=== PATIENT | female | born 1960 | race Caucasian/White ===

== ENCOUNTER → 2017-11-25 | Day surgery (SDC) | payer BC ==
[~2017-11-25] MED LIST: EPINEPHrine 1 MG/ML VIAL; PROPOFOL 40 ML IV
[2017-11-25 09:33] LABS: ADD MAN DIFF? NO
[2017-11-25 09:37] LABS: BASO # 0.1 x10^3/uL (0.0-0.2); BASO % 1 % (0-3); EOS # 0.4 x10^3/uL (0.0-0.7); EOS % 4 % (0-3); HEMOGLOBIN 15.1 g/dL (12.0-15.5); LYMPH # 2.1 x10^3/uL (1.0-4.8); LYMPH % 20 % (24-48); MEAN CORPUSCULAR HEMOGLOBIN 31 pg (25-35); MEAN CORPUSCULAR HGB CONC 34 g/dL (31-37); MEAN CORPUSCULAR VOLUME 91 fL (79-100); MONO # 0.7 x10^3/uL (0.0-1.1); MONO % 6 % (0-9); NEUT # 7.5 x10^3uL (1.8-7.7); NEUT % 70 % (31-73); PLATELET COUNT 299 x10^3/uL (140-400); RED BLOOD COUNT 4.93 x10^6/uL (3.50-5.40); WHITE BLOOD COUNT 10.8 x10^3/uL (4.0-11.0)
[2017-11-25] MEDS: IV RINGERS,LACTATED 1000ML 1,000 ML IV (09:37)
[2017-11-25] MEDS: ALBUTEROL SULFATE 2.5 MG/3 ML NEBU. NEB (09:39)
[2017-11-25 09:53] LABS: INR 1.1 (0.8-1.1); PROTHROMBIN TIME PATIENT 13.2 SEC (11.7-14.0)
== END | disposition home or self-care (01) ==
LOC: SURG 08:55
DX: J98.4 Other disorders of lung (principal); E78.00 Pure hypercholesterolemia, unspecified; I10 Essential (primary) hypertension; J44.9 Chronic obstructive pulmonary disease, unspecified; K21.9 Gastro-esophageal reflux disease without esophagitis; F17.200 Nicotine dependence, unspecified, uncomplicated; Z79.899 Other long term (current) drug therapy; Z98.51 Tubal ligation status
CPT/HCPCS: 31622; 31625; 36415; 85025; 85610; 88305; 94640; J0171; J2704; J7613

== ENCOUNTER → 2017-12-10 | Outpatient (CLI) | payer BC | END | disposition home or self-care (01) | LOC: PETSC 09:17 | DX: R91.8 Other nonspecific abnormal finding of lung field (principal); I10 Essential (primary) hypertension; E78.00 Pure hypercholesterolemia, unspecified; J44.9 Chronic obstructive pulmonary disease, unspecified; K21.9 Gastro-esophageal reflux disease without esophagitis | CPT/HCPCS: 78815; A9552 ==

== ENCOUNTER 2017-12-18 07:09 | Outpatient (CLI) | payer BC ==
[2017-12-18 07:37] LABS: ADD MAN DIFF? NO
[2017-12-18 07:49] LABS: BASO # 0.1 x10^3/uL (0.0-0.2); BASO % 1 % (0-3); EOS # 0.3 x10^3/uL (0.0-0.7); EOS % 2 % (0-3); HEMOGLOBIN 14.5 g/dL (12.0-15.5); LYMPH # 2.7 x10^3/uL (1.0-4.8); LYMPH % 21 % (24-48); MEAN CORPUSCULAR HEMOGLOBIN 31 pg (25-35); MEAN CORPUSCULAR HGB CONC 34 g/dL (31-37); MEAN CORPUSCULAR VOLUME 92 fL (79-100); MONO % 8 % (0-9); NEUT # 8.5 x10^3uL (1.8-7.7); NEUT % 68 % (31-73); PLATELET COUNT 396 x10^3/uL (140-400); RED BLOOD COUNT 4.69 x10^6/uL (3.50-5.40); WHITE BLOOD COUNT 12.5 x10^3/uL (4.0-11.0)
[2017-12-18] MEDS ORDERED: LIDOCAINE WITH 8.4% SOD BICARB 3 ML DISP.SYRIN. (07:51)
[2017-12-18] MEDS ORDERED: fentaNYL PF VIAL 100 MCG/2 ML VIAL (07:51)
[2017-12-18] MEDS ORDERED: MIDAZOLAM HCL/PF 2 MG/2 ML VIAL. (07:51)
[2017-12-18 07:57] LABS: INR 1.1 (0.8-1.1); PARTIAL THROMBOPLASTIN TIME 32 SEC (24-38); PROTHROMBIN TIME PATIENT 13.6 SEC (11.7-14.0)
[2017-12-18] MEDS: MIDAZOLAM HCL/PF 2 MG/2 ML VIAL. IV (08:59)
[2017-12-18] MEDS: LIDOCAINE WITH 8.4% SOD BICARB 3 ML DISP.SYRIN. IJ (09:00)
[2017-12-18] MEDS: fentaNYL PF VIAL 100 MCG/2 ML VIAL IV (09:00)
== END 2017-12-18 12:05 | disposition home or self-care (01) ==
LOC: INTRAD 07:09
DX: C34.32 Malignant neoplasm of lower lobe, left bronchus or lung (principal); E78.00 Pure hypercholesterolemia, unspecified; I10 Essential (primary) hypertension; J44.9 Chronic obstructive pulmonary disease, unspecified; K21.9 Gastro-esophageal reflux disease without esophagitis; F17.210 Nicotine dependence, cigarettes, uncomplicated; Z72.89 Other problems related to lifestyle; Z79.01 Long term (current) use of anticoagulants; Z98.51 Tubal ligation status; Z79.899 Other long term (current) drug therapy; Z98.890 Other specified postprocedural states
CPT/HCPCS: 32405; 36415; 71045; 77012; 85025; 85610; 85730; 88305; 88341; 88342; 99152; 99153; J2250; J3010

== ENCOUNTER 2018-01-15 06:51 | Outpatient (CLI) | payer BC ==
[2018-01-15 07:13] LABS: ADD MAN DIFF? NO
[2018-01-15 07:19] LABS: BASO # 0.1 x10^3/uL (0.0-0.2); BASO % 1 % (0-3); EOS # 0.6 x10^3/uL (0.0-0.7); EOS % 5 % (0-3); HEMOGLOBIN 13.7 g/dL (12.0-15.5); LYMPH # 3.2 x10^3/uL (1.0-4.8); LYMPH % 26 % (24-48); MEAN CORPUSCULAR HEMOGLOBIN 30 pg (25-35); MEAN CORPUSCULAR HGB CONC 34 g/dL (31-37); MEAN CORPUSCULAR VOLUME 91 fL (79-100); MONO # 0.9 x10^3/uL (0.0-1.1); MONO % 7 % (0-9); NEUT # 7.3 x10^3uL (1.8-7.7); NEUT % 60 % (31-73); PLATELET COUNT 395 x10^3/uL (140-400); RED BLOOD COUNT 4.51 x10^6/uL (3.50-5.40); RED CELL DISTRIBUTION WIDTH 14.7 % (11.5-14.5); WHITE BLOOD COUNT 12.1 x10^3/uL (4.0-11.0)
[2018-01-15 07:31] LABS: INR 1.1 (0.8-1.1); PROTHROMBIN TIME PATIENT 13.3 SEC (11.7-14.0)
[2018-01-15 07:32] LABS: PARTIAL THROMBOPLASTIN TIME 32 SEC (24-38)
[2018-01-15] MEDS ORDERED: LIDOCAINE 1%/EPI 1:100,000 20 ML VIAL. (08:05)
[2018-01-15] MEDS: MIDAZOLAM HCL/PF 2 MG/2 ML VIAL. IV (08:30)
[2018-01-15] MEDS: fentaNYL PF VIAL 100 MCG/2 ML VIAL IV (08:30)
[2018-01-15] MEDS: LIDOCAINE 1%/EPI 1:100,000 20 ML VIAL. IJ (08:30)
[2018-01-15] MEDS ORDERED: fentaNYL PF VIAL 100 MCG/2 ML VIAL ×2 (08:33→08:56)
[2018-01-15] MEDS ORDERED: MIDAZOLAM HCL/PF 2 MG/2 ML VIAL. ×2 (08:33→08:56)
[2018-01-15] MEDS ORDERED: VANCOMYCIN 1GM IVPB FOR OMNI 250 ML (08:33)
[2018-01-15] MEDS: VANCOMYCIN 1GM IVPB FOR OMNI 250 ML IV (09:15)
== END 2018-01-15 11:05 | disposition home or self-care (01) ==
LOC: INTRAD 06:51
DX: C34.90 Malignant neoplasm of unspecified part of unspecified bronchus or lung (principal); I10 Essential (primary) hypertension; E78.00 Pure hypercholesterolemia, unspecified; J44.9 Chronic obstructive pulmonary disease, unspecified; K21.9 Gastro-esophageal reflux disease without esophagitis; Z98.51 Tubal ligation status; Z72.89 Other problems related to lifestyle; Z88.0 Allergy status to penicillin; Z79.899 Other long term (current) drug therapy; F17.210 Nicotine dependence, cigarettes, uncomplicated; Z79.01 Long term (current) use of anticoagulants
CPT/HCPCS: 36415; 36561; 76937; 77001; 85025; 85610; 85730; 99152; 99153; C1751; C1788; C1892; J2250; J3010; J3370; J3490

== ENCOUNTER 2018-01-16 13:48 | Emergency (ER) | payer BC | END 2018-01-16 14:52 | disposition home or self-care (01) | LOC: ER 13:48 | DX: Z46.89 Encounter for fitting and adjustment of other specified devices (principal); Z88.0 Allergy status to penicillin | CPT/HCPCS: 99281; 99282 ==

== ENCOUNTER → 2018-02-16 | Outpatient (CLI) | payer BC ==
[2018-01-16 14:30] VITALS: BP 169/72
[~2018-02-16] MED LIST changes: +ACLI400A2 IH; +ATOR10TA60 PO; -EPINEPHrine 1 MG/ML VIAL; +FLUT16SP NS; +HYDR-971 PO; +LOSA50TA7 PO; +PROAIR HFA8.5 GM INH; -PROPOFOL 40 ML IV
[2018-02-16 10:03] LABS: CREATININE 0.8 mg/dL (0.6-1.0); GFR 73.7
== END | disposition home or self-care (01) ==
LOC: LAB 09:18
PROVIDERS: ATTEND Internal Medicine Hematology & Oncology
DX: C34.32 Malignant neoplasm of lower lobe, left bronchus or lung (principal); I10 Essential (primary) hypertension; E78.00 Pure hypercholesterolemia, unspecified; K21.9 Gastro-esophageal reflux disease without esophagitis; Z88.0 Allergy status to penicillin
CPT/HCPCS: 36415; 82565

== ENCOUNTER 2018-03-03 11:58 | Inpatient (IN) | payer BC ==
[~2018-03-03] VITALS: Ht 165.1 cm; Wt 56.7 kg
[2018-03-03] MEDS ORDERED: ONDA8TAB9 PO (13:57)
[2018-03-03] MEDS ORDERED: ONDANSETRON ODT 4 MG TAB.RAPDIS. PO PRN (14:30)
[2018-03-03 14:36] LABS: BASO % 1 % (0-3); EOS % 2 % (0-3); HEMOGLOBIN 7.4 g/dL (12.0-15.5); LYMPH # 0.2 x10^3/uL (1.0-4.8); LYMPH % 40 % (24-48); MEAN CORPUSCULAR HEMOGLOBIN 31 pg (25-35); MEAN CORPUSCULAR HGB CONC 36 g/dL (31-37); MEAN CORPUSCULAR VOLUME 87 fL (79-100); MONO # 0.1 x10^3/uL (0.0-1.1); MONO % 20 % (0-9); NEUT # 0.2 x10^3uL (1.8-7.7); NEUT % 37 % (31-73); PLATELET COUNT 53 x10^3/uL (140-400); RED CELL DISTRIBUTION WIDTH 13.6 % (11.5-14.5)
[2018-03-03 14:49] VITALS: BP 111/62
[2018-03-03 14:53] LABS: HEMATOCRIT 20.8 % (36.0-47.0); WHITE BLOOD COUNT 0.6 x10^3/uL (4.0-11.0)
[2018-03-03 14:54] LABS: ALBUMIN 3.1 g/dL (3.4-5.0); ALBUMIN/GLOBULIN RATIO 0.8 (1.0-1.7); CALCIUM 9.1 mg/dL (8.5-10.1); CREATININE 0.6 mg/dL (0.6-1.0); GFR 102.7; POTASSIUM 3.4 mmol/L (3.5-5.1); TOTAL BILIRUBIN 0.8 mg/dL (0.2-1.0)
[2018-03-03 15:34] LABS: % BANDS 9 % (0-9); % EOS 1 % (0-5); % LYMPHS 42 % (24-48); % MONOS 15 % (0-10); % SEGS 33 % (35-66)
[2018-03-03 15:35] LABS: PLT ESTIMATE DECREASED (ADEQUATE)
--- NOTE | 2018-03-03 15:58 | PDOC1 ---
History and Physical Date of Admission Date of Admission 03/03/18 Identification/Chief Complaint Chief Complaint n/v Source Source: Patient History of Present Illness History of Present Illness 57yo F, with stage 3B lung cancer on chemo and RT , was sent from DR. Pickard office for n/v. Pt last chemo was 1 week ago, since then, she cont having daily N/V, low po intake. TOday she vomited priscilla. with esophagus spasm. has chills, no fever. chronic cough. WBC 0.7, plt 53, hb7.4 . coughing sputum with mild blood streaks. Past Medical History Past Medical History lung CA Cardiovascular: HTN Pulmonary: COPD Social History Smoke: Quit ALCOHOL: social Drugs: None Current Medications Current Medications Current Medications Medications (Trade) Dose Ordered Sig/Mark Start Time Stop Time Status Last Admin Dose Admin Morphine Sulfate (Morphine Sulfate) 4 mg PRN Q2HR PRN 03/03/18 14:15 Ondansetron HCl (Zofran Odt) 8 mg PRN Q8HRS PRN 03/03/18 14:30 Allergies Allergies Allergies Coded Allergies Type Severity Reaction Last Updated Verified Penicillins Allergy Intermediate Hives 11/25/17 Yes ROS Review of System CONSTITUTIONAL: No fever or chills EYES: No recent changes SKIN: No rash or itching CARDIOVASCULAR: No chest pain, syncope, palpitations, or edema RESPIRATORY: No SOB or cough GASTROINTESTINAL: No nausea, vomiting or abdominal pain NEUROLOGICAL: No headaches or weakness ENDOCRINE: No cold or heat intolerance GENITOURINARY: No urgency or frequency of urination MUSCULOSKELETAL: No back pain or joint pain LYMPHATICS: No enlarged lymph nodes PSYCHIATRIC: No anxiety or depression Physical Exam Physical Exam GEN.: No apparent distress. Alert and oriented. HEENT: Head is normocephalic, atraumatic NECK: Supple. LUNGS: Clear to auscultation. HEART: RRR, S1, S2 present. Peripheral pulses intact ABDOMEN: Soft, nontender. Positive bowel sounds. EXTREMITIES: Without any cyanosis. NEUROLOGIC: Normal speech, normal tone PSYCHIATRIC: Normal affect, normal mood. SKIN: No ulcerations Vitals Vitals Vital Signs Date Time Temp Pulse Resp B/P (MAP) Pulse Ox O2 Delivery O2 Flow Rate FiO2 03/03/18 14:49 98.6 127 17 111/62 (78) 100 Room Air 98.6 Labs Labs Laboratory Tests Test 03/03/18 14:20 White Blood Count 0.6 x10^3/uL (4.0-11.0) Red Blood Count 2.40 x10^6/uL (3.50-5.40) Hemoglobin 7.4 g/dL (12.0-15.5) Hematocrit 20.8 % (36.0-47.0) Mean Corpuscular Volume 87 fL (79-100) Mean Corpuscular Hemoglobin 31 pg (25-35) Mean Corpuscular Hemoglobin Concent 36 g/dL (31-37) Red Cell Distribution Width 13.6 % (11.5-14.5) Platelet Count 53 x10^3/uL (140-400) Neutrophils (%) (Auto) 37 % (31-73) Lymphocytes (%) (Auto) 40 % (24-48) Monocytes (%) (Auto) 20 % (0-9) Eosinophils (%) (Auto) 2 % (0-3) Basophils (%) (Auto) 1 % (0-3) Neutrophils # (Auto) 0.2 x10^3uL (1.8-7.7) Lymphocytes # (Auto) 0.2 x10^3/uL (1.0-4.8) Monocytes # (Auto) 0.1 x10^3/uL (0.0-1.1) Eosinophils # (Auto) 0.0 x10^3/uL (0.0-0.7) Basophils # (Auto) 0.0 x10^3/uL (0.0-0.2) Segmented Neutrophils % 33 % (35-66) Band Neutrophils % 9 % (0-9) Lymphocytes % 42 % (24-48) Monocytes % 15 % (0-10) Eosinophils % 1 % (0-5) Dohle Bodies Few Platelet Estimate Decreased (ADEQUATE) Sodium Level 138 mmol/L (136-145) Potassium Level 3.4 mmol/L (3.5-5.1) Chloride Level 100 mmol/L (98-107) Carbon Dioxide Level 27 mmol/L (21-32) Anion Gap 11 (6-14) Blood Urea Nitrogen 9 mg/dL (7-20) Creatinine 0.6 mg/dL (0.6-1.0) Estimated GFR (Cockcroft-Gault) 102.7 BUN/Creatinine Ratio 15 (6-20) Glucose Level 116 mg/dL (70-99) Calcium Level 9.1 mg/dL (8.5-10.1) Total Bilirubin 0.8 mg/dL (0.2-1.0) Aspartate Amino Transf (AST/SGOT) 10 U/L (15-37) Alanine Aminotransferase (ALT/SGPT) 8 U/L (14-59) Alkaline Phosphatase 78 U/L (46-116) Total Protein 7.0 g/dL (6.4-8.2) Albumin 3.1 g/dL (3.4-5.0) Albumin/Globulin Ratio 0.8 (1.0-1.7) Laboratory Tests Test 03/03/18 14:20 White Blood Count 0.6 x10^3/uL (4.0-11.0) Red Blood Count 2.40 x10^6/uL (3.50-5.40) Hemoglobin 7.4 g/dL (12.0-15.5) Hematocrit 20.8 % (36.0-47.0) Mean Corpuscular Volume 87 fL (79-100) Mean Corpuscular Hemoglobin 31 pg (25-35) Mean Corpuscular Hemoglobin Concent 36 g/dL (31-37) Red Cell Distribution Width 13.6 % (11.5-14.5) Platelet Count 53 x10^3/uL (140-400) Neutrophils (%) (Auto) 37 % (31-73) Lymphocytes (%) (Auto) 40 % (24-48) Monocytes (%) (Auto) 20 % (0-9) Eosinophils (%) (Auto) 2 % (0-3) Basophils (%) (Auto) 1 % (0-3) Neutrophils # (Auto) 0.2 x10^3uL (1.8-7.7) Lymphocytes # (Auto) 0.2 x10^3/uL (1.0-4.8) Monocytes # (Auto) 0.1 x10^3/uL (0.0-1.1) Eosinophils # (Auto) 0.0 x10^3/uL (0.0-0.7) Basophils # (Auto) 0.0 x10^3/uL (0.0-0.2) Segmented Neutrophils % 33 % (35-66) Band Neutrophils % 9 % (0-9) Lymphocytes % 42 % (24-48) Monocytes % 15 % (0-10) Eosinophils % 1 % (0-5) Dohle Bodies Few Platelet Estimate Decreased (ADEQUATE) Sodium Level 138 mmol/L (136-145) Potassium Level 3.4 mmol/L (3.5-5.1) Chloride Level 100 mmol/L (98-107) Carbon Dioxide Level 27 mmol/L (21-32) Anion Gap 11 (6-14) Blood Urea Nitrogen 9 mg/dL (7-20) Creatinine 0.6 mg/dL (0.6-1.0) Estimated GFR (Cockcroft-Gault) 102.7 BUN/Creatinine Ratio 15 (6-20) Glucose Level 116 mg/dL (70-99) Calcium Level 9.1 mg/dL (8.5-10.1) Total Bilirubin 0.8 mg/dL (0.2-1.0) Aspartate Amino Transf (AST/SGOT) 10 U/L (15-37) Alanine Aminotransferase (ALT/SGPT) 8 U/L (14-59) Alkaline Phosphatase 78 U/L (46-116) Total Protein 7.0 g/dL (6.4-8.2) Albumin 3.1 g/dL (3.4-5.0) Albumin/Globulin Ratio 0.8 (1.0-1.7) VTE Prophylaxis Ordered VTE Prophylaxis Devices: Yes VTE Pharmacological Prophylaxi: No Assessment/Plan Assessment/Plan intractable N/V from chemo h/o HTN, hld copd but no home meds lung Ca stage 3b, on chemo and RT hypokalemia pancytopenia from chemo RT related esophagitis PLAN: DR. BYRD pt, ipc will sign off tmr clear liquid diet for now, PPN check mag, miguelina replete K cbc daily RT, ONCO consult gi cocktail prn cxr gi ppx pain control abluterol , cough meds as needed. RT was hled since Thursday given low WBC MIRIAM JANG MD Mar 03, 2018 15:58
[2018-03-03] MEDS ORDERED: DOCUSATE SODIUM 100 MG CAPSULE. PO PRN (16:00)
[2018-03-03] MEDS ORDERED: traMADol 50 MG TABLET PO PRN (16:00)
[2018-03-03] MEDS ORDERED: HYDROcodone/APAP 5/325MG 1 TAB TABLET PO PRN (16:00)
[2018-03-03] MEDS ORDERED: POTASSIUM CHLORIDE 20 MEQ TABLET.ER. PO ONE (16:00)
[2018-03-03] MEDS ORDERED: guaiFENesin/CODEINE 100mg/10mg 5 ML LIQUID PO PRN (16:00)
[2018-03-03] MEDS ORDERED: ALBUTEROL SULFATE 2.5 MG/3 ML NEBU. NEB PRN (16:00)
[2018-03-03] MEDS ORDERED: AMINO AC 3%/ELECTROLYTE/GLYCER 1,000 ML IV SCH (16:00)
[2018-03-03] MEDS ORDERED: LIDO:MAALOX 1:1 20 ML SINGLE DOSE. PO PRN (16:00)
[2018-03-03] MEDS ORDERED: ACETAMINOPHEN 325 MG TABLET. PO PRN (16:00)
[2018-03-03 16:48] LABS: MAGNESIUM 1.3 mg/dL (1.8-2.4); PHOSPHORUS 2.4 mg/dL (2.6-4.7)
--- NOTE | 2018-03-03 18:58 | PDOC2 ---
CONSULT Date of Consult Date of Consult DATE: 03/03/18 TIME: 18:45 Reason for consultation: Nausea and vomiting Consult: Hematology oncology, Dr. Dillon Adan History of present illness: She is a 57-year-old female with history of stage III lung cancer on chemotherapy, she came in with nausea and vomiting, it is severe, it is persistent, worse with chemotherapy and radiation therapy, associated with some radiation esophagitis, and she hasn't had any full meals and quite some time, she hasn't eaten anything today, and has lost about 20-30 pounds over the last few months. It's also associated with some weakness, she's taken some nausea pills but they come up quickly so they don't help. XRT has been on hold for a few days due to cytopenias related to chemotherapy and radiation. Past medical history: Lung cancer Hypertension Hyperlipidemia COPD Past surgical history: Lung biopsy Ovarian cyst removal Tonsillectomy Tubal ligation Allergies: Penicillin Medications: See attached list Social history: , still smoking, social alcohol Family history: Mother with colon cancer Review of systems: No fevers, constipation, rash related to radiation over the port and the right chest, headaches severe now, no dysuria, weak, tired, hungry , nauseous, esophageal spasms after eating, shortness of breath after coughing spells, 20-30 pound weight loss lately, has not eaten today, otherwise 10 point review of systems is negative Physical exam: Vitals reviewed, no fevers Gen.: thin, malaised, in no acute distress, resting in bed HEENT: mucous membranes dry, head normocephalic atraumatic Neck: Supple, no lymphadenopathy Lymph nodes: No palpable lymphadenopathy neck or axilla Lungs: Breathing comfortably on room air, no evidence of respiratory distress Abdomen: Soft, nontender, nondistended Extremities: No cyanosis or edema Skin: Erythema over the right chest and over the port area related to radiation Neuro: Alert and oriented 3 Psych: Normal mood and affect Lab reviewed: White count 2.6, hemoglobin 7.4, platelets 53, potassium 3.4, magnesium 1.3, phosphorus 2.4, creatinine 0.6 Rads reviewed: No current radiology scans though her last brain MRI from 01 January showed no evidence of disease Case discussed with: Patient and her , and her nurse, records reviewed in [facility] and [facility], please see note for summary details. Assessment and Plan: 57-year-old female with stage IIIB non-small cell lung adenocarcinoma diagnosed December 2017, currently cycle 2 day 14 of cisplatin and etoposide and radiotherapy, admitted due to nausea and vomiting, esophageal spasms, and cytopenias. Nausea and vomiting: She has Zofran ordered IV as well as Compazine IV will be ordered, pending IV fluid replacement as soon as she has IV access, a peripheral IV would be OK as they had trouble assessing her port and she has some erythema over that area related to radiation Lung ca: tx on hold during acute admit cytopenias: due to tx, no fevers, transfuse prn Hb <7 tobacco abuse: Highly recommend smoking cessation Hypokalemia and hypomagnesemia and hypophosphatemia: Defer replacement to primary Esophageal spasms: She has a proton pump inhibitor and GI cocktail ordered when necessary as well as pain meds when necessary Thank you kindly for this consultation, Dr. Pickard will return in the morning, and please don't hesitate to call with any further questions. Past Medical History Cardiovascular: HTN Pulmonary: COPD Social History Quit ALCOHOL: social Drugs: None Current Medications Current Medications Current Medications Morphine Sulfate (Morphine Sulfate) 4 mg PRN Q2HR PRN IV MODERATE PAIN; Start 03/03/18 at 14:15 Ondansetron HCl (Zofran Odt) 8 mg PRN Q8HRS PRN PO NAUSEA/VOMITING; Start 03/03 at 14:30 Amino Acids/ Glycerin/ Electrolytes 1,000 ml @ 80 mls/hr [id number] IV ; Start at 16:00; Stop 03/03/18 at 18:19; Status DC Acetaminophen (Tylenol) 650 mg PRN Q6HRS PRN PO FEVER; Start 03/03/18 at 16:00 Ondansetron HCl (Zofran) 4 mg PRN Q6HRS PRN IV NAUSEA/VOMITING; Start 03/03/18 at 16:00 Morphine Sulfate (Morphine Sulfate) 2 mg PRN Q2HR PRN IV MODERATE TO SEVERE PAIN; Start 03/03/18 at 16:00 Tramadol HCl (Ultram) 50 mg PRN Q6HRS PRN PO MILD TO MODERATE PAIN; Start 03/03 at 16:00 Docusate Sodium (Colace) 100 mg PRN DAILY PRN PO CONSTIPATION; Start 03/03/18 at 16:00 Acetaminophen/ Hydrocodone Bitart (Lortab 5/325) 1 tab PRN Q4HRS PRN PO MODERATE PAIN; Start 03/03/18 at 16:00 Multi-Ingredient Mouthwash/Gargle (Gi Cocktail) 20 ml PRN QID PRN PO CHEST PAIN ; Start 03/03/18 at 16:00 Pantoprazole Sodium (Protonix) 40 mg DAILYAC PO ; Start 03/04/18 at 07:30 Potassium Chloride (Klor-Con) 40 meq 1X ONCE PO Last administered on at 18:16; Start 03/03/18 at 16:00; Stop 03/03/18 at 16:01; Status DC Albuterol Sulfate (Ventolin Neb Soln) 2.5 mg PRN Q4HRS PRN NEB SHORTNESS OF BREATH; Start 03/03/18 at 16:00 Guaifenesin/ Codeine Phosphate (Robitussin Ac) 5 ml PRN Q6HRS PRN PO COUGH; Start 03/03/18 at 16:00 Amino Acids/ Glycerin/ Electrolytes 1,000 ml @ 80 mls/hr [id number] IV ; Start at 19:00 Active Scripts Active Reported Zofran (Ondansetron Hcl) 8 Mg Tablet 1 Tab PO PRN Q8HRS Allergies Allergies: Coded Allergies: Penicillins (Verified Allergy, Intermediate, Hives, 11/25/17) Vitals VITALS Vital Signs Date Time Temp Pulse Resp B/P (MAP) Pulse Ox O2 Delivery O2 Flow Rate FiO2 03/03/18 14:49 98.6 127 17 111/62 (78) 100 Room Air 98.6 Labs Labs Laboratory Tests Test 03/03/18 14:20 White Blood Count 0.6 x10^3/uL (4.0-11.0) Red Blood Count 2.40 x10^6/uL (3.50-5.40) Hemoglobin 7.4 g/dL (12.0-15.5) Hematocrit 20.8 % (36.0-47.0) Mean Corpuscular Volume 87 fL (79-100) Mean Corpuscular Hemoglobin 31 pg (25-35) Mean Corpuscular Hemoglobin Concent 36 g/dL (31-37) Red Cell Distribution Width 13.6 % (11.5-14.5) Platelet Count 53 x10^3/uL (140-400) Neutrophils (%) (Auto) 37 % (31-73) Lymphocytes (%) (Auto) 40 % (24-48) Monocytes (%) (Auto) 20 % (0-9) Eosinophils (%) (Auto) 2 % (0-3) Basophils (%) (Auto) 1 % (0-3) Neutrophils # (Auto) 0.2 x10^3uL (1.8-7.7) Lymphocytes # (Auto) 0.2 x10^3/uL (1.0-4.8) Monocytes # (Auto) 0.1 x10^3/uL (0.0-1.1) Eosinophils # (Auto) 0.0 x10^3/uL (0.0-0.7) Basophils # (Auto) 0.0 x10^3/uL (0.0-0.2) Segmented Neutrophils % 33 % (35-66) Band Neutrophils % 9 % (0-9) Lymphocytes % 42 % (24-48) Monocytes % 15 % (0-10) Eosinophils % 1 % (0-5) Dohle Bodies Few Platelet Estimate Decreased (ADEQUATE) Sodium Level 138 mmol/L (136-145) Potassium Level 3.4 mmol/L (3.5-5.1) Chloride Level 100 mmol/L (98-107) Carbon Dioxide Level 27 mmol/L (21-32) Anion Gap 11 (6-14) Blood Urea Nitrogen 9 mg/dL (7-20) Creatinine 0.6 mg/dL (0.6-1.0) Estimated GFR (Cockcroft-Gault) 102.7 BUN/Creatinine Ratio 15 (6-20) Glucose Level 116 mg/dL (70-99) Calcium Level 9.1 mg/dL (8.5-10.1) Phosphorus Level 2.4 mg/dL (2.6-4.7) Magnesium Level 1.3 mg/dL (1.8-2.4) Total Bilirubin 0.8 mg/dL (0.2-1.0) Aspartate Amino Transf (AST/SGOT) 10 U/L (15-37) Alanine Aminotransferase (ALT/SGPT) 8 U/L (14-59) Alkaline Phosphatase 78 U/L (46-116) Total Protein 7.0 g/dL (6.4-8.2) Albumin 3.1 g/dL (3.4-5.0) Albumin/Globulin Ratio 0.8 (1.0-1.7) Laboratory Tests Test 03/03/18 14:20 White Blood Count 0.6 x10^3/uL (4.0-11.0) Red Blood Count 2.40 x10^6/uL (3.50-5.40) Hemoglobin 7.4 g/dL (12.0-15.5) Hematocrit 20.8 % (36.0-47.0) Mean Corpuscular Volume 87 fL (79-100) Mean Corpuscular Hemoglobin 31 pg (25-35) Mean Corpuscular Hemoglobin Concent 36 g/dL (31-37) Red Cell Distribution Width 13.6 % (11.5-14.5) Platelet Count 53 x10^3/uL (140-400) Neutrophils (%) (Auto) 37 % (31-73) Lymphocytes (%) (Auto) 40 % (24-48) Monocytes (%) (Auto) 20 % (0-9) Eosinophils (%) (Auto) 2 % (0-3) Basophils (%) (Auto) 1 % (0-3) Neutrophils # (Auto) 0.2 x10^3uL (1.8-7.7) Lymphocytes # (Auto) 0.2 x10^3/uL (1.0-4.8) Monocytes # (Auto) 0.1 x10^3/uL (0.0-1.1) Eosinophils # (Auto) 0.0 x10^3/uL (0.0-0.7) Basophils # (Auto) 0.0 x10^3/uL (0.0-0.2) Segmented Neutrophils % 33 % (35-66) Band Neutrophils % 9 % (0-9) Lymphocytes % 42 % (24-48) Monocytes % 15 % (0-10) Eosinophils % 1 % (0-5) Dohle Bodies Few Platelet Estimate Decreased (ADEQUATE) Sodium Level 138 mmol/L (136-145) Potassium Level 3.4 mmol/L (3.5-5.1) Chloride Level 100 mmol/L (98-107) Carbon Dioxide Level 27 mmol/L (21-32) Anion Gap 11 (6-14) Blood Urea Nitrogen 9 mg/dL (7-20) Creatinine 0.6 mg/dL (0.6-1.0) Estimated GFR (Cockcroft-Gault) 102.7 BUN/Creatinine Ratio 15 (6-20) Glucose Level 116 mg/dL (70-99) Calcium Level 9.1 mg/dL (8.5-10.1) Phosphorus Level 2.4 mg/dL (2.6-4.7) Magnesium Level 1.3 mg/dL (1.8-2.4) Total Bilirubin 0.8 mg/dL (0.2-1.0) Aspartate Amino Transf (AST/SGOT) 10 U/L (15-37) Alanine Aminotransferase (ALT/SGPT) 8 U/L (14-59) Alkaline Phosphatase 78 U/L (46-116) Total Protein 7.0 g/dL (6.4-8.2) Albumin 3.1 g/dL (3.4-5.0) Albumin/Globulin Ratio 0.8 (1.0-1.7) DILLON ADAN MD Mar 03, 2018 18:58
[2018-03-03 19:34] VITALS: BP 130/66
[2018-03-03] MEDS: AMINO AC 3%/ELECTROLYTE/GLYCER 1,000 ML IV SCH (19:36)
[2018-03-03] MEDS: ONDANSETRON PF 4 MG/2 ML VIAL. IV PRN (19:38)
[2018-03-03] MEDS: MORPHINE SULFATE 4 MG/ML VIAL. IV PRN ×2 (19:44→23:58)
[2018-03-04] VITALS (7 sets, daily range): BP systolic 97–131; BP diastolic 48–71
[2018-03-04] MEDS: ONDANSETRON PF 4 MG/2 ML VIAL. IV PRN ×2 (06:21→11:13)
[2018-03-04] MEDS: MORPHINE SULFATE 2 MG/ML VIAL. IV PRN (06:21)
[2018-03-04 06:50] LABS: CALCIUM 9.2 mg/dL (8.5-10.1); CREATININE 0.5 mg/dL (0.6-1.0); GFR 126.7; POTASSIUM 3.6 mmol/L (3.5-5.1)
[2018-03-04 06:52] LABS: BASO % 1 % (0-3); EOS % 4 % (0-3); HEMOGLOBIN 7.5 g/dL (12.0-15.5); LYMPH # 0.4 x10^3/uL (1.0-4.8); LYMPH % 47 % (24-48); MEAN CORPUSCULAR HEMOGLOBIN 31 pg (25-35); MEAN CORPUSCULAR HGB CONC 36 g/dL (31-37); MEAN CORPUSCULAR VOLUME 87 fL (79-100); MONO # 0.2 x10^3/uL (0.0-1.1); MONO % 20 % (0-9); NEUT # 0.3 x10^3uL (1.8-7.7); NEUT % 29 % (31-73); PLATELET COUNT 69 x10^3/uL (140-400); RED BLOOD COUNT 2.38 x10^6/uL (3.50-5.40)
[2018-03-04 07:23] LABS: HEMATOCRIT 20.6 % (36.0-47.0); WHITE BLOOD COUNT 0.9 x10^3/uL (4.0-11.0)
[2018-03-04] MEDS ORDERED: MAGNESIUM SULFATE 2GM 50 ML IV ONE (08:00)
--- NOTE | 2018-03-04 08:02 | PDOC ---
SUBJECTIVE Subjective Doing somewhat better, no vomiting since yesterday am. OBJECTIVE Objective Reviewed. Vital Signs Vital Signs Date Time Temp Pulse Resp B/P (MAP) Pulse Ox O2 Delivery O2 Flow Rate FiO2 03/04/18 07:10 98.4 110 17 109/56 (73) 97 Room Air 98.4 03/04/18 02:49 99.1 115 18 110/48 (68) 98 Room Air 99.1 03/04/18 00:00 99.3 107 16 131/71 (91) 96 Room Air 99.3 03/03/18 20:05 Room Air 03/03/18 19:40 97 Room Air 03/03/18 19:34 98.9 102 16 130/66 (87) 98 Room Air 98.9 03/03/18 14:49 98.6 127 17 111/62 (78) 100 Room Air 98.6 03/03/18 14:44 Room Air I & O Intake and Output 03/04/18 07:00 Intake Total 290 ml Balance 290 ml Intake Oral 290 ml PHYSICAL EXAM Physical Exam Alert, oriented RRR CTAB Abd soft, NT, ND No edema ASSESSMENT/PLAN Assessment/Plan Intractable N/V from chemo H/o HTN, hld copd but no home meds Lung cancer stage 3b, holding chemo and RT during admission Hypokalemia Hypomagnesemia Pancytopenia from chemo RT related esophagitis GI soft diet, PPN Replace Mg Repeat labs in AM Onc following COMMENT Lab Laboratory Tests Test 03/03/18 14:20 03/04/18 06:30 White Blood Count 0.6 x10^3/uL (4.0-11.0) 0.9 x10^3/uL (4.0-11.0) Red Blood Count 2.40 x10^6/uL (3.50-5.40) 2.38 x10^6/uL (3.50-5.40) Hemoglobin 7.4 g/dL (12.0-15.5) 7.5 g/dL (12.0-15.5) Hematocrit 20.8 % (36.0-47.0) 20.6 % (36.0-47.0) Mean Corpuscular Volume 87 fL (79-100) 87 fL (79-100) Mean Corpuscular Hemoglobin 31 pg (25-35) 31 pg (25-35) Mean Corpuscular Hemoglobin Concent 36 g/dL (31-37) 36 g/dL (31-37) Red Cell Distribution Width 13.6 % (11.5-14.5) 14.0 % (11.5-14.5) Platelet Count 53 x10^3/uL (140-400) 69 x10^3/uL (140-400) Neutrophils (%) (Auto) 37 % (31-73) 29 % (31-73) Lymphocytes (%) (Auto) 40 % (24-48) 47 % (24-48) Monocytes (%) (Auto) 20 % (0-9) 20 % (0-9) Eosinophils (%) (Auto) 2 % (0-3) 4 % (0-3) Basophils (%) (Auto) 1 % (0-3) 1 % (0-3) Neutrophils # (Auto) 0.2 x10^3uL (1.8-7.7) 0.3 x10^3uL (1.8-7.7) Lymphocytes # (Auto) 0.2 x10^3/uL (1.0-4.8) 0.4 x10^3/uL (1.0-4.8) Monocytes # (Auto) 0.1 x10^3/uL (0.0-1.1) 0.2 x10^3/uL (0.0-1.1) Eosinophils # (Auto) 0.0 x10^3/uL (0.0-0.7) 0.0 x10^3/uL (0.0-0.7) Basophils # (Auto) 0.0 x10^3/uL (0.0-0.2) 0.0 x10^3/uL (0.0-0.2) Segmented Neutrophils % 33 % (35-66) Band Neutrophils % 9 % (0-9) Lymphocytes % 42 % (24-48) Monocytes % 15 % (0-10) Eosinophils % 1 % (0-5) Dohle Bodies Few Platelet Estimate Decreased (ADEQUATE) Sodium Level 138 mmol/L (136-145) 136 mmol/L (136-145) Potassium Level 3.4 mmol/L (3.5-5.1) 3.6 mmol/L (3.5-5.1) Chloride Level 100 mmol/L (98-107) 99 mmol/L (98-107) Carbon Dioxide Level 27 mmol/L (21-32) 28 mmol/L (21-32) Anion Gap 11 (6-14) 9 (6-14) Blood Urea Nitrogen 9 mg/dL (7-20) 10 mg/dL (7-20) Creatinine 0.6 mg/dL (0.6-1.0) 0.5 mg/dL (0.6-1.0) Estimated GFR (Cockcroft-Gault) 102.7 126.7 BUN/Creatinine Ratio 15 (6-20) Glucose Level 116 mg/dL (70-99) 107 mg/dL (70-99) Calcium Level 9.1 mg/dL (8.5-10.1) 9.2 mg/dL (8.5-10.1) Phosphorus Level 2.4 mg/dL (2.6-4.7) Magnesium Level 1.3 mg/dL (1.8-2.4) Total Bilirubin 0.8 mg/dL (0.2-1.0) Aspartate Amino Transf (AST/SGOT) 10 U/L (15-37) Alanine Aminotransferase (ALT/SGPT) 8 U/L (14-59) Alkaline Phosphatase 78 U/L (46-116) Total Protein 7.0 g/dL (6.4-8.2) Albumin 3.1 g/dL (3.4-5.0) Albumin/Globulin Ratio 0.8 (1.0-1.7) BLANCA HARRISON MD Mar 04, 2018 08:02
[2018-03-04] MEDS: PANTOPRAZOLE 40 MG TABLET.DR. PO SCH (08:53)
[2018-03-04] MEDS: MORPHINE SULFATE 4 MG/ML VIAL. IV PRN ×3 (11:13→20:53)
[2018-03-04] MEDS: AMINO AC 3%/ELECTROLYTE/GLYCER 1,000 ML IV SCH ×3 (11:14→23:13)
[2018-03-04] MEDS ORDERED: MAGNESIUM SULFATE 4GM 100 ML IV ONE (14:15)
--- NOTE | 2018-03-04 16:24 | PDOC ---
PROGRESS NOTES Subjective Subjective HPI -f/u of stage IIIB non-small cell lung adenocarcinoma ROS - has n/v but better Objective Objective Vital Signs Date Time Temp Pulse Resp B/P (MAP) Pulse Ox O2 Delivery O2 Flow Rate FiO2 03/04/18 15:15 18 Room Air 03/04/18 15:05 98.3 109 111/67 (82) 99 98.3 Intake and Output 03/04/18 07:00 Intake Total 290 ml Balance 290 ml Intake Oral 290 ml Physical Exam Heart: Normal S1, Normal S2 General: Alert, Oriented X3 Lungs: Clear to auscultation Neuro: Normal speech Psych/Mental Status: Mental status NL Assessment Assessment Imp/Plan: 1. stage IIIB non-small cell lung adenocarcinoma diagnosed December 2017, currently cycle 2 day 15 of cisplatin and etoposide and radiotherapy, admitted due to nausea and vomiting, esophageal spasms, and cytopenias. 2. Nausea and vomiting: cont Zofran ordered IV as well as Compazine IV and IV fluid replacement 3. Neutropenia - start neupogen. 4. Hypomagnesemia - ordered Mg. Comment Review of Relevant I have reviewed the following items jessica (where applicable) has been applied. Labs Laboratory Tests Test 03/03/18 14:20 03/04/18 06:30 White Blood Count 0.6 x10^3/uL (4.0-11.0) 0.9 x10^3/uL (4.0-11.0) Red Blood Count 2.40 x10^6/uL (3.50-5.40) 2.38 x10^6/uL (3.50-5.40) Hemoglobin 7.4 g/dL (12.0-15.5) 7.5 g/dL (12.0-15.5) Hematocrit 20.8 % (36.0-47.0) 20.6 % (36.0-47.0) Mean Corpuscular Volume 87 fL (79-100) 87 fL (79-100) Mean Corpuscular Hemoglobin 31 pg (25-35) 31 pg (25-35) Mean Corpuscular Hemoglobin Concent 36 g/dL (31-37) 36 g/dL (31-37) Red Cell Distribution Width 13.6 % (11.5-14.5) 14.0 % (11.5-14.5) Platelet Count 53 x10^3/uL (140-400) 69 x10^3/uL (140-400) Neutrophils (%) (Auto) 37 % (31-73) 29 % (31-73) Lymphocytes (%) (Auto) 40 % (24-48) 47 % (24-48) Monocytes (%) (Auto) 20 % (0-9) 20 % (0-9) Eosinophils (%) (Auto) 2 % (0-3) 4 % (0-3) Basophils (%) (Auto) 1 % (0-3) 1 % (0-3) Neutrophils # (Auto) 0.2 x10^3uL (1.8-7.7) 0.3 x10^3uL (1.8-7.7) Lymphocytes # (Auto) 0.2 x10^3/uL (1.0-4.8) 0.4 x10^3/uL (1.0-4.8) Monocytes # (Auto) 0.1 x10^3/uL (0.0-1.1) 0.2 x10^3/uL (0.0-1.1) Eosinophils # (Auto) 0.0 x10^3/uL (0.0-0.7) 0.0 x10^3/uL (0.0-0.7) Basophils # (Auto) 0.0 x10^3/uL (0.0-0.2) 0.0 x10^3/uL (0.0-0.2) Segmented Neutrophils % 33 % (35-66) Band Neutrophils % 9 % (0-9) Lymphocytes % 42 % (24-48) Monocytes % 15 % (0-10) Eosinophils % 1 % (0-5) Dohle Bodies Few Platelet Estimate Decreased (ADEQUATE) Sodium Level 138 mmol/L (136-145) 136 mmol/L (136-145) Potassium Level 3.4 mmol/L (3.5-5.1) 3.6 mmol/L (3.5-5.1) Chloride Level 100 mmol/L (98-107) 99 mmol/L (98-107) Carbon Dioxide Level 27 mmol/L (21-32) 28 mmol/L (21-32) Anion Gap 11 (6-14) 9 (6-14) Blood Urea Nitrogen 9 mg/dL (7-20) 10 mg/dL (7-20) Creatinine 0.6 mg/dL (0.6-1.0) 0.5 mg/dL (0.6-1.0) Estimated GFR (Cockcroft-Gault) 102.7 126.7 BUN/Creatinine Ratio 15 (6-20) Glucose Level 116 mg/dL (70-99) 107 mg/dL (70-99) Calcium Level 9.1 mg/dL (8.5-10.1) 9.2 mg/dL (8.5-10.1) Phosphorus Level 2.4 mg/dL (2.6-4.7) Magnesium Level 1.3 mg/dL (1.8-2.4) 1.4 mg/dL (1.8-2.4) Total Bilirubin 0.8 mg/dL (0.2-1.0) Aspartate Amino Transf (AST/SGOT) 10 U/L (15-37) Alanine Aminotransferase (ALT/SGPT) 8 U/L (14-59) Alkaline Phosphatase 78 U/L (46-116) Total Protein 7.0 g/dL (6.4-8.2) Albumin 3.1 g/dL (3.4-5.0) Albumin/Globulin Ratio 0.8 (1.0-1.7) Laboratory Tests Test 03/04/18 06:30 White Blood Count 0.9 x10^3/uL (4.0-11.0) Red Blood Count 2.38 x10^6/uL (3.50-5.40) Hemoglobin 7.5 g/dL (12.0-15.5) Hematocrit 20.6 % (36.0-47.0) Mean Corpuscular Volume 87 fL (79-100) Mean Corpuscular Hemoglobin 31 pg (25-35) Mean Corpuscular Hemoglobin Concent 36 g/dL (31-37) Red Cell Distribution Width 14.0 % (11.5-14.5) Platelet Count 69 x10^3/uL (140-400) Neutrophils (%) (Auto) 29 % (31-73) Lymphocytes (%) (Auto) 47 % (24-48) Monocytes (%) (Auto) 20 % (0-9) Eosinophils (%) (Auto) 4 % (0-3) Basophils (%) (Auto) 1 % (0-3) Neutrophils # (Auto) 0.3 x10^3uL (1.8-7.7) Lymphocytes # (Auto) 0.4 x10^3/uL (1.0-4.8) Monocytes # (Auto) 0.2 x10^3/uL (0.0-1.1) Eosinophils # (Auto) 0.0 x10^3/uL (0.0-0.7) Basophils # (Auto) 0.0 x10^3/uL (0.0-0.2) Sodium Level 136 mmol/L (136-145) Potassium Level 3.6 mmol/L (3.5-5.1) Chloride Level 99 mmol/L (98-107) Carbon Dioxide Level 28 mmol/L (21-32) Anion Gap 9 (6-14) Blood Urea Nitrogen 10 mg/dL (7-20) Creatinine 0.5 mg/dL (0.6-1.0) Estimated GFR (Cockcroft-Gault) 126.7 Glucose Level 107 mg/dL (70-99) Calcium Level 9.2 mg/dL (8.5-10.1) Magnesium Level 1.4 mg/dL (1.8-2.4) Medications Current Medications Morphine Sulfate (Morphine Sulfate) 4 mg PRN Q2HR PRN IV SEVERE PAIN Last administered on 03/04/18at 14:45; Start 03/03/18 at 14:15 Ondansetron HCl (Zofran Odt) 8 mg PRN Q8HRS PRN PO NAUSEA/VOMITING; Start 03/03 at 14:30 Amino Acids/ Glycerin/ Electrolytes 1,000 ml @ 80 mls/hr [id number] IV ; Start at 16:00; Stop 03/03/18 at 18:19; Status DC Acetaminophen (Tylenol) 650 mg PRN Q6HRS PRN PO FEVER; Start 03/03/18 at 16:00 Ondansetron HCl (Zofran) 4 mg PRN Q6HRS PRN IV NAUSEA/VOMITING, 1ST CHOICE Last administered on 03/04/18at 11:13; Start 03/03/18 at 16:00 Morphine Sulfate (Morphine Sulfate) 2 mg PRN Q2HR PRN IV MODERATE PAIN Last administered on 03/04/18at 06:21; Start 03/03/18 at 16:00 Tramadol HCl (Ultram) 50 mg PRN Q6HRS PRN PO MILD TO MODERATE PAIN; Start 03/03 at 16:00 Docusate Sodium (Colace) 100 mg PRN DAILY PRN PO CONSTIPATION; Start 03/03/18 at 16:00 Acetaminophen/ Hydrocodone Bitart (Lortab 5/325) 1 tab PRN Q4HRS PRN PO SEVERE PAIN; Start 03/03/18 at 16:00 Multi-Ingredient Mouthwash/Gargle (Gi Cocktail) 20 ml PRN QID PRN PO CHEST PAIN ; Start 03/03/18 at 16:00 Pantoprazole Sodium (Protonix) 40 mg DAILYAC PO Last administered on 03/04/18at 08:53; Start 03/04/18 at 07:30 Potassium Chloride (Klor-Con) 40 meq 1X ONCE PO Last administered on at 18:16; Start 03/03/18 at 16:00; Stop 03/03/18 at 16:01; Status DC Albuterol Sulfate (Ventolin Neb Soln) 2.5 mg PRN Q4HRS PRN NEB SHORTNESS OF BREATH; Start 03/03/18 at 16:00 Guaifenesin/ Codeine Phosphate (Robitussin Ac) 5 ml PRN Q6HRS PRN PO COUGH; Start 03/03/18 at 16:00 Amino Acids/ Glycerin/ Electrolytes 1,000 ml @ 80 mls/hr [id number] IV Last administered on 03/04/18at 11:14; Start 03/03/18 at 19:00 Prochlorperazine Edisylate (Compazine) 10 mg PRN Q6HRS PRN IV NAUSEA/VOMITING, 2ND CHOICE; Start 03/03/18 at 19:00 Tbo-Filgrastim (Granix) 480 mcg QHS SQ ; Start 03/04/18 at 21:00 Magnesium Sulfate 50 ml @ 25 mls/hr 1X ONCE IV Last administered on 03/04/18at 08:57; Start 03/04/18 at 08:00; Stop 03/04/18 at 09:59; Status DC Magnesium Sulfate/ Dextrose 100 ml @ 25 mls/hr 1X ONCE IV Last administered on 03/04/18at 14:35; Start 03/04/18 at 14:15; Stop 03/04/18 at 18:14 Active Scripts Active Reported Zofran (Ondansetron Hcl) 8 Mg Tablet 1 Tab PO PRN Q8HRS Vitals/I & O Vital Sign - Last 24 Hours 03/03/18 03/03/18 03/03/18 03/04/18 19:34 19:40 20:05 00:00 Temp 98.9 99.3 98.9 99.3 Pulse 102 107 Resp 16 16 B/P (MAP) 130/66 (87) 131/71 (91) Pulse Ox 98 97 96 O2 Delivery Room Air Room Air Room Air Room Air 03/04/18 03/04/18 03/04/18 03/04/18 02:49 06:51 07:10 08:00 Temp 99.1 98.4 99.1 98.4 Pulse 115 110 Resp 18 18 17 B/P (MAP) 110/48 (68) 109/56 (73) Pulse Ox 98 97 O2 Delivery Room Air Room Air Room Air Room Air 03/04/18 03/04/18 03/04/18 03/04/18 10:53 11:13 14:45 15:05 Temp 98.6 98.3 98.6 98.3 Pulse 99 109 Resp 16 2 18 17 B/P (MAP) 125/61 (82) 111/67 (82) Pulse Ox 97 99 O2 Delivery Room Air Room Air Room Air Room Air 03/04/18 15:15 Resp 18 O2 Delivery Room Air Intake and Output 03/03/18 03/03/18 03/04/18 15:00 23:00 07:00 Intake Total 0 ml 290 ml Balance 0 ml 290 ml CARLO HIGGINS MD Mar 04, 2018 16:23
--- NOTE | 2018-03-04 17:35 | PDOC ---
Provider Note Provider Note 57 you woman with St III NSCLC. Day 26 of 33 planned treatments of chest Rt with chemo, last rx 03/01/2018 Admitted with weakness, N and V. Better overall with IVF, Mg, replacement and Zofran. radiation esophagitis better with MS04. Lab 03/03 Hb 7.4, WBC 0.6 Plat 53K Mg 1.3 03/04 7.5 0.9 69K. 1.4 Able to swallow modest soft foods and hold sips of water down. Working on computer in bed. Impression: St III NSCLC with treatment pancytopenia. Hold treatment for now. She would like to delay resuming treatment due to work commitment to 03/15/2018. This choice is ok with me assuming that she will likely have a good recovery by then, Agree with current supportive plans with Mg replacement and neupogen. LAKE MURILLO MD Mar 04, 2018 17:35
[2018-03-04] MEDS: TBO-FILGRASTIM 480 MCG/0.8 ML SYRINGE. SQ SCH (20:05)
[2018-03-04] MEDS: PROCHLORPERAZINE 10 MG/2 ML VIAL. IV PRN (20:05)
[2018-03-05] VITALS (10 sets, daily range): BP systolic 92–120; BP diastolic 41–62
[2018-03-05 04:42] LABS: BASO % 0 % (0-3); EOS % 3 % (0-3); LYMPH # 0.4 x10^3/uL (1.0-4.8); LYMPH % 24 % (24-48); MEAN CORPUSCULAR HEMOGLOBIN 32 pg (25-35); MEAN CORPUSCULAR HGB CONC 37 g/dL (31-37); MEAN CORPUSCULAR VOLUME 86 fL (79-100); MONO # 0.3 x10^3/uL (0.0-1.1); MONO % 18 % (0-9); NEUT # 0.9 x10^3uL (1.8-7.7); NEUT % 56 % (31-73); PLATELET COUNT 83 x10^3/uL (140-400); RED BLOOD COUNT 2.15 x10^6/uL (3.50-5.40); RED CELL DISTRIBUTION WIDTH 13.9 % (11.5-14.5)
[2018-03-05 05:17] LABS: HEMOGLOBIN 6.8 g/dL (12.0-15.5); WHITE BLOOD COUNT 1.6 x10^3/uL (4.0-11.0)
[2018-03-05 05:18] LABS: HEMATOCRIT 18.5 % (36.0-47.0)
[2018-03-05 05:22] LABS: CALCIUM 8.2 mg/dL (8.5-10.1); CREATININE 0.7 mg/dL (0.6-1.0); GFR 85.9; MAGNESIUM 2.2 mg/dL (1.8-2.4); PHOSPHORUS 2.6 mg/dL (2.6-4.7); POTASSIUM 3.7 mmol/L (3.5-5.1)
--- NOTE | 2018-03-05 08:13 | PDOC ---
Provider Note Provider Note [id number] MANJULA BYRD MD Mar 05, 2018 08:13
--- NOTE | 2018-03-05 08:50 | PDOC ---
PROGRESS NOTES Subjective Subjective HPI -f/u of stage IIIB non-small cell lung adenocarcinoma diagnosed December 2017 ROS - had n/v yesterday, has esophageal spasms Objective Objective Vital Signs Date Time Temp Pulse Resp B/P (MAP) Pulse Ox O2 Delivery O2 Flow Rate FiO2 03/05/18 03:20 97.5 103 16 102/41 (61) 96 Room Air 97.5 Intake and Output 03/05/18 07:00 Intake Total 1200 ml Balance 1200 ml Intake Oral 1200 ml # Voids 5 Physical Exam Heart: Normal S1, Normal S2 General: Alert, Oriented X3 Lungs: Clear to auscultation Neuro: Normal speech Assessment Assessment Imp/Plan: 1. stage IIIB non-small cell lung adenocarcinoma diagnosed December 2017, currently cycle 2 day 16 of cisplatin and etoposide and radiotherapy, admitted due to nausea and vomiting, esophageal spasms, and cytopenias. 2. Nausea and vomiting: cont Zofran ordered IV as well as Compazine IV and IV fluid replacement 3. Neutropenia - started neupogen 03/04/18, WBC 1.2 now. 4. Hypomagnesemia - s/p Mg. improved. 5. Anemia worse at 6.8, ordered 1 PRBC I d/w Dr Kemp Comment Review of Relevant I have reviewed the following items jessica (where applicable) has been applied. Labs Laboratory Tests Test 03/03/18 14:20 03/04/18 06:30 03/05/18 03:10 03/05/18 03:30 White Blood Count 0.6 x10^3/uL (4.0-11.0) 0.9 x10^3/uL (4.0-11.0) 1.6 x10^3/uL (4.0-11.0) Red Blood Count 2.40 x10^6/uL (3.50-5.40) 2.38 x10^6/uL (3.50-5.40) 2.15 x10^6/uL (3.50-5.40) Hemoglobin 7.4 g/dL (12.0-15.5) 7.5 g/dL (12.0-15.5) 6.8 g/dL (12.0-15.5) Hematocrit 20.8 % (36.0-47.0) 20.6 % (36.0-47.0) 18.5 % (36.0-47.0) Mean Corpuscular Volume 87 fL (79-100) 87 fL (79-100) 86 fL (79-100) Mean Corpuscular Hemoglobin 31 pg (25-35) 31 pg (25-35) 32 pg (25-35) Mean Corpuscular Hemoglobin Concent 36 g/dL (31-37) 36 g/dL (31-37) 37 g/dL (31-37) Red Cell Distribution Width 13.6 % (11.5-14.5) 14.0 % (11.5-14.5) 13.9 % (11.5-14.5) Platelet Count 53 x10^3/uL (140-400) 69 x10^3/uL (140-400) 83 x10^3/uL (140-400) Neutrophils (%) (Auto) 37 % (31-73) 29 % (31-73) 56 % (31-73) Lymphocytes (%) (Auto) 40 % (24-48) 47 % (24-48) 24 % (24-48) Monocytes (%) (Auto) 20 % (0-9) 20 % (0-9) 18 % (0-9) Eosinophils (%) (Auto) 2 % (0-3) 4 % (0-3) 3 % (0-3) Basophils (%) (Auto) 1 % (0-3) 1 % (0-3) 0 % (0-3) Neutrophils # (Auto) 0.2 x10^3uL (1.8-7.7) 0.3 x10^3uL (1.8-7.7) 0.9 x10^3uL (1.8-7.7) Lymphocytes # (Auto) 0.2 x10^3/uL (1.0-4.8) 0.4 x10^3/uL (1.0-4.8) 0.4 x10^3/uL (1.0-4.8) Monocytes # (Auto) 0.1 x10^3/uL (0.0-1.1) 0.2 x10^3/uL (0.0-1.1) 0.3 x10^3/uL (0.0-1.1) Eosinophils # (Auto) 0.0 x10^3/uL (0.0-0.7) 0.0 x10^3/uL (0.0-0.7) 0.0 x10^3/uL (0.0-0.7) Basophils # (Auto) 0.0 x10^3/uL (0.0-0.2) 0.0 x10^3/uL (0.0-0.2) 0.0 x10^3/uL (0.0-0.2) Segmented Neutrophils % 33 % (35-66) Band Neutrophils % 9 % (0-9) Lymphocytes % 42 % (24-48) Monocytes % 15 % (0-10) Eosinophils % 1 % (0-5) Dohle Bodies Few Platelet Estimate Decreased (ADEQUATE) Sodium Level 138 mmol/L (136-145) 136 mmol/L (136-145) 136 mmol/L (136-145) Potassium Level 3.4 mmol/L (3.5-5.1) 3.6 mmol/L (3.5-5.1) 3.7 mmol/L (3.5-5.1) Chloride Level 100 mmol/L (98-107) 99 mmol/L (98-107) 100 mmol/L (98-107) Carbon Dioxide Level 27 mmol/L (21-32) 28 mmol/L (21-32) 29 mmol/L (21-32) Anion Gap 11 (6-14) 9 (6-14) 7 (6-14) Blood Urea Nitrogen 9 mg/dL (7-20) 10 mg/dL (7-20) 10 mg/dL (7-20) Creatinine 0.6 mg/dL (0.6-1.0) 0.5 mg/dL (0.6-1.0) 0.7 mg/dL (0.6-1.0) Estimated GFR (Cockcroft-Gault) 102.7 126.7 85.9 BUN/Creatinine Ratio 15 (6-20) Glucose Level 116 mg/dL (70-99) 107 mg/dL (70-99) 108 mg/dL (70-99) Calcium Level 9.1 mg/dL (8.5-10.1) 9.2 mg/dL (8.5-10.1) 8.2 mg/dL (8.5-10.1) Phosphorus Level 2.4 mg/dL (2.6-4.7) 2.6 mg/dL (2.6-4.7) Magnesium Level 1.3 mg/dL (1.8-2.4) 1.4 mg/dL (1.8-2.4) 2.2 mg/dL (1.8-2.4) Total Bilirubin 0.8 mg/dL (0.2-1.0) Aspartate Amino Transf (AST/SGOT) 10 U/L (15-37) Alanine Aminotransferase (ALT/SGPT) 8 U/L (14-59) Alkaline Phosphatase 78 U/L (46-116) Total Protein 7.0 g/dL (6.4-8.2) Albumin 3.1 g/dL (3.4-5.0) Albumin/Globulin Ratio 0.8 (1.0-1.7) Laboratory Tests Test 03/05/18 03:10 03/05/18 03:30 White Blood Count 1.6 x10^3/uL (4.0-11.0) Red Blood Count 2.15 x10^6/uL (3.50-5.40) Hemoglobin 6.8 g/dL (12.0-15.5) Hematocrit 18.5 % (36.0-47.0) Mean Corpuscular Volume 86 fL (79-100) Mean Corpuscular Hemoglobin 32 pg (25-35) Mean Corpuscular Hemoglobin Concent 37 g/dL (31-37) Red Cell Distribution Width 13.9 % (11.5-14.5) Platelet Count 83 x10^3/uL (140-400) Neutrophils (%) (Auto) 56 % (31-73) Lymphocytes (%) (Auto) 24 % (24-48) Monocytes (%) (Auto) 18 % (0-9) Eosinophils (%) (Auto) 3 % (0-3) Basophils (%) (Auto) 0 % (0-3) Neutrophils # (Auto) 0.9 x10^3uL (1.8-7.7) Lymphocytes # (Auto) 0.4 x10^3/uL (1.0-4.8) Monocytes # (Auto) 0.3 x10^3/uL (0.0-1.1) Eosinophils # (Auto) 0.0 x10^3/uL (0.0-0.7) Basophils # (Auto) 0.0 x10^3/uL (0.0-0.2) Sodium Level 136 mmol/L (136-145) Potassium Level 3.7 mmol/L (3.5-5.1) Chloride Level 100 mmol/L (98-107) Carbon Dioxide Level 29 mmol/L (21-32) Anion Gap 7 (6-14) Blood Urea Nitrogen 10 mg/dL (7-20) Creatinine 0.7 mg/dL (0.6-1.0) Estimated GFR (Cockcroft-Gault) 85.9 Glucose Level 108 mg/dL (70-99) Calcium Level 8.2 mg/dL (8.5-10.1) Phosphorus Level 2.6 mg/dL (2.6-4.7) Magnesium Level 2.2 mg/dL (1.8-2.4) Medications Current Medications Morphine Sulfate (Morphine Sulfate) 4 mg PRN Q2HR PRN IV SEVERE PAIN Last administered on 03/04/18at 20:53; Start 03/03/18 at 14:15 Ondansetron HCl (Zofran Odt) 8 mg PRN Q8HRS PRN PO NAUSEA/VOMITING; Start 03/03 at 14:30 Amino Acids/ Glycerin/ Electrolytes 1,000 ml @ 80 mls/hr [id number] IV ; Start at 16:00; Stop 03/03/18 at 18:19; Status DC Acetaminophen (Tylenol) 650 mg PRN Q6HRS PRN PO FEVER; Start 03/03/18 at 16:00 Ondansetron HCl (Zofran) 4 mg PRN Q6HRS PRN IV NAUSEA/VOMITING, 1ST CHOICE Last administered on 03/04/18at 11:13; Start 03/03/18 at 16:00 Morphine Sulfate (Morphine Sulfate) 2 mg PRN Q2HR PRN IV MODERATE PAIN Last administered on 03/04/18at 06:21; Start 03/03/18 at 16:00 Tramadol HCl (Ultram) 50 mg PRN Q6HRS PRN PO MILD TO MODERATE PAIN; Start 03/03 at 16:00 Docusate Sodium (Colace) 100 mg PRN DAILY PRN PO CONSTIPATION; Start 03/03/18 at 16:00 Acetaminophen/ Hydrocodone Bitart (Lortab 5/325) 1 tab PRN Q4HRS PRN PO SEVERE PAIN; Start 03/03/18 at 16:00 Multi-Ingredient Mouthwash/Gargle (Gi Cocktail) 20 ml PRN QID PRN PO CHEST PAIN ; Start 03/03/18 at 16:00 Pantoprazole Sodium (Protonix) 40 mg DAILYAC PO Last administered on 03/04/18at 08:53; Start 03/04/18 at 07:30 Potassium Chloride (Klor-Con) 40 meq 1X ONCE PO Last administered on at 18:16; Start 03/03/18 at 16:00; Stop 03/03/18 at 16:01; Status DC Albuterol Sulfate (Ventolin Neb Soln) 2.5 mg PRN Q4HRS PRN NEB SHORTNESS OF BREATH; Start 03/03/18 at 16:00 Guaifenesin/ Codeine Phosphate (Robitussin Ac) 5 ml PRN Q6HRS PRN PO COUGH; Start 03/03/18 at 16:00 Amino Acids/ Glycerin/ Electrolytes 1,000 ml @ 80 mls/hr [id number] IV Last administered on 03/04/18at 23:13; Start 03/03/18 at 19:00 Prochlorperazine Edisylate (Compazine) 10 mg PRN Q6HRS PRN IV NAUSEA/VOMITING, 2ND CHOICE Last administered on 03/04/18at 20:05; Start 03/03/18 at 19:00 Tbo-Filgrastim (Granix) 480 mcg QHS SQ Last administered on 03/04/18at 20:05; Start 03/04/18 at 21:00 Magnesium Sulfate 50 ml @ 25 mls/hr 1X ONCE IV Last administered on 03/04/18at 08:57; Start 03/04/18 at 08:00; Stop 03/04/18 at 09:59; Status DC Magnesium Sulfate/ Dextrose 100 ml @ 25 mls/hr 1X ONCE IV Last administered on 03/04/18at 14:35; Start 03/04/18 at 14:15; Stop 03/04/18 at 18:14; Status DC Nitroglycerin (Nitro-Bid Oint) 0.5 inch Q8HRS TP ; Start 03/05/18 at 09:00 Sucralfate (Carafate) 1 gm QIDACHS PEG ; Start 03/05/18 at 11:30 Active Scripts Active Reported Zofran (Ondansetron Hcl) 8 Mg Tablet 1 Tab PO PRN Q8HRS Vitals/I & O Vital Sign - Last 24 Hours 03/04/18 03/04/18 03/04/18 03/04/18 10:53 11:13 14:45 15:05 Temp 98.6 98.3 98.6 98.3 Pulse 99 109 Resp 16 2 18 17 B/P (MAP) 125/61 (82) 111/67 (82) Pulse Ox 97 99 O2 Delivery Room Air Room Air Room Air Room Air 03/04/18 03/04/18 03/04/18 03/04/18 15:15 19:15 20:15 23:15 Temp 98.4 98.1 98.4 98.1 Pulse 113 100 Resp 18 16 16 B/P (MAP) 112/59 (76) 97/52 (67) Pulse Ox 97 95 O2 Delivery Room Air Room Air Room Air Room Air 03/05/18 03:20 Temp 97.5 97.5 Pulse 103 Resp 16 B/P (MAP) 102/41 (61) Pulse Ox 96 O2 Delivery Room Air Intake and Output 03/04/18 03/04/18 03/05/18 15:00 23:00 07:00 Intake Total 200 ml 900 ml 100 ml Balance 200 ml 900 ml 100 ml CARLO HIGGINS MD Mar 05, 2018 08:50
[2018-03-05] MEDS: NITROGLYCERIN OINT 1 GM PACKET. TP SCH ×5 (09:00→22:35)
[2018-03-05] MEDS: PANTOPRAZOLE 40 MG TABLET.DR. PO SCH (09:33)
[2018-03-05] MEDS: MORPHINE SULFATE 2 MG/ML VIAL. IV PRN (09:33)
[2018-03-05] MEDS: ONDANSETRON PF 4 MG/2 ML VIAL. IV PRN ×2 (09:33→16:55)
--- NOTE | 2018-03-05 11:11 | PN ---
DATE: 03/05/2018 The patient still reports mid esophageal pain and spasm-like symptoms, as well as significant dysphagia. She is afebrile. White count is up to 1600 with Granix and platelets are still low and hemoglobin is still very low. No acute new physical findings are noted. She continues on IV procalamine and limited intake, so I added nitroglycerin paste to see if that helps resolve any esophageal spasm with less side effects, then sublingual p.r.n. and also try added oral Carafate for the esophagitis as well. Continue otherwise current care. MANJULA BYRD MD DR: [email or web address]/lisa JOB#: [id number] / [id number]
[2018-03-05] MEDS: PROCHLORPERAZINE 10 MG/2 ML VIAL. IV PRN (12:36)
[2018-03-05] MEDS: SUCRALFATE 1 GM/10 ML ORAL.SUSP. PEG SCH ×3 (12:36→20:07)
--- NOTE | 2018-03-05 15:38 | PDOC ---
Provider Note Provider Note 7 you woman with St III NSCLC. Day 26 of 33 planned treatments of chest Rt with chemo, last rx 03/01/2018 Admitted with weakness, N and V. Better overall with IVF, Mg, replacement and Zofran. radiation esophagitis better with MS04. Eating somewhat better, still painful to swallow. Carafate seems to help some. Lab 03/03 Hb 7.4, WBC 0.6 Plat 53K Mg 1.3 03/04 7.5 0.9 69K. 1.4 03/05 6.8 1.6 83K Able to swallow modest soft foods and hold sips of water down. Working on computer in bed. Impression: St III NSCLC with treatment pancytopenia. WBC and Plats now improving. Hold treatment for now. She would like to delay resuming treatment due to work commitment to 03/15/2018. This choice is ok with me assuming that she will likely have a good recovery by then, Agree with current supportive plans with Mg replacement and neupogen. Now receiving 1 pRBCs I will be out 03/08 and 03/09. I anticipate that we will see her as an outpt to resume radiation 03/15/2018. LAKE MURILLO MD Mar 04, 2018 17:35 LAKE MURILLO MD Mar 05, 2018 15:38
[2018-03-05] MEDS: MORPHINE SULFATE 4 MG/ML VIAL. IV PRN ×2 (15:56→20:10)
[2018-03-05 17:13] LABS: HEMATOCRIT 22.8 % (36.0-47.0); HEMOGLOBIN 8.3 g/dL (12.0-15.5)
[2018-03-05] MEDS: AMINO AC 3%/ELECTROLYTE/GLYCER 1,000 ML IV SCH (20:07)
[2018-03-05] MEDS: TBO-FILGRASTIM 480 MCG/0.8 ML SYRINGE. SQ SCH (20:08)
[2018-03-06] MEDS: ONDANSETRON PF 4 MG/2 ML VIAL. IV PRN ×2 (02:43→11:31)
[2018-03-06] MEDS: MORPHINE SULFATE 4 MG/ML VIAL. IV PRN ×3 (02:43→11:31)
[2018-03-06 03:40] VITALS: BP 104/57
[2018-03-06 07:00] VITALS: BP 92/52
[2018-03-06] MEDS: SUCRALFATE 1 GM/10 ML ORAL.SUSP. PEG SCH ×2 (08:16→11:30)
[2018-03-06] MEDS: PROCHLORPERAZINE 10 MG/2 ML VIAL. IV PRN (08:17)
[2018-03-06] MEDS: PANTOPRAZOLE 40 MG TABLET.DR. PO SCH (08:17)
[2018-03-06] MEDS: AMINO AC 3%/ELECTROLYTE/GLYCER 1,000 ML IV SCH (08:18)
--- NOTE | 2018-03-06 10:15 | PDOC ---
PROGRESS NOTES Subjective Subjective HPI - f/u of stage IIIB non-small cell lung adenocarcinoma diagnosed December 2017 ROS - she had another episode of n/v yesterday Objective Objective Vital Signs Date Time Temp Pulse Resp B/P (MAP) Pulse Ox O2 Delivery O2 Flow Rate FiO2 03/06/18 08:47 Room Air 03/06/18 07:00 98.1 116 92/52 (65) 96 98.1 03/06/18 03:40 18 Intake and Output 03/06/18 07:00 Intake Total 1208 ml Balance 1208 ml Intake Oral 540 ml Blood Product IV Normal Saline Flush 668 ml # Voids 2 Physical Exam Heart: Normal S1, Normal S2 General: Alert, Oriented X3 Lungs: Clear to auscultation Neuro: Normal speech Psych/Mental Status: Mental status NL Assessment Assessment Imp/Plan: 1. stage IIIB non-small cell lung adenocarcinoma diagnosed December 2017, currently cycle 2 day 17 of cisplatin and etoposide and radiotherapy, admitted due to nausea and vomiting, esophageal spasms, and cytopenias. 2. Nausea and vomiting: cont Zofran ordered IV as well as Compazine IV and IV fluid replacement 3. Neutropenia - started neupogen 03/04/18, WBC 1.2 now. 4. Hypomagnesemia - s/p Mg. improved. 5. Anemia worse at 6.8 on 03/05/18, s/p 1PRBC 03/05/18 Hb now 8.3 Comment Review of Relevant I have reviewed the following items jessica (where applicable) has been applied. Labs Laboratory Tests Test 03/05/18 03:10 03/05/18 03:30 03/05/18 17:00 03/06/18 05:40 White Blood Count 1.6 x10^3/uL (4.0-11.0) Red Blood Count 2.15 x10^6/uL (3.50-5.40) Hemoglobin 6.8 g/dL (12.0-15.5) 8.3 g/dL (12.0-15.5) Hematocrit 18.5 % (36.0-47.0) 22.8 % (36.0-47.0) Mean Corpuscular Volume 86 fL (79-100) Mean Corpuscular Hemoglobin 32 pg (25-35) Mean Corpuscular Hemoglobin Concent 37 g/dL (31-37) Red Cell Distribution Width 13.9 % (11.5-14.5) Platelet Count 83 x10^3/uL (140-400) Neutrophils (%) (Auto) 56 % (31-73) Lymphocytes (%) (Auto) 24 % (24-48) Monocytes (%) (Auto) 18 % (0-9) Eosinophils (%) (Auto) 3 % (0-3) Basophils (%) (Auto) 0 % (0-3) Neutrophils # (Auto) 0.9 x10^3uL (1.8-7.7) Lymphocytes # (Auto) 0.4 x10^3/uL (1.0-4.8) Monocytes # (Auto) 0.3 x10^3/uL (0.0-1.1) Eosinophils # (Auto) 0.0 x10^3/uL (0.0-0.7) Basophils # (Auto) 0.0 x10^3/uL (0.0-0.2) Sodium Level 136 mmol/L (136-145) Potassium Level 3.7 mmol/L (3.5-5.1) Chloride Level 100 mmol/L (98-107) Carbon Dioxide Level 29 mmol/L (21-32) Anion Gap 7 (6-14) Blood Urea Nitrogen 10 mg/dL (7-20) Creatinine 0.7 mg/dL (0.6-1.0) Estimated GFR (Cockcroft-Gault) 85.9 Glucose Level 108 mg/dL (70-99) Calcium Level 8.2 mg/dL (8.5-10.1) Phosphorus Level 2.6 mg/dL (2.6-4.7) Magnesium Level 2.2 mg/dL (1.8-2.4) 1.4 mg/dL (1.8-2.4) Laboratory Tests Test 03/05/18 17:00 03/06/18 05:40 Hemoglobin 8.3 g/dL (12.0-15.5) Hematocrit 22.8 % (36.0-47.0) Magnesium Level 1.4 mg/dL (1.8-2.4) Medications Current Medications Morphine Sulfate (Morphine Sulfate) 4 mg PRN Q2HR PRN IV SEVERE PAIN Last administered on 03/06/18at 08:17; Start 03/03/18 at 14:15 Ondansetron HCl (Zofran Odt) 8 mg PRN Q8HRS PRN PO NAUSEA/VOMITING; Start 03/03 at 14:30 Amino Acids/ Glycerin/ Electrolytes 1,000 ml @ 80 mls/hr [id number] IV ; Start at 16:00; Stop 03/03/18 at 18:19; Status DC Acetaminophen (Tylenol) 650 mg PRN Q6HRS PRN PO FEVER; Start 03/03/18 at 16:00 Ondansetron HCl (Zofran) 4 mg PRN Q6HRS PRN IV NAUSEA/VOMITING, 1ST CHOICE Last administered on 03/06/18at 02:43; Start 03/03/18 at 16:00 Morphine Sulfate (Morphine Sulfate) 2 mg PRN Q2HR PRN IV MODERATE PAIN Last administered on 03/05/18at 09:33; Start 03/03/18 at 16:00 Tramadol HCl (Ultram) 50 mg PRN Q6HRS PRN PO MILD TO MODERATE PAIN; Start 03/03 at 16:00 Docusate Sodium (Colace) 100 mg PRN DAILY PRN PO CONSTIPATION; Start 03/03/18 at 16:00 Acetaminophen/ Hydrocodone Bitart (Lortab 5/325) 1 tab PRN Q4HRS PRN PO SEVERE PAIN Last administered on 03/05/18at 15:18; Start 03/03/18 at 16:00 Multi-Ingredient Mouthwash/Gargle (Gi Cocktail) 20 ml PRN QID PRN PO CHEST PAIN ; Start 03/03/18 at 16:00 Pantoprazole Sodium (Protonix) 40 mg DAILYAC PO Last administered on 03/06/18at 08:17; Start 03/04/18 at 07:30 Potassium Chloride (Klor-Con) 40 meq 1X ONCE PO Last administered on at 18:16; Start 03/03/18 at 16:00; Stop 03/03/18 at 16:01; Status DC Albuterol Sulfate (Ventolin Neb Soln) 2.5 mg PRN Q4HRS PRN NEB SHORTNESS OF BREATH; Start 03/03/18 at 16:00 Guaifenesin/ Codeine Phosphate (Robitussin Ac) 5 ml PRN Q6HRS PRN PO COUGH; Start 03/03/18 at 16:00 Amino Acids/ Glycerin/ Electrolytes 1,000 ml @ 80 mls/hr [id number] IV Last administered on 03/06/18at 08:18; Start 03/03/18 at 19:00 Prochlorperazine Edisylate (Compazine) 10 mg PRN Q6HRS PRN IV NAUSEA/VOMITING, 2ND CHOICE Last administered on 03/06/18at 08:17; Start 03/03/18 at 19:00 Tbo-Filgrastim (Granix) 480 mcg QHS SQ Last administered on 03/05/18at 20:08; Start 03/04/18 at 21:00 Magnesium Sulfate 50 ml @ 25 mls/hr 1X ONCE IV Last administered on 03/04/18at 08:57; Start 03/04/18 at 08:00; Stop 03/04/18 at 09:59; Status DC Magnesium Sulfate/ Dextrose 100 ml @ 25 mls/hr 1X ONCE IV Last administered on 03/04/18at 14:35; Start 03/04/18 at 14:15; Stop 03/04/18 at 18:14; Status DC Nitroglycerin (Nitro-Bid Oint) 0.5 inch Q8HRS TP ; Start 03/05/18 at 09:00 Sucralfate (Carafate) 1 gm QIDACHS PEG Last administered on 03/06/18at 08:16; Start 03/05/18 at 11:30 Active Scripts Active Reported Zofran (Ondansetron Hcl) 8 Mg Tablet 1 Tab PO PRN Q8HRS Vitals/I & O Vital Sign - Last 24 Hours 03/05/18 03/05/18 03/05/18 03/05/18 11:00 13:27 14:27 15:00 Temp 97.9 99.1 97.9 97.9 97.9 99.1 97.9 97.9 Pulse 110 115 111 111 Resp 18 18 18 18 B/P (MAP) 98/48 (65) 120/62 98/55 98/55 (69) Pulse Ox 97 97 O2 Delivery Room Air Room Air 03/05/18 03/05/18 03/05/18 03/05/18 15:27 17:02 19:31 20:05 Temp 99.1 98.1 97.7 99.1 98.1 97.7 Pulse 119 112 104 Resp 18 18 16 B/P (MAP) 96/59 92/62 101/53 (69) Pulse Ox 99 O2 Delivery Room Air Room Air 03/05/18 03/06/18 03/06/18 03/06/18 23:18 03:40 07:00 08:00 Temp 97.9 98.1 98.1 97.9 98.1 98.1 Pulse 110 115 116 Resp 18 18 B/P (MAP) 112/52 (72) 104/57 (73) 92/52 (65) Pulse Ox 99 97 96 O2 Delivery Room Air Room Air Room Air Room Air 03/06/18 03/06/18 08:17 08:47 O2 Delivery Room Air Room Air Intake and Output 03/05/18 03/05/18 03/06/18 15:00 23:00 07:00 Intake Total 334 ml 634 ml 240 ml Balance 334 ml 634 ml 240 ml Nutrition Consultation Dietary Evaluation: Recommendations by RD: Increase Calorie Intake, Protein supplementation, PPN/ TPN Comments: ensure pudding bid added to meals PPN - continue at this time Expected Outcomes/Goals: to meet > 75% est nutr needs via po intake Interpretation of weight loss: >7.5% in 3 months Malnutrition Findings: Food and Nutrition Intake (Sev: <50% est energy req 5days Weight Status: Appropriate CARLO HIGGINS MD Mar 06, 2018 10:15
[2018-03-06 11:00] VITALS: BP 106/69
--- NOTE | 2018-03-06 11:27 | DISCH ---
DISCHARGE INSTRUCTIONS Condition on Discharge Condition on Discharge: Stable Activity After Discharge Activity Instructions for Disc: No restrictions, Bedrest today Lifting Instructions after Dis: No heavy lifting Weight Bearing Status after Di: As tolerated Diet after Discharge Diet after Discharge: Regular Wound Incision Care Wound/Incision Care: Keep wound/cast CDI Follow-Up Follow up with: per dr shay/venkata Treatment/Equipment after DC Adaptive Equipment Issued: None MANJULA BYRD MD Mar 06, 2018 11:27
--- NOTE | 2018-03-06 11:31 | PDOC ---
Provider Note Provider Note [id number] MANJULA BYRD MD Mar 06, 2018 11:31
--- NOTE | 2018-03-06 11:50 | DS ---
DATE OF DISCHARGE: 03/06/2018 HOSPITAL SUMMARY: A 57-year-old white female with stage 3B adenocarcinoma of the left lung. She is under treatment for radiation therapy and chemotherapy and came in with esophageal pain and nausea and vomiting. Her white count was down to 600 with 50%, absolute neutrophil count, platelets low at 53,000, hemoglobin 7.4. With treatment with Granix the white count came up to 1600, platelets up to 83,000, hemoglobin came up to 8.3 after 1 unit of packed red blood cells. Chemistry studies were unremarkable except for mildly low magnesium of 1.4. No imaging studies were done. She was given IV fluids with procalamine through her port, treatment with IV morphine, Zofran and then oral Carafate suspension, which seemed to help her and she is comfortable to be followed as an outpatient at this point. FINAL DIAGNOSES: 1. Radiation esophagitis. 2. Chemotherapy-induced leuko-thrombocytopenia and anemia. 3. Stage 3B adenocarcinoma of the lung. OPERATIONS, PROCEDURES, COMPLICATIONS: None. CONSULTATIONS: Dr. Peña and Dr. Pickard. DISPOSITION: We will add Carafate 1 gram q.i.d. liquid for 5 more days, then use as needed over the remaining course of her treatments. She has Roxanol at home and Zofran at home for home use. Soft diet, high protein, high fat intake was encouraged and continue office followups with Dr. Pickard and Dr. Peña and we can see her in my office on a p.r.n. basis. PROGNOSIS: Guarded. MANJULA BYRD MD DR: JEMAL/lisa JOB#: [id number] / [id number]
[2018-03-06] MEDS ORDERED: MAGNESIUM OXIDE 400 MG TABLET PO SCH (12:00)
[2018-03-06] MEDS ORDERED: HEPARIN PF 500 UNIT/5 ML DISP.SYRIN. IV ONE (13:30)
== END 2018-03-06 13:47 | disposition home or self-care (01) | DRG 391 ==
LOC: 6 SOUTH 13:15
PROVIDERS: ADMIT Family Medicine; ATTEND Family Medicine
PROC: 30233N1 Transfusion of Nonautologous Red Blood Cells into Peripheral Vein, Percutaneous Approach (ICD-10-PCS; principal; 2018-03-05)
DX: K20.8 Other esophagitis (principal); D61.810 Antineoplastic chemotherapy induced pancytopenia; C34.92 Malignant neoplasm of unspecified part of left bronchus or lung; E78.5 Hyperlipidemia, unspecified; E87.6 Hypokalemia; E83.42 Hypomagnesemia; F17.200 Nicotine dependence, unspecified, uncomplicated; E83.39 Other disorders of phosphorus metabolism; K22.4 Dyskinesia of esophagus; J44.9 Chronic obstructive pulmonary disease, unspecified; I10 Essential (primary) hypertension; T45.1X5A Adverse effect of antineoplastic and immunosuppressive drugs, initial encounter; Z85.118 Personal history of other malignant neoplasm of bronchus and lung; Z80.0 Family history of malignant neoplasm of digestive organs; Z79.899 Other long term (current) drug therapy; Z88.0 Allergy status to penicillin; Z98.51 Tubal ligation status; Y92.89 Other specified places as the place of occurrence of the external cause
CPT/HCPCS: 36415; 80048; 80053; 83735; 84100; 85007; 85014; 85018; 85025; 86850; 86900; 86901; 86920; J0780; J1442; J2270; J2405; J3475; P9016

== ENCOUNTER → 2018-04-16 | Outpatient (CLI) | payer BC ==
[~2018-04-16] MED LIST changes: +ONDA8TAB9 PO
--- NOTE | 2018-04-16 11:31 | RAD ---
CT of the chest without contrast 04/16/2018 INDICATION: Follow-up lung cancer, left lower lobe, perihilar mass COMPARISON STUDY: CT of the chest with contrast November 13, 2017 TECHNIQUE: Multidetector CT imaging of the chest was performed without the demonstration of contrast. Discussion: There is right internal jugular port with tip at cavoatrial junction. Heart size is normal. There are 2 small pretracheal lymph nodes noted in the superior mediastinum which are smaller than on comparison study. Subcarinal lymphadenopathy is also decreased in the interim. Small prevascular nodes are also slightly decreased in size in the interim. No pericardial effusion is identified. The mass centered in the left lower lobe is again demonstrated. With respect to comparison study the mass has mildly decreased in size measuring 5.0 x 4.0 x 5.2 cm in maximal axial diameter on today's study, previously measuring 5.8 x 4.6 x 6.0 cm. IMPRESSION: 1.Mild decrease in size in the left lower lobe mass in the interim since prior studies described above in detail. 2. Interval decrease in size and multiple mediastinal lymph nodes as described CT DOSING PQRS STATEMENT: One or more of the following individualized dose reduction techniques were utilized for this examination: 1. Automated exposure control 2. Adjustment of the mA and/or kV according to patient size 3. Use of iterative reconstruction technique Electronically signed by: Quan John MD (04/16/2018 11:28 AM) [id number]
== END | disposition home or self-care (01) ==
LOC: CT 10:07
PROVIDERS: ATTEND Internal Medicine Pulmonary Disease
DX: C34.32 Malignant neoplasm of lower lobe, left bronchus or lung (principal); R59.0 Localized enlarged lymph nodes
CPT/HCPCS: 71250

== ENCOUNTER → 2018-07-05 | Outpatient (CLI) | payer BC ==
[~2018-07-05] MED LIST changes: +ALBU2.5V8 INH; +DURV120V IV; +GADOBUTROL 7.5 MMOL/7.5 ML VIAL IV ONE; +HYDR-3164 PO; -HYDR-971 PO; +LOSA-73 PO; -LOSA50TA7 PO; -PROAIR HFA8.5 GM INH; +RANI150T21 PO
--- NOTE | 2018-07-05 12:47 | RAD ---
MRI thoracic and lumbar spine without and with contrast History: Back pain, right hip pain, symptoms for one month, lung cancer Technique: Multiplanar, multi sequential pre and postcontrast MR imaging was performed of the thoracic and lumbar spine. Comparison: None Thoracic spine: Findings: Traversing vertebral body AP alignment is maintained. There is mild superior T3 and T1 endplate concavity without associated marrow edema or osseous retropulsion. No suspicious edematous marrow lesion is identified of the thoracic spine. There is mild amorphous edema and enhancement of the posterior C6-7 endplates, no fluid or enhancement in the intervertebral disc space and likely component of at least mild degenerative disc disease at this level. There is no significant thoracic spinal stenosis or neural foramina compromise at any level. There is no significant focal posterior disc abnormality of the thoracic spine. There is a mass of the posterior left hemithorax. Impression: 1. No suspicious edematous marrow lesion is identified of the thoracic spine. 2. As seen at the superior aspect of exam, there is mild amorphous edema and enhancement of the posterior C6-7 endplates although findings may be reactive/degenerative in etiology given the amorphous appearance. 3. There is a mass of the posterior left hemithorax. Lumbar spine: FINDINGS: Lumbar vertebral body stature and AP alignment are maintained. No suspicious edematous marrow lesion is identified of the lumbar spine. There is no nodular enhancement of the conus or cauda equina. There is mild degenerative disc disease at L2-3, mild mild disc desiccation L5-S1. There is posterior annular tear L5-S1. Conus terminates at L1. L2-3: Neural foramina and spinal canal are adequate. There is mild buckling of the ligamentum flavum. L3-4: Spinal canal and neural foramina are adequate. There is mild buckling of the ligamentum flavum. L4-5: There is mild buckling of the ligamentum flavum. Spinal canal and neural foramina are adequate. L5-S1: There is mild buckling of the ligamentum flavum. There is negligible protrusion in the right paracentral region without neural impingement or significant spinal stenosis. Neural foramina are overall adequate. IMPRESSION: 1. There is no lumbar spinal stenosis. There is mild degenerative disc disease L2-3, mild disc desiccation L5-S1. No suspicious edematous marrow lesion is identified of the lumbar spine. Electronically signed by: Vahid Waddell MD (07/05/2018 12:43 PM) [id number]
== END | disposition home or self-care (01) ==
LOC: MRI 10:15
PROVIDERS: ATTEND Internal Medicine Hematology & Oncology
DX: M51.37 Other intervertebral disc degeneration, lumbosacral region (principal); M25.551 Pain in right hip; C34.32 Malignant neoplasm of lower lobe, left bronchus or lung; R53.83 Other fatigue
CPT/HCPCS: 72157; 72158; A9585

== ENCOUNTER → 2018-08-13 | Outpatient (CLI) | payer BC ==
[~2018-08-13] MED LIST changes: +DULO60CA6 PO; -GADOBUTROL 7.5 MMOL/7.5 ML VIAL IV ONE; +HYDR-2765 PO; +RANI-376 PO; -RANI150T21 PO
--- NOTE | 2018-08-13 15:40 | RAD ---
Whole-body bone scan Clinical indications: Lung cancer. Stage III. TECHNIQUE: After IV infusion of 25.2 mCi of technetium 99m MDP, delayed anterior and posterior planar images of the whole body were performed. COMPARISON: No previous bone scan available. FINDINGS: Bilateral renal function is evident. Mild degenerative activity is seen involving the left sternoclavicular joint. There is mild degenerative activity seen involving both AC joints. There is no pattern of uptake to indicate osseous metastatic disease. IMPRESSION: No osseous metastatic disease is evident. Electronically signed by: Shree Alford MD (08/13/2018 3:37 PM) [facility]
== END | disposition home or self-care (01) ==
LOC: NM 08:55
PROVIDERS: ATTEND Psychiatry & Neurology Neurology with Special Qualifications in Child Neurology
DX: C34.92 Malignant neoplasm of unspecified part of left bronchus or lung (principal); M79.2 Neuralgia and neuritis, unspecified
CPT/HCPCS: 78306; 96374; A9503

== ENCOUNTER 2018-08-18 12:23 | Inpatient (IN) | payer BC ==
[~2018-08-18] VITALS: Ht 165.1 cm; Wt 52.2 kg
[~2018-08-18 12:23] MED LIST changes: -DULO60CA6 PO; -HYDR-2765 PO
[2018-08-18] MEDS ORDERED: IV NORMAL SALINE 1000ML BAG 1,000 ML IV SCH (12:33)
[2018-08-18] MEDS ORDERED: ONDANSETRON PF 4 MG/2 ML VIAL. IV ONE (12:45)
[2018-08-18] MEDS ORDERED: PROCHLORPERAZINE 10 MG/2 ML VIAL. IV ONE (12:45)
--- NOTE | 2018-08-18 12:51 | PHYS DOC ---
Past Medical History Past Medical History: Cancer, Hypertension Past Surgical History: Tonsillectomy, Tubal ligation Adult General Chief Complaint Chief Complaint: NAUSEA/VOMITING/DIARRHA HPI HPI Patient is a 57 year old female with history of lung cancer, finished her chemotherapy treatment, presented to ER today for evaluation of nausea, had no appetite, lower abdominal pain. Patient had not eaten anything since Thursday, last bowel movement was on Thursday as well. Patient had no vomiting, no fever. She denies any chest pain or trouble breathing. Patient feels weak and dehydrated. Review of Systems Review of Systems Constitutional: Denies fever or chills. POSITIVE FOR WEAKNESS. Eyes: Denies change in visual acuity, redness, or eye pain [] HENT: Denies nasal congestion or sore throat [] Respiratory: Denies cough or shortness of breath [] Cardiovascular: No additional information not addressed in HPI [] GI: Positive for abdominal pain, nausea, NO vomiting, bloody stools or diarrhea [] : Denies dysuria or hematuria [] Musculoskeletal: Denies back pain or joint pain [] Integument: Denies rash or skin lesions [] Neurologic: Denies headache, focal weakness or sensory changes [] Endocrine: Denies polyuria or polydipsia [] All other systems were reviewed and found to be within normal limits, except as documented in this note. Current Medications Current Medications Current Medications Medications (Trade) Dose Ordered Sig/Mark Start Time Stop Time Status Last Admin Dose Admin Info (CONTRAST GIVEN -- Rx MONITORING) 1 each PRN DAILY PRN 08/18/18 14:15 08/20/18 14:14 Iohexol (Omnipaque 300 Mg/ml) 75 ml 1X ONCE 08/18/18 14:15 08/18/18 14:16 DC Ondansetron HCl (Zofran) 4 mg 1X ONCE 08/18/18 12:45 08/18/18 12:46 DC 08/18/18 13:39 4 MG Potassium Chloride (Klor-Con) 40 meq 1X ONCE 08/18/18 14:15 08/18/18 14:16 DC Prochlorperazine Edisylate (Compazine) 10 mg 1X ONCE 08/18/18 12:45 08/18/18 12:46 DC 08/18/18 13:38 10 MG Sodium Chloride 1,000 ml @ 1,000 mls/hr Q1H 08/18/18 12:33 08/18/18 13:32 DC 08/18/18 13:38 1,000 MLS/HR Allergies Allergies Allergies Coded Allergies Type Severity Reaction Last Updated Verified Penicillins Allergy Intermediate Hives 11/25/17 Yes Physical Exam Physical Exam Constitutional: Well developed, well nourished, no acute distress, non-toxic appearance. [] HENT: Normocephalic, atraumatic, bilateral external ears normal, oropharynx moist, no oral exudates, nose normal. [] Eyes: PERRLA, EOMI, conjunctiva normal, no discharge. [] Neck: Normal range of motion, no tenderness, supple, no stridor. [] Cardiovascular: Sinus tachycardia, regular rhythm, no murmur [] Lungs & Thorax: Bilateral breath sounds clear to auscultation [] Abdomen: Bowel sounds normal, soft, LUQ AND LLQ tenderness TO PALPATION, no masses, no pulsatile masses. [] Skin: Warm, dry, no erythema, no rash. [] Back: No tenderness, no CVA tenderness. [] Extremities: No tenderness, no cyanosis, no clubbing, ROM intact, no edema. [] Neurologic: Alert and oriented X 3, normal motor function, normal sensory function, no focal deficits noted. [] Psychologic: Affect normal, judgement normal, mood normal. [] Current Patient Data Vital Signs Vital Signs Date Time Temp Pulse Resp B/P (MAP) Pulse Ox O2 Delivery O2 Flow Rate FiO2 08/18/18 12:40 98.9 120 18 135/78 (97) 98 Room Air 98.9 Lab Values Laboratory Tests Test 08/18/18 13:30 White Blood Count 8.5 x10^3/uL (4.0-11.0) Red Blood Count 4.69 x10^6/uL (3.50-5.40) Hemoglobin 14.0 g/dL (12.0-15.5) Hematocrit 41.5 % (36.0-47.0) Mean Corpuscular Volume 88 fL (79-100) Mean Corpuscular Hemoglobin 30 pg (25-35) Mean Corpuscular Hemoglobin Concent 34 g/dL (31-37) Red Cell Distribution Width 14.6 % (11.5-14.5) H Platelet Count 285 x10^3/uL (140-400) Neutrophils (%) (Auto) 74 % (31-73) H Lymphocytes (%) (Auto) 18 % (24-48) L Monocytes (%) (Auto) 7 % (0-9) Eosinophils (%) (Auto) 1 % (0-3) Basophils (%) (Auto) 1 % (0-3) Neutrophils # (Auto) 6.3 x10^3uL (1.8-7.7) Lymphocytes # (Auto) 1.5 x10^3/uL (1.0-4.8) Monocytes # (Auto) 0.6 x10^3/uL (0.0-1.1) Eosinophils # (Auto) 0.1 x10^3/uL (0.0-0.7) Basophils # (Auto) 0.1 x10^3/uL (0.0-0.2) Sodium Level 140 mmol/L (136-145) Potassium Level 2.9 mmol/L (3.5-5.1) *L Chloride Level 102 mmol/L (98-107) Carbon Dioxide Level 25 mmol/L (21-32) Anion Gap 13 (6-14) Blood Urea Nitrogen 18 mg/dL (7-20) Creatinine 0.8 mg/dL (0.6-1.0) Estimated GFR (Cockcroft-Gault) 73.7 BUN/Creatinine Ratio 23 (6-20) H Glucose Level 109 mg/dL (70-99) H Calcium Level 9.4 mg/dL (8.5-10.1) Total Bilirubin 0.7 mg/dL (0.2-1.0) Aspartate Amino Transferase (AST) 10 U/L (15-37) L Alanine Aminotransferase (ALT) 9 U/L (14-59) L Alkaline Phosphatase 95 U/L (46-116) Total Protein 7.4 g/dL (6.4-8.2) Albumin 3.5 g/dL (3.4-5.0) Albumin/Globulin Ratio 0.9 (1.0-1.7) L Lipase 165 U/L (73-393) Laboratory Tests 08/18/18 13:30 Laboratory Tests 08/18/18 13:30 EKG EKG [] Radiology/Procedures Radiology/Procedures [][facility] [address] [place] [address] IMAGING REPORT Signed PATIENT: RITESH HOWARD ACCOUNT: [id number] : 1960 LOCATION: ER AGE: 57 SEX: F EXAM STATUS: REG ER ORD. PHYSICIAN: BENNY ERIC DO REASON: left side abdominal pain PROCEDURE: CT ABD PELV W/ IV CONTRST ONLY PQRS Compliance statement: One or more of the following individualized dose reduction techniques were utilized for this examination: 1. Automated exposure control. 2. Adjustment of the mA and/or kV according to patient size. 3. Use of iterative reconstruction technique. Indication:Nausea vomiting diarrhea. TECHNIQUE: CT abdomen and pelvis with IV contrast with multiplanar reformats. COMPARISON: None FINDINGS: Heart is normal in size. No pericardial or pleural effusion. Mild scarring in the left lower lobe. Liver, spleen, gallbladder, pancreas, adrenals and kidneys within normal limits. No nephrolithiasis or hydronephrosis. No enlarged retroperitoneal or pelvic adenopathy. Severe atherosclerotic plaque is seen in the abdominal aorta and bilateral iliac arteries with more than 70% stenosis in the bilateral common iliac arteries. At least 50% narrowing is seen in the infrarenal aorta secondary to mixed plaque. No free pelvic fluid or ascites. No bowel obstruction. Appendix not visualized. No right lower quadrant inflammatory changes. Anteverted uterus. Urinary bladder demonstrates no radiopaque stone. No pneumoperitoneum. No suspicious bony lesion. IMPRESSION: 1. Severe atherosclerotic disease of the infrarenal aorta and bilateral iliac arteries. 2. No bowel obstruction. No evidence of colitis. Electronically signed by: Dimitris Nguyễn DO (08/18/2018 2:29 PM) [id number] DICTATED and SIGNED BY: DIMITRIS NGUYỄN DO DATE: 08/18/18 1423 Course & Med Decision Making Course & Med Decision Making Pertinent Labs and Imaging studies reviewed. (See chart for details) [] Dragon Disclaimer Dragon Disclaimer This electronic medical record was generated, in whole or in part, using a voice recognition dictation system. Departure Departure Impression: Primary Impression: Dehydration Additional Impressions: Hypokalemia Nausea Lung cancer Disposition: ADMITTED INPATIENT Admitting Physician: Jenny Novoa Condition: IMPROVED Referrals: MANJULA BYRD MD (PCP) Problem Qualifiers BENNY ERIC DO Aug 18, 2018 12:50
[2018-08-18 13:48] LABS: BASO # 0.1 x10^3/uL (0.0-0.2); BASO % 1 % (0-3); EOS # 0.1 x10^3/uL (0.0-0.7); EOS % 1 % (0-3); HEMATOCRIT 41.5 % (36.0-47.0); LYMPH # 1.5 x10^3/uL (1.0-4.8); LYMPH % 18 % (24-48); MEAN CORPUSCULAR HEMOGLOBIN 30 pg (25-35); MEAN CORPUSCULAR HGB CONC 34 g/dL (31-37); MEAN CORPUSCULAR VOLUME 88 fL (79-100); MONO # 0.6 x10^3/uL (0.0-1.1); MONO % 7 % (0-9); NEUT # 6.3 x10^3uL (1.8-7.7); NEUT % 74 % (31-73); PLATELET COUNT 285 x10^3/uL (140-400); RED BLOOD COUNT 4.69 x10^6/uL (3.50-5.40); RED CELL DISTRIBUTION WIDTH 14.6 % (11.5-14.5); WHITE BLOOD COUNT 8.5 x10^3/uL (4.0-11.0)
[2018-08-18 14:03] LABS: ALBUMIN 3.5 g/dL (3.4-5.0); ALBUMIN/GLOBULIN RATIO 0.9 (1.0-1.7); CALCIUM 9.4 mg/dL (8.5-10.1); CREATININE 0.8 mg/dL (0.6-1.0); GFR 73.7; TOTAL BILIRUBIN 0.7 mg/dL (0.2-1.0); TOTAL PROTEIN 7.4 g/dL (6.4-8.2)
[2018-08-18 14:05] LABS: POTASSIUM 2.9 mmol/L (3.5-5.1)
[2018-08-18] MEDS ORDERED: IOHEXOL 300 MG/ML 100ML VIAL. IV ONE (14:15)
[2018-08-18] MEDS ORDERED: CONTRAST GIVEN. MC PRN (14:15)
[2018-08-18] MEDS ORDERED: POTASSIUM CHLORIDE 20 MEQ TABLET.ER. PO ONE (14:15)
--- NOTE | 2018-08-18 14:32 | RAD ---
PQRS Compliance statement: One or more of the following individualized dose reduction techniques were utilized for this examination: 1. Automated exposure control. 2. Adjustment of the mA and/or kV according to patient size. 3. Use of iterative reconstruction technique. Indication:Nausea vomiting diarrhea. TECHNIQUE: CT abdomen and pelvis with IV contrast with multiplanar reformats. COMPARISON: None FINDINGS: Heart is normal in size. No pericardial or pleural effusion. Mild scarring in the left lower lobe. Liver, spleen, gallbladder, pancreas, adrenals and kidneys within normal limits. No nephrolithiasis or hydronephrosis. No enlarged retroperitoneal or pelvic adenopathy. Severe atherosclerotic plaque is seen in the abdominal aorta and bilateral iliac arteries with more than 70% stenosis in the bilateral common iliac arteries. At least 50% narrowing is seen in the infrarenal aorta secondary to mixed plaque. No free pelvic fluid or ascites. No bowel obstruction. Appendix not visualized. No right lower quadrant inflammatory changes. Anteverted uterus. Urinary bladder demonstrates no radiopaque stone. No pneumoperitoneum. No suspicious bony lesion. IMPRESSION: 1. Severe atherosclerotic disease of the infrarenal aorta and bilateral iliac arteries. 2. No bowel obstruction. No evidence of colitis. Electronically signed by: Dimitris Nguyễn DO (08/18/2018 2:29 PM) [id number]
[2018-08-18] MEDS ORDERED: ONDANSETRON PF 4 MG/2 ML VIAL. IV PRN (15:30)
[2018-08-18 15:54] LABS: BILIRUBIN,URINE NEGATIVE (NEG); CLARITY,URINE CLEAR; COLOR,URINE YELLOW; NITRITE,URINE NEGATIVE (NEG); PROTEIN,URINE NEGATIVE (NEG-TRACE); UROBILINOGEN,URINE 0.2 mg/dL (0.2 mg/dL)
[2018-08-18 16:06] LABS: BACTERIA,URINE FEW /HPF (0-FEW); RBC,URINE 0 /HPF (0-2); SQUAMOUS EPITHELIAL CELL,UR OCC /LPF
[2018-08-18] MEDS ORDERED: HYDR-2765 PO (18:57)
[2018-08-18] MEDS ORDERED: DULO60CA6 PO (18:59)
[2018-08-18] MEDS: IV NORMAL SALINE 1000ML BAG 1,000 ML IV SCH (19:33)
[2018-08-18] MEDS: HYDROcodone/APAP 7.5/325MG 1 TAB TABLET PO PRN (19:33)
[2018-08-18] MEDS ORDERED: IOHEXOL 300 MG/ML 100ML VIAL. ONE (19:33)
[2018-08-18 19:40] VITALS: BP 105/52
--- NOTE | 2018-08-18 19:46 | NUR ---
Patient Michaela Herrmann 57/F diagnosed case of Lung Ca, admitted for dehydration and hypokalemia. patient complained of pain in the abdomen and back, 01/22, non radiating. Informed MD, home pain medicine continued; will continue to monitor.
[2018-08-18 23:16] VITALS: BP 112/47
[2018-08-19 03:11] VITALS: BP 100/49
[2018-08-19] MEDS: IV NORMAL SALINE 1000ML BAG 1,000 ML IV SCH ×2 (04:50→06:29)
[2018-08-19] MEDS: HYDROcodone/APAP 7.5/325MG 1 TAB TABLET PO PRN ×2 (06:28→15:14)
[2018-08-19 07:18] VITALS: BP 101/40
--- NOTE | 2018-08-19 07:49 | PDOC1 ---
H & P. HPI: Ms. Herrmann is a 57-year-old female with past mental history of non-small cell lung cancer of the left lung, COPD, history of nicotine dependence, hypertension , hyperlipidemia, chronic pain, who presented to the emergency room yesterday for intractable nausea for the last few days. She notes that she hasn't eaten anything since Thursday. She feels weak and felt lightheaded and as if she would pass out yesterday when standing. Labs in the emergency room were significant for hypokalemia at 2.9, but were otherwise unremarkable. CT abdomen and pelvis was performed and found no palpable obstruction or explanation for intractable nausea and vomiting, though was significant for severe atherosclerosis of the infrarenal aorta. She was given 40 meq potassium PO in the emergency room and admitted for further management. ROS: Constitutional: Denies fever, chills; admits fatigue, weakness HEENT: Denies sore throat, vision changes Cardio: Denies chest pain, dyspnea with exertion, syncope, palpitations, edema Pulmonary: Denies shortness of breath, cough, wheezing GI: Admits nausea, chronic abdominal pain; denies vomiting, diarrhea, constipation : Denies dysuria, frequency, urgency, incontinence Skin: Denies new lesions Neuro: Denies paresthesias PMH: As above FAMILY HX: Noncontributory. SOCIAL HX: Tobacco use x approximately 40 pack years. No significant alcohol use or recreational drug use. SURGICAL HX: Tonsillectomy, tubal ligation. MEDS: Reviewed and reconciled ALLERGIES: Reviewed PE: Alert, oriented, no acute distress EOMI, sclera non-icteric Neck supple RRR, no murmur CTAB, no wheezes, crackles or rhonchi Soft, ND, mildly tender in the left upper quadrant, normal bowel sounds, no rebound, guarding. No edema, cyanosis. Normal capillary refill. Calm, cooperative, mood/affect within normal limits ASSESSMENT & PLAN: Intractable nausea, weakness, likely orthostatic hypotension Hypokalemia, uncertain etiology Non-small cell lung cancer COPD Nicotine dependence Hypertension Hyperlipidemia Chronic pain Repeat labs and replace potassium as necessary Continue IV fluids Zofran as needed for nausea Pain control as needed Possible dc later today pending clinical improvement and K+ level BLANCA HARRISON MD Aug 19, 2018 07:49
[2018-08-19] MEDS ORDERED: DULoxetine HCL 30 MG CAPSULE.DR PO SCH (09:00)
[2018-08-19] MEDS ORDERED: FAMOTIDINE 20 MG TABLET. PO SCH (09:00)
[2018-08-19 10:14] LABS: CALCIUM 8.7 mg/dL (8.5-10.1); CREATININE 0.7 mg/dL (0.6-1.0); GFR 85.9; POTASSIUM 3.7 mmol/L (3.5-5.1)
[2018-08-19 11:15] VITALS: BP 93/56
[2018-08-19 15:15] VITALS: BP 124/57
--- NOTE | 2018-08-19 17:51 | NUR ---
Pt was discharged with instructions, follow up info, and teaching. Pt will follow up with Dr. Novoa next week, and repeat labs. Pt will continue home meds. Iv removed. Tele removed. All belongings left with pt at time of discharge. Discharge explained to patient and . Pt was taken via wheelchair to vehicle by this RN. Pt left at 1745. Stable. Alertx4. Returning home with self care.
--- NOTE | 2018-08-19 23:38 | CONS ---
DATE OF CONSULTATION: 08/19/2018 REQUESTING PHYSICIAN: Dr. Jenny Novoa. REASON FOR CONSULTATION: Lung cancer, stage 3, now admitted for nausea, vomiting. HISTORY OF PRESENT ILLNESS: The patient is a 57-year-old female who was diagnosed with adenocarcinoma of the left lower lobe of the lung by a CT-guided biopsy on 12/18/2017. PET scan revealed a 6.3 cm mass in the left lower lobe with subcarinal and right paratracheal lymphadenopathy and right paraesophageal lymphadenopathy consistent with T3 N3 M0, stage 3C lung cancer. She received chemotherapy with cisplatin and etoposide along with radiation therapy from 01/19/2018. She completed cycle #2, day #8 of cisplatin on 03/19/2018 and she completed radiation therapy on 03/30/2018. She was started on consolidation treatment with durvalumab on 04/30/2018. She received cycle #5 on 08/06/2018. She is tolerating the treatments very well. She was admitted to [facility] on 08/18/2018 with complaints of nausea and vomiting of 4 days' duration. It got progressively worse and hence she came into the Emergency Room and she was subsequently admitted. Her potassium was only 2.9. She underwent a CT scan of the abdomen and pelvis on 08/18/2018 that did not reveal any evidence of bowel obstruction and there was no evidence of colitis. PAST MEDICAL HISTORY: Hypertension. FAMILY HISTORY: Father had colon cancer. SOCIAL HISTORY: She has a [id number] smoking history. REVIEW OF SYSTEMS: A 12-point review of system was performed. Pertinent positives are mentioned in the history of present illness. Rest of the system review is negative. PHYSICAL EXAMINATION: GENERAL APPEARANCE: The patient is a 57-year-old female who is in no acute cardiorespiratory distress. VITAL SIGNS: Blood pressure 101/40, temperature 98.5. HEENT: Head: Atraumatic, normocephalic. Eyes: No icterus. NECK: Supple. CHEST: Bilaterally symmetrical. HEART: S1, S2 normal. ABDOMEN: Soft, nontender. CENTRAL NERVOUS SYSTEM: No focal deficits. LYMPHATICS: No lymphadenopathy. SKIN: No rashes. PSYCHOLOGIC: Mood and affect are appropriate. LABORATORY DATA: WBC 8.5, hemoglobin 14, platelet count 285, creatinine 0.7. IMPRESSION AND PLAN: 1. Stage 3C adenocarcinoma of the left lower lobe of the lung T3 N3 M0 diagnosed on 12/18/2017. She has undergone concurrent chemoradiation therapy with cisplatin and etoposide and she was then started on consolidation treatment with durvalumab. She completed chemotherapy on 03/19/2018. Durvalumab was started on 04/30/2018. She received cycle #5 on 08/06/2018. I will defer cycle #6 due to current hospitalization. I have advised her to follow up with me next week for continued treatment. I also mentioned to her that the current episode of nausea, vomiting is not related to durvalumab, but I will continue to monitor. 2. Nausea, vomiting. CT scan is negative. I appreciate evaluation by Dr. Jenny Novoa. Continue supportive care. 3. Anemia. Monitor. 4. Neuropathic pain. Appreciate consultation by Neurology and she was started on duloxetine as an outpatient. CAROL HIGGINS MD DR: RUPERTO/nts JOB#: [id number] / [id number] JT
== END 2018-08-19 17:45 | disposition home or self-care (01) | DRG 641 ==
LOC: ER 12:23 → 6 SOUTH 12:55 → OBSVTOIN 15:23
PROVIDERS: ADMIT Family Medicine; ATTEND Family Medicine
DX: E86.0 Dehydration (principal); C34.32 Malignant neoplasm of lower lobe, left bronchus or lung; I95.1 Orthostatic hypotension; E87.6 Hypokalemia; I10 Essential (primary) hypertension; J44.9 Chronic obstructive pulmonary disease, unspecified; E78.5 Hyperlipidemia, unspecified; G89.29 Other chronic pain; D64.9 Anemia, unspecified; Z98.51 Tubal ligation status; Z88.0 Allergy status to penicillin; Z87.891 Personal history of nicotine dependence; Z92.3 Personal history of irradiation; Z80.0 Family history of malignant neoplasm of digestive organs
CPT/HCPCS: 36415; 74177; 80048; 80053; 81001; 83690; 85025; 87086; 96361; 96374; 96375; G0378; G0379; J0780; J2405; J7030; 99285-25

== ENCOUNTER → 2018-08-24 | Outpatient (CLI) | payer BC ==
[2018-08-19 15:15] VITALS: BP 124/57
[~2018-08-24] MED LIST changes: +DULO60CA6 PO; +HYDR-2765 PO
--- NOTE | 2018-08-24 14:47 | RAD ---
EXAM: Left shoulder, 3 views. HISTORY: Pain. COMPARISON: None. FINDINGS: 3 views of left shoulder obtained. There is no fracture, dislocation or subluxation. There is a calcified granuloma within the left upper lobe. There is a right chest wall port catheter overlying the superior vena cava. IMPRESSION: No acute osseous finding. Electronically signed by: Hilda Stanley MD (08/24/2018 2:44 PM) [email or web address]
== END | disposition home or self-care (01) ==
LOC: RAD 13:27
PROVIDERS: ATTEND Psychiatry & Neurology Neurology with Special Qualifications in Child Neurology
DX: M25.512 Pain in left shoulder (principal); J84.10 Pulmonary fibrosis, unspecified
CPT/HCPCS: 73030

== ENCOUNTER → 2018-09-24 | Outpatient (CLI) | payer BC ==
[~2018-09-24] MED LIST changes: +CONTRAST GIVEN. MC PRN; +IOHEXOL 300 MG/ML 100ML VIAL. IV ONE
--- NOTE | 2018-09-25 12:44 | RAD ---
CT chest with contrast. HISTORY: Lung cancer CT scan of the chest was done using 75 mL Omnipaque 300 contrast. Thyroid is homogeneous. Mediastinal lymph nodes are not enlarged. There is no pleural effusion. Visualized portions of liver and spleen are unremarkable. Adrenal glands are normal. Upper aspect of the kidneys are normal. Pancreas is unremarkable. There is atherosclerotic change in the aorta. There is a left lower lobe mass measuring 4.2 x 4.2 cm on image #36 of series 2 slight interval decrease in size compared to the study of April 16. There is mild linear scarring or atelectasis in the left lower lobe. A new pulmonary nodule or mass is not identified. A bony destructive process is not identified. IMPRESSION: 1. Persistent left lower lobe mass with mild further decrease in size. 2. No mediastinal adenopathy. 3. No new infiltrates or nodules noted. Electronically signed by: Tino Ball MD (09/25/2018 12:41 PM) [facility]
== END | disposition home or self-care (01) ==
LOC: CT 12:57
PROVIDERS: ATTEND Internal Medicine Hematology & Oncology
DX: C34.32 Malignant neoplasm of lower lobe, left bronchus or lung (principal); I70.0 Atherosclerosis of aorta; Z87.891 Personal history of nicotine dependence
CPT/HCPCS: 71260; Q9967

== ENCOUNTER → 2019-03-21 | Outpatient (CLI) | payer BC ==
[~2019-03-21] MED LIST changes: -ACLI400A2 IH; +ACLI400A3 IH; -CONTRAST GIVEN. MC PRN
--- NOTE | 2019-03-21 16:37 | RAD ---
CT of the chest with contrast 03/21/2019 INDICATION: Follow-up lung cancer. COMPARISON STUDY: CT chest September 24, 2018 TECHNIQUE: Multidetector CT imaging of the chest was performed following the administration of contrast. FINDINGS: Heart size remains normal. No pericardial effusion is identified. No new mediastinal adenopathy is seen. Allowing for differences in slice selection and technique, the left or lower lobe lung mass is unchanged in size and configuration. No new masses or nodules are identified. No acute consolidation, pneumothorax, or effusion is seen. Limited visualization of the upper abdomen is unremarkable. Osseous structures are unremarkable. IMPRESSION: Grossly stable appearance of left lower lobe lung mass with respect to comparison exam. CT DOSING PQRS STATEMENT: One or more of the following individualized dose reduction techniques were utilized for this examination: 1. Automated exposure control 2. Adjustment of the mA and/or kV according to patient size 3. Use of iterative reconstruction technique Electronically signed by: Quan John MD (03/21/2019 4:33 PM) [id number]
== END | disposition home or self-care (01) ==
LOC: CT 14:47
PROVIDERS: ATTEND Internal Medicine Hematology & Oncology
DX: C34.32 Malignant neoplasm of lower lobe, left bronchus or lung (principal); J44.9 Chronic obstructive pulmonary disease, unspecified; I10 Essential (primary) hypertension; Z98.51 Tubal ligation status
CPT/HCPCS: 71260; Q9967

== ENCOUNTER 2019-06-30 17:59 | Inpatient (IN) | payer BC ==
[~2019-06-30] VITALS: Ht 165.1 cm; Wt 49.9 kg
[~2019-06-30 17:59] MED LIST changes: -IOHEXOL 300 MG/ML 100ML VIAL. IV ONE
[2019-06-30 18:25] VITALS: BP 111/75
[2019-06-30] MEDS ORDERED: HYDROcodone/APAP 7.5/325MG 1 TAB TABLET PO PRN (18:45)
[2019-06-30] MEDS ORDERED: ONDANSETRON ODT 4 MG TAB.RAPDIS. PO PRN (18:45)
[2019-06-30] MEDS ORDERED: ONDANSETRON PF 4 MG/2 ML VIAL. IVP PRN (18:45)
[2019-06-30] MEDS ORDERED: ACETAMINOPHEN 500 MG TABLET PO PRN ×2 (18:45)
[2019-06-30 19:00] VITALS: BP 99/65
[2019-06-30] MEDS ORDERED: IV NORMAL SALINE 1000ML BAG 1,000 ML IV ONE (19:30)
[2019-06-30] MEDS: HYDROcodone/APAP 7.5/325MG 1 TAB TABLET PO PRN (20:12)
[2019-06-30] MEDS ORDERED: guaiFENesin ORAL 200 MG/10 ML LIQUID. PO PRN (21:00)
[2019-06-30] MEDS: BENZONATATE 100 MG CAPSULE. PO SCH (21:13)
[2019-06-30 22:25] LABS: BASO % 1 % (0-3); EOS % 0 % (0-3); HEMATOCRIT 34.4 % (36.0-47.0); HEMOGLOBIN 11.7 g/dL (12.0-15.5); LYMPH # 1.6 x10^3/uL (1.0-4.8); LYMPH % 28 % (24-48); MEAN CORPUSCULAR HEMOGLOBIN 32 pg (25-35); MEAN CORPUSCULAR HGB CONC 34 g/dL (31-37); MEAN CORPUSCULAR VOLUME 93 fL (79-100); MONO # 0.8 x10^3/uL (0.0-1.1); MONO % 13 % (0-9); NEUT # 3.3 x10^3/uL (1.8-7.7); NEUT % 57 % (31-73); PLATELET COUNT 147 x10^3/uL (140-400); RED BLOOD COUNT 3.68 x10^6/uL (3.50-5.40); WHITE BLOOD COUNT 5.7 x10^3/uL (4.0-11.0)
[2019-06-30 22:41] LABS: ALK PHOS 85 U/L (46-116); ANION GAP 7 (6-14); AST (SGOT) 16 U/L (15-37); BLOOD UREA NITROGEN 14 mg/dL (7-20); BUN/CREATININE RATIO 16 (6-20); CARBON DIOXIDE 29 mmol/L (21-32); CHLORIDE 103 mmol/L (98-107); CREATININE 0.9 mg/dL (0.6-1.0); GFR 64.1; GLUCOSE 111 mg/dL (70-99); POTASSIUM 3.1 mmol/L (3.5-5.1); SODIUM 139 mmol/L (136-145); TOTAL BILIRUBIN 0.2 mg/dL (0.2-1.0); TOTAL PROTEIN 6.1 g/dL (6.4-8.2)
[2019-06-30 22:45] LABS: ALT (SGPT) < 6 U/L (14-59)
--- NOTE | 2019-06-30 22:48 | PDOC1 ---
H & P. HPI: Ms. Herrmann is a 58 yo female with PMH of non-squamous cell lung cancer who is currently on chemo, COPD, nicotine dependence, back pain, HLD, anxiety, who was admitted directly from clinic for 4 day history of fever up to 100.4, productive cough, chest congestion, headache (which started on 06/24/19), chills, fatigue, malaise, body aches and nausea/vomiting. She was evaluated in clinic and had a negative rapid flu swab. Given that she had a round of chemo on 06/24/19, she was admitted for further evaluation and management. ROS: Gen: Decreased appetite, chills, fatigue, fever, headache HEENT: nasal congestion, runny nose, sore throat Chest: Cough, some shortness of breath, some wheezing Heart: Denies chest pain, palpitations GI: Nausea, vomiting, decreased appetite, denies diarrhea, constipation, abdominal pain : Denies dysuria, frequency Neuro: Denies confusion, change in balance, weakness PMH: As above FAMILY HX: Noncontributory SOCIAL HX: care home smoker, no significant alcohol or drug use SURGICAL HX: Tonsillectomy, tubal ligation MEDS: Reviewed and reconciled ALLERGIES: Reviewed PE: Alert, oriented, ill appearing Neck supple, no nuchal rigidity PERRL, TMs wnl, pale swollen turbinates Tachycardic, no murmur, normal rhythm Decreased to auscultation bilaterally, no wheezes, rales appreciated No edema in b/l LEs ASSESSMENT & PLAN: Flu-like illness, neg flu swab in clinic COPD w/ mild exacerbation NSC lung cancer, recent chemotherapy Cancer related back pain HLD Nicotine dependence Get labs, cultures, CXR, give 1L NS bolus Consult BLANCA Santamaria MD Jun 30, 2019 22:48
[2019-06-30 23:00] VITALS: BP 124/76
[2019-06-30] MEDS ORDERED: DULO30CA2 PO (23:22)
[2019-06-30] MEDS ORDERED: POTA20TA4 PO (23:22)
[2019-06-30] MEDS ORDERED: DULO60CA6 PO (23:22)
[2019-06-30] MEDS ORDERED: ACLI400A3 IH (23:22)
[2019-06-30] MEDS ORDERED: ALBU2.5V8 IH (23:22)
[2019-06-30] MEDS ORDERED: ASPI-630 PO (23:22)
[2019-06-30] MEDS ORDERED: ALBUTEROL SULFATE 2.5 MG/3 ML NEBU. INH PRN (23:30)
[2019-07-01] LABS: BILIRUBIN,URINE NEGATIVE (NEG); CLARITY,URINE CLOUDY; COLOR,URINE YELLOW; NITRITE,URINE NEGATIVE (NEG); PROTEIN,URINE NEGATIVE (NEG-TRACE); UROBILINOGEN,URINE 0.2 mg/dL (0.2 mg/dL)
[2019-07-01 00:08] LABS: BACTERIA,URINE MODERATE /HPF (0-FEW); RBC,URINE 0 /HPF (0-2); SQUAMOUS EPITHELIAL CELL,UR MOD /LPF
[2019-07-01 00:09] LABS: HYALINE CASTS, URINE MODERATE /HPF
[2019-07-01] MEDS: HYDROcodone/APAP 7.5/325MG 1 TAB TABLET PO PRN ×2 (02:30→15:10)
[2019-07-01 03:00] VITALS: BP 121/74
[2019-07-01 07:00] VITALS: BP 125/49
[2019-07-01] MEDS ORDERED: IPRATRPIUM/ALBUTEROL 0.5/2.5MG 3 ML NEBU. NEB SCH (08:00)
[2019-07-01] MEDS: BENZONATATE 100 MG CAPSULE. PO SCH ×2 (08:06→13:52)
[2019-07-01] MEDS ORDERED: POTASSIUM CHLORIDE 20 MEQ TABLET.ER. PO ONE (09:00)
[2019-07-01] MEDS ORDERED: POTASSIUM CHLORIDE 20 MEQ TABLET.ER. PO SCH (09:00)
[2019-07-01] MEDS ORDERED: DULoxetine HCL 30 MG CAPSULE.DR PO SCH (09:00)
[2019-07-01] MEDS ORDERED: NON FORMULARY ITEM (Duloxetine Hcl (Cymbalta) 1 CAP) PO SCH (09:00)
[2019-07-01] MEDS ORDERED: ONDANSETRON ODT 4 MG TAB.RAPDIS. PO PRN (09:00)
--- NOTE | 2019-07-01 09:02 | PDOC ---
SUBJECTIVE Subjective Pt is feeling some better today. Headache resolved. Cough is adequately co ntrolled. Denies shortness of breath. OBJECTIVE Objective Reviewed. Vital Signs Vital Signs Date Time Temp Pulse Resp B/P (MAP) Pulse Ox O2 Delivery O2 Flow Rate FiO2 07/01/19 08:15 Room Air 07/01/19 07:56 96 Room Air 07/01/19 07:00 97.9 81 16 125/49 (74) 97 Room Air 97.9 07/01/19 03:37 Room Air 07/01/19 03:00 98.1 95 18 121/74 (90) 98 98.1 07/01/19 02:30 Room Air 06/30/19 23:00 98.7 104 18 124/76 (92) 95 98.7 06/30/19 21:46 Room Air 06/30/19 21:21 Room Air 06/30/19 20:12 Room Air 06/30/19 19:00 98.0 118 18 99/65 (76) 96 98.0 06/30/19 18:25 97.7 96 16 111/75 (87) 96 97.7 I & O Intake and Output 07/01/19 07:00 Intake Total 240 ml Output Total 200 ml Balance 40 ml Intake Oral 240 ml Output Urine Total 200 ml # Voids 2 PHYSICAL EXAM Physical Exam Alert, oriented Neck supple, no nuchal rigidity Mildly tachycardic, no murmur, normal rhythm Decreased to auscultation bilaterally, no wheezes, rales appreciated No edema in b/l LEs ASSESSMENT/PLAN Assessment/Plan Flu-like illness, neg flu swab in clinic, improving COPD w/ mild exacerbation NSC lung cancer, recent chemotherapy Cancer related back pain HLD Nicotine dependence Supportive care Consulted Dr. Pickard Repeat 1L NS bolus, replace KCl. If feeling well enough, may be able to dc tonight, otherwise, likely tomorrow. COMMENT Lab Laboratory Tests Test 06/30/19 22:20 06/30/19 23:55 White Blood Count 5.7 x10^3/uL (4.0-11.0) Red Blood Count 3.68 x10^6/uL (3.50-5.40) Hemoglobin 11.7 g/dL (12.0-15.5) Hematocrit 34.4 % (36.0-47.0) Mean Corpuscular Volume 93 fL (79-100) Mean Corpuscular Hemoglobin 32 pg (25-35) Mean Corpuscular Hemoglobin Concent 34 g/dL (31-37) Red Cell Distribution Width 14.0 % (11.5-14.5) Platelet Count 147 x10^3/uL (140-400) Neutrophils (%) (Auto) 57 % (31-73) Lymphocytes (%) (Auto) 28 % (24-48) Monocytes (%) (Auto) 13 % (0-9) Eosinophils (%) (Auto) 0 % (0-3) Basophils (%) (Auto) 1 % (0-3) Neutrophils # (Auto) 3.3 x10^3/uL (1.8-7.7) Lymphocytes # (Auto) 1.6 x10^3/uL (1.0-4.8) Monocytes # (Auto) 0.8 x10^3/uL (0.0-1.1) Eosinophils # (Auto) 0.0 x10^3/uL (0.0-0.7) Basophils # (Auto) 0.0 x10^3/uL (0.0-0.2) Erythrocyte Sedimentation Rate 25 (0-25) Sodium Level 139 mmol/L (136-145) Potassium Level 3.1 mmol/L (3.5-5.1) Chloride Level 103 mmol/L (98-107) Carbon Dioxide Level 29 mmol/L (21-32) Anion Gap 7 (6-14) Blood Urea Nitrogen 14 mg/dL (7-20) Creatinine 0.9 mg/dL (0.6-1.0) Estimated GFR (Cockcroft-Gault) 64.1 BUN/Creatinine Ratio 16 (6-20) Glucose Level 111 mg/dL (70-99) Calcium Level 8.0 mg/dL (8.5-10.1) Total Bilirubin 0.2 mg/dL (0.2-1.0) Aspartate Amino Transf (AST/SGOT) 16 U/L (15-37) Alanine Aminotransferase (ALT/SGPT) < 6 U/L (14-59) Alkaline Phosphatase 85 U/L (46-116) Total Protein 6.1 g/dL (6.4-8.2) Albumin 3.0 g/dL (3.4-5.0) Albumin/Globulin Ratio 1.0 (1.0-1.7) Procalcitonin 0.57 ng/mL (0.00-0.10) Urine Collection Type Unknown Urine Color Yellow Urine Clarity Cloudy Urine pH 6.0 Urine Specific [place] 1.010 Urine Protein Negative mg/dL (NEG-TRACE) Urine Glucose (UA) Negative mg/dL (NEG) Urine Ketones (Stick) Negative mg/dL (NEG) Urine Blood Negative (NEG) Urine Nitrite Negative (NEG) Urine Bilirubin Negative (NEG) Urine Urobilinogen Dipstick 0.2 mg/dL (0.2 mg/dL) Urine Leukocyte Esterase Negative (NEG) Urine RBC 0 /HPF (0-2) Urine WBC 1-4 /HPF (0-4) Urine Squamous Epithelial Cells Mod /LPF Urine Bacteria Moderate /HPF (0-FEW) Urine Hyaline Casts Moderate /HPF Urine Mucus Slight /LPF BLANCA HARRISON MD Jul 01, 2019 09:02
[2019-07-01] MEDS ORDERED: IV NORMAL SALINE 1000ML BAG 1,000 ML IV ONE (09:30)
--- NOTE | 2019-07-01 10:13 | RAD ---
EXAM: CHEST PA LATERAL INDICATION: Cough fever. Patient on chemotherapy.. TECHNIQUE: PA and lateral views COMPARISON: Chest x-ray of 12/18/[address] of 03/21/2019. FINDINGS: Right jugular approach tunneled chest port is present with the tip near the cavoatrial junction in the distal SVC. The heart size is normal. The great vessels appear unremarkable. There is no hilar or mediastinal mass. Compared with the 2 prior examinations, the patient's posterior left lower lobe pulmonary mass abutting the hilum has decreased in size from a radiographic craniocaudal height of 7.3 cm on the prior chest x-ray to 5.1 cm currently.. There are a few calcified granulomas in the left upper lung. The lungs otherwise are clear. No new infiltrates. There is no pleural effusion or pneumothorax. There are no significant osseous abnormalities. IMPRESSION: Interval decrease in size of a left lower lobe pulmonary mass with no superimposed acute cardiopulmonary process. Electronically signed by: Louis Roque MD (07/01/2019 10:10 AM) [facility]
[2019-07-01 11:00] VITALS: BP 106/57
[2019-07-01] MEDS ORDERED: BENZ-8 PO (14:03)
--- NOTE | 2019-07-01 14:07 | PDOC3 ---
Discharge Summary Date of Admission: Jun 30, 2019 Date of Discharge: Jul 01, 2019 Follow-Up: 3-5 days Admitting Diagnosis comment: Flu-like illness Nausea, vomiting Headache FINAL DIAGNOSIS Flu-like illness Brief Hospital Course Ms. Herrmann is a 58 year old female with PMH of non-squamous cell lung cancer who is currently on chemo (last treatment 06/24/19), COPD, nicotine dependence, back pain, HLD, anxiety, who was admitted directly from clinic for 4 day history of fever up to 100.4, productive cough, chest congestion, headache (which started on 06/24/19), chills, fatigue, malaise, body aches and nausea/vomiting. She was evaluated in clinic and had a negative rapid flu swab. Given that she had a round of chemo on 06/24/19, she was admitted for further evaluation and management. Her labs were remarkable only for mild anemia and hypokalemia. She improved with IV fluid hydration. She felt well enough to discharge home on 07/01/19. No home medications with change. She will follow up with Dr. Pickard to discuss timing of her last chemotherapy treatment. CONDITION AT DISCHARGE: Improved Discharge Medications Reported Tudorza Pressair (Aclidinium [place]) 400 Mcg Aer.pow.ba 1 Puff IH DAILY Proair Hfa Inhaler (Albuterol Sulfate) 8.5 Gm Hfa.aer.ad 2 Puff IH PRN Q4-6HRS PRN 21 Days Cymbalta (Duloxetine Hcl) 60 Mg Capsule.dr 1 Cap PO DAILY Cymbalta (Duloxetine Hcl) 30 Mg Capsule.dr 1 Cap PO DAILY Aspirin 81 Mg Tab.chew 1 Tab PO QODAY Klor-Con M20 (Potassium Chloride) 20 Meq Tab.er.prt 1 Tab PO DAILY 30 Days Hydrocodone-Apap 7.5-325 (Hydrocodone Bit/Acetaminophen) 1 Tab Tablet 1 Tab PO PRN Q6HRS PRN Imfinzi (Durvalumab) 120 Mg/2.4 Ml Vial 120 Mg IV Q2WKS PER PROTOCOL Zofran (Ondansetron Hcl) 8 Mg Tablet 1 Tab PO PRN Q8HRS Vital Signs Vital Signs Date Time Temp Pulse Resp B/P (MAP) Pulse Ox O2 Delivery O2 Flow Rate FiO2 07/01/19 11:00 98.3 95 14 106/57 (73) 96 Room Air 98.3 Labs Laboratory Tests Test 06/30/19 22:20 06/30/19 23:55 White Blood Count 5.7 x10^3/uL (4.0-11.0) Red Blood Count 3.68 x10^6/uL (3.50-5.40) Hemoglobin 11.7 g/dL (12.0-15.5) Hematocrit 34.4 % (36.0-47.0) Mean Corpuscular Volume 93 fL (79-100) Mean Corpuscular Hemoglobin 32 pg (25-35) Mean Corpuscular Hemoglobin Concent 34 g/dL (31-37) Red Cell Distribution Width 14.0 % (11.5-14.5) Platelet Count 147 x10^3/uL (140-400) Neutrophils (%) (Auto) 57 % (31-73) Lymphocytes (%) (Auto) 28 % (24-48) Monocytes (%) (Auto) 13 % (0-9) Eosinophils (%) (Auto) 0 % (0-3) Basophils (%) (Auto) 1 % (0-3) Neutrophils # (Auto) 3.3 x10^3/uL (1.8-7.7) Lymphocytes # (Auto) 1.6 x10^3/uL (1.0-4.8) Monocytes # (Auto) 0.8 x10^3/uL (0.0-1.1) Eosinophils # (Auto) 0.0 x10^3/uL (0.0-0.7) Basophils # (Auto) 0.0 x10^3/uL (0.0-0.2) Erythrocyte Sedimentation Rate 25 (0-25) Sodium Level 139 mmol/L (136-145) Potassium Level 3.1 mmol/L (3.5-5.1) Chloride Level 103 mmol/L (98-107) Carbon Dioxide Level 29 mmol/L (21-32) Anion Gap 7 (6-14) Blood Urea Nitrogen 14 mg/dL (7-20) Creatinine 0.9 mg/dL (0.6-1.0) Estimated GFR (Cockcroft-Gault) 64.1 BUN/Creatinine Ratio 16 (6-20) Glucose Level 111 mg/dL (70-99) Calcium Level 8.0 mg/dL (8.5-10.1) Total Bilirubin 0.2 mg/dL (0.2-1.0) Aspartate Amino Transf (AST/SGOT) 16 U/L (15-37) Alanine Aminotransferase (ALT/SGPT) < 6 U/L (14-59) Alkaline Phosphatase 85 U/L (46-116) Total Protein 6.1 g/dL (6.4-8.2) Albumin 3.0 g/dL (3.4-5.0) Albumin/Globulin Ratio 1.0 (1.0-1.7) Procalcitonin 0.57 ng/mL (0.00-0.10) Urine Collection Type Unknown Urine Color Yellow Urine Clarity Cloudy Urine pH 6.0 Urine Specific [place] 1.010 Urine Protein Negative mg/dL (NEG-TRACE) Urine Glucose (UA) Negative mg/dL (NEG) Urine Ketones (Stick) Negative mg/dL (NEG) Urine Blood Negative (NEG) Urine Nitrite Negative (NEG) Urine Bilirubin Negative (NEG) Urine Urobilinogen Dipstick 0.2 mg/dL (0.2 mg/dL) Urine Leukocyte Esterase Negative (NEG) Urine RBC 0 /HPF (0-2) Urine WBC 1-4 /HPF (0-4) Urine Squamous Epithelial Cells Mod /LPF Urine Bacteria Moderate /HPF (0-FEW) Urine Hyaline Casts Moderate /HPF Urine Mucus Slight /LPF Laboratory Tests Test 06/30/19 22:20 06/30/19 23:55 White Blood Count 5.7 x10^3/uL (4.0-11.0) Red Blood Count 3.68 x10^6/uL (3.50-5.40) Hemoglobin 11.7 g/dL (12.0-15.5) Hematocrit 34.4 % (36.0-47.0) Mean Corpuscular Volume 93 fL (79-100) Mean Corpuscular Hemoglobin 32 pg (25-35) Mean Corpuscular Hemoglobin Concent 34 g/dL (31-37) Red Cell Distribution Width 14.0 % (11.5-14.5) Platelet Count 147 x10^3/uL (140-400) Neutrophils (%) (Auto) 57 % (31-73) Lymphocytes (%) (Auto) 28 % (24-48) Monocytes (%) (Auto) 13 % (0-9) Eosinophils (%) (Auto) 0 % (0-3) Basophils (%) (Auto) 1 % (0-3) Neutrophils # (Auto) 3.3 x10^3/uL (1.8-7.7) Lymphocytes # (Auto) 1.6 x10^3/uL (1.0-4.8) Monocytes # (Auto) 0.8 x10^3/uL (0.0-1.1) Eosinophils # (Auto) 0.0 x10^3/uL (0.0-0.7) Basophils # (Auto) 0.0 x10^3/uL (0.0-0.2) Erythrocyte Sedimentation Rate 25 (0-25) Sodium Level 139 mmol/L (136-145) Potassium Level 3.1 mmol/L (3.5-5.1) Chloride Level 103 mmol/L (98-107) Carbon Dioxide Level 29 mmol/L (21-32) Anion Gap 7 (6-14) Blood Urea Nitrogen 14 mg/dL (7-20) Creatinine 0.9 mg/dL (0.6-1.0) Estimated GFR (Cockcroft-Gault) 64.1 BUN/Creatinine Ratio 16 (6-20) Glucose Level 111 mg/dL (70-99) Calcium Level 8.0 mg/dL (8.5-10.1) Total Bilirubin 0.2 mg/dL (0.2-1.0) Aspartate Amino Transf (AST/SGOT) 16 U/L (15-37) Alanine Aminotransferase (ALT/SGPT) < 6 U/L (14-59) Alkaline Phosphatase 85 U/L (46-116) Total Protein 6.1 g/dL (6.4-8.2) Albumin 3.0 g/dL (3.4-5.0) Albumin/Globulin Ratio 1.0 (1.0-1.7) Procalcitonin 0.57 ng/mL (0.00-0.10) Urine Collection Type Unknown Urine Color Yellow Urine Clarity Cloudy Urine pH 6.0 Urine Specific [place] 1.010 Urine Protein Negative mg/dL (NEG-TRACE) Urine Glucose (UA) Negative mg/dL (NEG) Urine Ketones (Stick) Negative mg/dL (NEG) Urine Blood Negative (NEG) Urine Nitrite Negative (NEG) Urine Bilirubin Negative (NEG) Urine Urobilinogen Dipstick 0.2 mg/dL (0.2 mg/dL) Urine Leukocyte Esterase Negative (NEG) Urine RBC 0 /HPF (0-2) Urine WBC 1-4 /HPF (0-4) Urine Squamous Epithelial Cells Mod /LPF Urine Bacteria Moderate /HPF (0-FEW) Urine Hyaline Casts Moderate /HPF Urine Mucus Slight /LPF Allergies Allergies Coded Allergies Type Severity Reaction Last Updated Verified Penicillins Allergy Intermediate Hives 11/25/17 Yes Disposition/Orders: D/C to Home BLANCA HARRISON MD Jul 01, 2019 14:07
[2019-07-01] MEDS ORDERED: HEPARIN PF 500 UNIT/5 ML DISP.SYRIN. IVP ONE (15:00)
--- NOTE | 2019-07-01 23:58 | CONS ---
DATE OF CONSULTATION: 07/01/2019 REQUESTING PHYSICIAN: Jenny Novoa MD REASON FOR CONSULTATION: Lung cancer, on immunotherapy with durvalumab. HISTORY OF PRESENT ILLNESS: The patient is a 58-year-old female who was diagnosed with stage 3B poorly differentiated adenocarcinoma of the left lower lobe of the lung on 12/18/2017. She underwent chemotherapy with cisplatin and etoposide along with radiation therapy followed by consolidation treatment with durvalumab that was started on 04/30/2018. She received cycle #25 of durvalumab on 06/24/2019. She is due for cycle #26 on 07/08/2019 which would be her last cycle. She was admitted to [facility] on 06/30/2019 with complaints of fever of 4 days' duration with a maximum temperature of 100.4 along with productive cough, chest congestion, and headaches. She was thought to have flu-like illness. Flu swab in the clinic was negative. Fever has since been improving. I was asked to see the patient for management of lung cancer. PAST MEDICAL HISTORY: Hypertension. FAMILY HISTORY: Positive for lung cancer and colon cancer. SOCIAL HISTORY: She has a history of cigarette smoking, 1-1/2 pack per day for at least 40 years. REVIEW OF SYSTEMS: A 12-point review of systems was performed. Pertinent positives are mentioned in the history of present illness. Rest of the system review is negative. PHYSICAL EXAMINATION: GENERAL APPEARANCE: The patient is a 58-year-old female who is in no acute cardiorespiratory distress. VITAL SIGNS: Blood pressure 106/57, temperature 98.3, heart rate 95, and respiratory rate 14. HEENT: Head is atraumatic and normocephalic. Eyes; no icterus. NECK: Supple. CHEST: Bilaterally symmetrical. HEART: S1, S2 normal. ABDOMEN: Soft and nontender. CENTRAL NERVOUS SYSTEM: No focal deficits. LYMPHATICS: No lymphadenopathy. SKIN: No rashes. PSYCHOLOGIC: Mood and affect are appropriate. LABORATORY DATA: WBC 5.7, hemoglobin 11.7, and platelet count 147. IMPRESSION AND PLAN: 1. [id number] lung cancer/poorly differentiated adenocarcinoma of the left lower lobe of the lung, T3 N3 M0, stage 3B diagnosed on 12/18/2017, status post concurrent chemotherapy with radiation therapy utilizing cisplatin and etoposide, which was completed on 03/19/2018. Radiation therapy was completed on 03/30/2018. Consolidation treatment with durvalumab was started on 04/30/2018. Plan to proceed with cycle #26 of 26 on 07/08/2019. Her most recent treatment was on 06/24/2019. The current illness is unrelated to her underlying malignancy or durvalumab. 2. Fever, likely viral infection. She is feeling better. Continue to monitor p.r.n. Appreciate management per Dr. Jenny Novoa. 3. Neuropathic pain in the abdomen. Continue management per Dr. Conde. CARLO HIGGINS MD DR: RUPERTO/lisa JOB#: [id number] / [id number] JT
[2019-07-02] MEDS ORDERED: ASPIRIN CHEWABLE 81 MG TABLET. PO SCH (09:00)
== END 2019-07-01 15:38 | disposition home or self-care (01) | DRG 191 ==
LOC: 5 SOUTH 17:59
PROVIDERS: ADMIT Family Medicine; ATTEND Family Medicine
DX: J44.1 Chronic obstructive pulmonary disease with (acute) exacerbation (principal); C34.90 Malignant neoplasm of unspecified part of unspecified bronchus or lung; B34.9 Viral infection, unspecified; D64.9 Anemia, unspecified; E78.5 Hyperlipidemia, unspecified; E87.6 Hypokalemia; F41.9 Anxiety disorder, unspecified; F17.200 Nicotine dependence, unspecified, uncomplicated; I10 Essential (primary) hypertension; Z80.0 Family history of malignant neoplasm of digestive organs; Z80.1 Family history of malignant neoplasm of trachea, bronchus and lung; Z85.118 Personal history of other malignant neoplasm of bronchus and lung; Z92.3 Personal history of irradiation; Z88.0 Allergy status to penicillin
CPT/HCPCS: 36415; 71046; 80053; 81001; 84145; 85025; 85651; 87040; 87086; 94760; J7030; G0378

== ENCOUNTER → 2019-07-05 | Outpatient (CLI) | payer BC ==
[2018-08-19 15:15] VITALS: BP_DIAS 57
[2019-07-01 11:00] VITALS: BP_SYST 106
[~2019-07-05] MED LIST changes: +ALBU2.5V8 IH; +ASPI-630 PO; +BENZ-8 PO; +DULO30CA2 PO; +GADOTERATE 5 MMOL/10ML VIAL. IVP ONE; +POTA20TA4 PO
--- NOTE | 2019-07-05 14:47 | RAD ---
MRI of the Brain without and with Contrast 07/05/2019 Clinical History: Headaches. Lung cancer.. Technique: Unenhanced T1-weighted sagittal and axial and FLAIR, T2-weighted, gradient echo and diffusion-weighted axial images of the brain were obtained. After the intravenous administration of 10 cc of DOTAREM, enhanced T1-weighted axial, sagittal and coronal images of the brain were obtained. Findings: There is mild generalized parenchymal atrophy. Patchy and several small scattered areas of increased signal intensity are seen within the periventricular and subcortical white matter of both cerebral hemispheres on the FLAIR and T2-weighted images consistent most likely with areas of very mild small vessel ischemic disease. Small areas of encephalomalacia are seen involving the anterior medial inferior frontal lobes, right greater than left. No acute parenchymal abnormality is seen. No abnormal area of contrast enhancement is seen. No extra-axial fluid collection is noted. There is no MRI evidence of acute ischemia/infarction. Mild mucosal thickening in seen scattered throughout the paranasal sinuses. There are small bilateral mastoid effusions. Normal flow voids are seen within the major vascular structures surrounding the brain parenchyma. Impression: No acute parenchymal abnormality is seen. There is no MRI evidence of metastatic disease involving the brain parenchyma. Electronically signed by: Juan Gannon MD (07/05/2019 2:44 PM) [facility]
== END | disposition home or self-care (01) ==
LOC: MRI 13:39
PROVIDERS: ATTEND Internal Medicine Hematology & Oncology
DX: C34.32 Malignant neoplasm of lower lobe, left bronchus or lung (principal); G31.89 Other specified degenerative diseases of nervous system; J34.89 Other specified disorders of nose and nasal sinuses
CPT/HCPCS: 70553; A9575

== ENCOUNTER 2019-07-18 09:10 | Emergency (ER) | payer BC ==
[~2019-07-18] VITALS: Ht 165.1 cm; Wt 51.5 kg
[~2019-07-18 09:10] MED LIST changes: -GADOTERATE 5 MMOL/10ML VIAL. IVP ONE
[2019-07-18] MEDS ORDERED: ORPHENADRINE CITRATE 60 MG/2 ML VIAL. IM STA (09:47)
[2019-07-18] MEDS ORDERED: fentaNYL PF VIAL 100 MCG/2 ML VIAL IM STA (09:47)
--- NOTE | 2019-07-18 09:53 | PHYS DOC ---
Past Medical History Past Medical History: Cancer, Hypertension Past Surgical History: Tonsillectomy, Tubal ligation Alcohol Use: None Drug Use: None Adult General Chief Complaint Chief Complaint: HIP PAIN HPI HPI Patient is a 58 year old female who with left lower back pain that radiates down the left leg. The patient states that this has been ongoing since this past Thursday. She states that she feels like she has been having spasms in her left leg and feels some numbness/tingling down the left leg. The patient states that a alleviating factor is when she lays down as opposed to sitting up. She states that she is a lung cancer patient has received radiation, and chemo and her last chemo treatment was this past week. She states she took Hydrocodone, Tylenol, Ibuprofen, and Baclofen yesterday which did not relieve the pain. She rates her pain as 10/10 in severity. The patient denies additional symptoms. Complete ROS were reviewed and found to be within normal limits, except as documented in the HPI Current Medications Current Medications Current Medications Medications (Trade) Dose Ordered Sig/Mark Start Time Stop Time Status Last Admin Dose Admin Fentanyl Citrate (Fentanyl 2ml Vial) 50 mcg 1X STAT 07/18/19 09:47 07/18/19 09:49 DC 07/18/19 10:40 50 MCG Orphenadrine Citrate (Norflex) 60 mg 1X STAT 07/18/19 09:47 07/18/19 09:49 DC 07/18/19 10:40 60 MG Allergies Allergies Allergies Coded Allergies Type Severity Reaction Last Updated Verified Penicillins Allergy Intermediate Hives 11/25/17 Yes Physical Exam Physical Exam Constitutional: Well developed, well nourished, no acute distress, non-toxic appearance. [] HENT: Normocephalic, atraumatic, bilateral external ears normal, oropharynx moist, no oral exudates, nose normal. [] Eyes: PERRLA, EOMI, conjunctiva normal, no discharge. [] Skin: Warm, dry, no erythema, no rash. [] Back: Left lower back tenderness near her left hip with trigger point. Extremities: No tenderness, no cyanosis, no clubbing, ROM intact, no edema. No foot drop. Neurologic: Alert and oriented X 3, normal motor function, normal sensory function, no focal deficits noted. [] Psychologic: Affect normal, judgement normal, mood normal. [] Current Patient Data Vital Signs Vital Signs Date Time Temp Pulse Resp B/P (MAP) Pulse Ox O2 Delivery O2 Flow Rate FiO2 07/18/19 09:48 97.9 105 20 106/57 (73) 98 Room Air 97.9 EKG EKG [] Radiology/Procedures Radiology/Procedures [] Course & Med Decision Making Course & Med Decision Making Pertinent Labs and Imaging studies reviewed. (See chart for details) The patient appears to be having a sciatica attack. Will give Fentanyl and Norflex in ER. Also discussed with patient taking ThermaCare Heat patch and Foam Roller at home. Norflex and Fentanyl improved pain some. Will prescribe Medrol dose pack. Dragon Disclaimer Dragon Disclaimer This electronic medical record was generated, in whole or in part, using a voice recognition dictation system. Departure Departure Impression: Primary Impression: Sciatica of left side Disposition: HOME, SELF-CARE Condition: STABLE Referrals: MANJULA BYRD MD (PCP) Patient Instructions: Sciatica, Sciatica with [facility] Additional Instructions: Thank you for visiting [facility]. We appreciate you trusting us with your care. If any additional problems come up don't hesitate to return to visit us. Please follow up with your primary care provider so they can plan additional care if needed and know about the problem that you had. If symptoms worsen come back to the Emergency Department. Any concerning symptoms that start such as chest pain, shortness of air, weakness or numbness on one side of the body, running high fevers or any other concerning symptoms return to the ER. Scripts Methylprednisolone (MEDROL) 4 Mg Tab.ds.pk 1 PKG PO UD, #1 PKG Prov: KALLI DE LA CRUZ APRN 07/18/19 KALLI DE LA CRUZ APRN Jul 18, 2019 09:52
[2019-07-18 10:42] VITALS: BP 142/82
[2019-07-18] MEDS ORDERED: METH4TAB2 PO (11:26)
== END 2019-07-18 12:00 | disposition home or self-care (01) ==
LOC: ER 09:10
DX: M54.42 Lumbago with sciatica, left side (principal); R20.0 Anesthesia of skin; R20.2 Paresthesia of skin; Z85.9 Personal history of malignant neoplasm, unspecified; Z90.89 Acquired absence of other organs; Z98.51 Tubal ligation status; Z88.0 Allergy status to penicillin
CPT/HCPCS: 96372; 99284; J2360; J3010

== ENCOUNTER → 2019-08-31 | Outpatient (CLI) | payer BC ==
[~2019-08-31] MED LIST changes: +DICL100G18 TP; +GABA300C18 PO; +IOHEXOL 180 MG/ML 10 ML VIAL. ONE; +METH4TAB2 PO; +VENTOLIN HFA18 GM INH; +methylPREDNISolone ACETATE 40 MG/ML VIAL. ONE; +methylPREDNISolone ACETATE 80 MG/ML VIAL. ONE
--- NOTE | 2019-08-31 12:43 | PAIN ---
DATE OF SERVICE: 08/31/2019 INITIAL CONSULTATION FOR PAIN CLINIC CHIEF COMPLAINT: Low back and left lower extremity pain. HISTORY OF PRESENT ILLNESS: This is a 58-year-old female who presents with history of pain in the low back and left lower extremity since 07/14/2019. The patient reports ____ occurred gradually, but not the result of any specific injury or action that she is aware of. She did fall yesterday, which exacerbated the pain fairly significantly. The patient reports since 07/14/2019, it has been a constant pain in the low back radiating to posterior gluteus, posterior thigh, lateral thigh, anterior thigh, medial thigh and groin, medial knee, and medial lower leg as well on the left side only. The patient reports across the back to some extent and occasionally has numbness sensation in the right leg, but only very rarely. The patient reports the pain now as constant, sharp, stabbing, throbbing, shooting with tingling, numbness in the back and the leg, radiating, burning, aching and cramping as well on the left leg causing some significant fatigability where she has been having to lift her leg up to get in the car, out of the car, into a chair and so forth. The patient reports it awakens her from sleep constantly through the night at least 10 times at night secondary to the pain. She tosses and turns quite a bit. The patient reports it does not affect her bowel or bladder control, but does affect her ability to walk. She uses a walker from time to time, does not have one with her today. The patient reports she had chiropractic treatment, which was not helpful. She is doing stretching and strengthening exercises on her own. She also tried gabapentin, duloxetine, hydrocodone, all of which have helped to some extent, but only mildly with the hydrocodone. The patient reports no loss of motor function again, but significant fatigability of the left leg, even with short distances walking. The patient did have MRI scan of the lumbar spine showing some significant diffuse disk bulging, most pronounced on the left at L3-4 with mild superior displacement of the exiting left L3 nerve root. Also, some mild diffuse annular disk bulge at L4-5 and L5-S1. The patient rates her disability rating from 0-10, 10 being the worst, is a 10 in all categories, family and home responsibilities, recreation, social activity, occupation, self-care, and life support activities. PAST MEDICAL HISTORY: Significant for hearing loss, non-small cell carcinoma of the lung, status post chemotherapy and radiation, most recently in June, hypotension, weight loss secondary to the chemotherapy, also history of neuropathy, peripheral headaches. PREVIOUS SURGERY: Include tonsillectomy and tubal ligation. CURRENT MEDICATIONS: Include gabapentin, Voltaren, albuterol inhaler, hydrocodone, Cymbalta, daily baby aspirin, and Tudorza inhaler. ALLERGIES: The patient is allergic to PENICILLIN. FAMILY HISTORY: Significant for cancer and hypertension. SOCIAL HISTORY: The patient does not drink alcohol. Smokes less than a pack a day and continues to smoke. Does not use any illegal, illicit, or recreational drugs. She is single. Lives locally in [place], [place]. 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 REVIEW OF SYSTEMS: The patient's review of systems is positive for those items mentioned in history of present illness. All systems reviewed and otherwise negative. It is complete, full, and well documented on the patient's chart. PHYSICAL EXAMINATION: VITAL SIGNS: The patient's blood pressure is 120/79, pulse 109, respirations 16, temperature 98.5 degrees Fahrenheit, height is 5 feet 5 inches, weight is 109 pounds. GENERAL: The patient is awake, alert, oriented, appropriate, very pleasant demeanor. HEENT: Normocephalic, atraumatic. Extraocular movements are intact and symmetrical. Oral cavity: Mucous membranes are moist and pink. Dentition is intact. NECK: Shows anterior throat supple without palpable lymphadenopathy noted. Swallow reflex symmetrical. CHEST: Shows normal on inspection. Breath sounds are clear bilaterally. HEART: Shows S1, S2 clear. No murmurs auscultated. ABDOMEN: Soft, nontender, and nondistended. No palpable organomegaly is noted. No rebound or guarding demonstrated. BACK: Shows spine grossly in the midline. Normal appearing thoracic kyphosis, cervical lordotic curvature and lumbar lordotic curvature. Lumbar paraspinous muscle shows symmetrical on inspection, on palpation shows some [id number] tenderness in the low lumbar distribution, more on the left than the right, but present bilaterally. No asymmetry, no atrophy, hypertrophy, no trigger points. The patient has full rotational motion of lumbar spine, both laterally greater than 10 degrees right and left as well as extension greater than 10 degrees, forward flexion 45 degrees without significant pain reported. No tenderness over the spinous processes, sacrum, or sacroiliac regions. EXTREMITIES: The patient's lower extremities show deep tendon reflexes at 2+ patellar, 1+ tendo-calcaneus tendons. Motor exam is approximately 3-4 on a scale of 5 with left dorsiflexion, extension, and quadriceps and hamstring flexion and 5/5 on the right. Peripheral pulses are 1+ posterior tibial. No peripheral edema is noted bilaterally. Lower extremities are warm and dry to touch, equal in color and appearance. The patient is able to stand, stand on her toes without significant difficulty or loss of balance. Walks with a normal-appearing gait, not using any assistive devices, but does appear to favor the left lower extremity slightly with ambulating for a short distance. The patient's skin shows warm and dry, good turgor. No edema. No sores, rashes, or bruising throughout. IMPRESSION: 1. This is a 58-year-old female with history since end of June, low back and left lower extremity pain in a radicular fashion as noted. 2. MRI scan of lumbar spine as noted. 3. History of non-small cell carcinoma, status post chemotherapy and radiation treatment. PLAN: Options were discussed with the patient including conservative medical managements, physical therapies, and interventional techniques. She would like to pursue interventional techniques. We discussed a lumbar epidural steroid injection using description as well as anatomical models to describe the procedure. Risks were then discussed including, but not limited to bleeding, infection, possibility of epidural hematoma, subsequent neurological compromise, dural puncture, headaches, spinal cord and/or nerve damage, side effects of steroid medication, and poor results regarding pain control. The patient understands and wished to proceed. The patient will return to clinic in approximately 2 weeks for followup. She was counseled as to return appointment, activity level and side effects to be aware of. DIAGNOSIS: Lumbar radiculopathy with lumbar degenerative disk disease. PROCEDURE: Lumbar epidural steroid injection, translaminar approach at L3-L4 level using C-arm fluoroscopic guidance under sterile prep and drape using local anesthetic. MEDICATION INJECTED: A total of 120 mg Depo-Medrol plus 10 mL of preservative-free normal saline and 2 mL of contrast. CONDITION AT DISCHARGE: Stable. The patient tolerated procedure well, had no complications. LAKEISHA GROSS MD DR: JASPER/lisa JOB#: [id number] / [id number] MANJULA Garg MD
== END ==
LOC: PNCL 08:52
PROVIDERS: ATTEND Anesthesiology
DX: M51.16 Intervertebral disc disorders with radiculopathy, lumbar region (principal); I10 Essential (primary) hypertension; F17.210 Nicotine dependence, cigarettes, uncomplicated; Z85.118 Personal history of other malignant neoplasm of bronchus and lung; Z98.51 Tubal ligation status; Z88.0 Allergy status to penicillin
CPT/HCPCS: 62323; J1030; J1040; Q9965

== ENCOUNTER → 2019-09-16 | Outpatient (CLI) | payer BC ==
[~2019-09-16] MED LIST changes: +ATOR20TA58 PO
--- NOTE | 2019-09-16 11:10 | PAIN ---
DATE OF SERVICE: 09/16/2019 PROGRESS NOTE FOR PAIN CLINIC DIAGNOSIS: Lumbar radiculopathy with lumbar degenerative disk disease. HISTORY OF PRESENT ILLNESS: The patient is a 58-year-old female who returns for followup status post lumbar epidural steroid injection x 1. The patient reports about 50% improvement in the low back and left lower extremity. The patient reports much less tingling and numbness in the leg. Now, it is more on the inside of the leg on the left side, inner thigh as well as the groin and into the knee. The patient reports the dull aching pain is becoming much less noticeable. The patient reports increase in her activity with greater ease and comfort, distance walking, doing household activities as well and traveling with greater ease. The patient reports it does awaken her from sleep occasionally, but has not been quite as frequent as it was previously. The patient reports no new motor or sensory deficits, no new bowel or bladder incontinence. The patient reports pain is a 10 on a scale of 10 at its worst over the past week, 10 on average, 6 at its least and is a 6 today. The patient reports no new changes, no new motor or sensory deficits, no bowel or bladder incontinence. Describes the pain as aching, sharp, tight, tingling, burning, cramping, stabbing at times, constant, severe with walking and standing, in the medial thigh only, but the lateral is doing much better. PHYSICAL EXAMINATION: VITAL SIGNS: The patient's blood pressure is 114/70, pulse 111, respirations 18, temperature is 98.6 degrees Fahrenheit, height is 5 feet 5 inches, weight is 109 pounds. GENERAL: The patient is awake, alert, oriented, appropriate, very pleasant demeanor. HEENT: Head shows normocephalic, atraumatic. Extraocular movements are intact and symmetrical. Oral cavity: Mucous membranes moist and pink. Dentition is intact. NECK: Shows anterior throat supple without palpable lymphadenopathy noted. Swallow reflex symmetrical. CHEST: Shows normal on inspection. Breath sounds are clear bilaterally. HEART: Shows S1, S2 clear. No murmurs auscultated. ABDOMEN: Soft, nontender, nondistended. BACK: Shows spine grossly in the midline. Normal appearing thoracic kyphosis, some minor flattening of the lumbar lordotic curvature. Lumbar paraspinous muscle shows symmetrical on inspection, with palpation shows moderate tenderness diffusely bilaterally, but only diffusely without significant radiation. EXTREMITIES: The patient's lower extremities show deep tendon reflexes at 2+ in the patella, 1+ tendo-calcaneus tendons. Motor exam is approximately 3-4 on a scale of 5 on the left with dorsiflexion, extension, quadriceps and hamstring flexion and 5/5 on the right. Peripheral pulses are 1+ posterior tibia. No peripheral edema is noted bilaterally. Options were discussed with the patient. The patient's old chart was reviewed as her current medication regimen updated. Current review of systems updated today as well. We will proceed with a second in a series of lumbar epidural steroid injections today with fluoroscopic guidance. Risks were again discussed including, but not limited to bleeding, infection, possibility of epidural hematoma, subsequent neurological compromise, dural puncture, headaches, spinal cord and/or nerve damage, side effects of steroid medication and poor results regarding pain control. The patient understands and wished to proceed. The patient will return to clinic in approximately 2 weeks for followup. She was counseled on return appointment, activity level and side effects to be aware of. DIAGNOSIS: Lumbar radiculopathy with lumbar degenerative disk disease. PROCEDURE: Lumbar epidural steroid injection, translaminar approach at the L3-L4 level using C-arm fluoroscopic guidance under sterile prep and drape using local anesthetic. MEDICATION INJECTED: A total of 120 mg Depo-Medrol plus 10 mL of preservative-free normal saline and 2 mL of contrast. CONDITION AT DISCHARGE: Stable. The patient tolerated the procedure well, had no complications. LAKEISHA GROSS MD DR: JASPER/lisa JOB#: [id number] / [id number]
== END ==
LOC: PNCL 09:07
PROVIDERS: ATTEND Anesthesiology
DX: M51.16 Intervertebral disc disorders with radiculopathy, lumbar region (principal)
CPT/HCPCS: 62323; J1030; J1040; Q9965

== ENCOUNTER → 2019-09-30 | Outpatient (CLI) | payer BC ==
[~2019-09-30] MED LIST changes: +CONTRAST GIVEN. MC PRN; -IOHEXOL 180 MG/ML 10 ML VIAL. ONE; +IOHEXOL 300 MG/ML 100ML VIAL. IV ONE; -methylPREDNISolone ACETATE 40 MG/ML VIAL. ONE; -methylPREDNISolone ACETATE 80 MG/ML VIAL. ONE
--- NOTE | 2019-09-30 11:08 | [facility] ---
CT CHEST W/CONTRAST Indication: Lung cancer, chemotherapy Technique: Postcontrast CT imaging was performed of the chest, multiplanar reconstruction images submitted. One or more of the following individualized dose reduction techniques were utilized for this examination: 1. Automated exposure control 2. Adjustment of the mA and/or kV according to patient size 3. Use of iterative reconstruction technique. Comparison: March 21, 2019 Findings: There is again round masslike density along the posterior aspect of the left hilum extending to the left lower lobe, measures about 4.2 cm transverse by 4.1 cm AP by 4.5 cm cc, size and morphology similar. No new lung mass is identified. There is again right internal jugular port catheter tip terminating in the superior vena cava. There is coronary calcification. Thoracic aortic caliber is within normal limits without dissection flap, scattered plaque greater of the descending thoracic aorta, also prominent plaque of the visualized abdominal aorta. There is no pericardial pleural fluid or pneumothorax. There is centrilobular emphysema. IMPRESSION: 1. Posterior left perihilar and left lower lobe lung mass is stable, no new lung mass or lymphadenopathy. 2. There is centrilobular emphysema. 3. There is coronary calcification, also plaque of the thoracoabdominal aorta. Electronically signed by: Vahid Waddell MD (09/30/2019 11:05 AM) [place] [id number]
== END | disposition home or self-care (01) ==
LOC: KCIC CT 10:16
PROVIDERS: ATTEND Internal Medicine Hematology & Oncology
DX: C34.90 Malignant neoplasm of unspecified part of unspecified bronchus or lung (principal); J43.2 Centrilobular emphysema; I25.10 Atherosclerotic heart disease of native coronary artery without angina pectoris; I70.0 Atherosclerosis of aorta; R91.8 Other nonspecific abnormal finding of lung field
CPT/HCPCS: 71260; Q9967

== ENCOUNTER → 2019-10-07 | Outpatient (CLI) | payer BC ==
[~2019-10-07] MED LIST changes: -CONTRAST GIVEN. MC PRN; +IOHEXOL 180 MG/ML 10 ML VIAL. ONE; -IOHEXOL 300 MG/ML 100ML VIAL. IV ONE; +methylPREDNISolone ACETATE 40 MG/ML VIAL. ONE; +methylPREDNISolone ACETATE 80 MG/ML VIAL. ONE
--- NOTE | 2019-10-07 11:53 | PAIN ---
DATE OF SERVICE: 10/07/2019 PROGRESS NOTE FOR PAIN CLINIC DIAGNOSES: Lumbar radiculopathy with lumbar degenerative disk disease. HISTORY OF PRESENT ILLNESS: The patient is a 58-year-old female who returns for followup status post lumbar epidural steroid injections x 2. The patient reports about 50% improvement overall with pain in the low back and especially in the left lower extremity. The patient reports it is a 10 on a scale of 10 at its worst over the past week, 9 on average and a 2 at its least and is a 2 today. The patient reports no new motor or sensory deficits, no new bowel or bladder incontinence. Describes the pain as aching, tight, shooting, tingling, burning, cramping at times, radiating, becoming constant, severe with activity, standing, walking, changing positions, better at night, but it does awaken her from sleep occasionally, but not every night. The patient reports no new motor or sensory deficits, no new bowel or bladder incontinence. PHYSICAL EXAMINATION: VITAL SIGNS: The patient's blood pressure 118/71, pulse 121, respirations 16, temperature 98.5 degrees Fahrenheit, weight is 107 pounds. GENERAL: The patient is awake, alert, oriented, appropriate, very pleasant demeanor. HEENT: Exam shows normocephalic, atraumatic. Extraocular movements are intact and symmetrical. Oral cavity shows mucous membranes are moist and pink. Dentition is intact. NECK: Shows anterior throat supple without palpable lymphadenopathy noted. Swallow reflex symmetrical. CHEST: Shows normal on inspection. Breath sounds are clear bilaterally. HEART: Shows S1, S2 clear. No murmurs auscultated. ABDOMEN: Soft, nontender, nondistended. No palpable organomegaly is noted. No rebound or guarding demonstrated. BACK: Shows spine grossly in the midline. Normal appearing thoracic kyphosis and some minor flattening of lumbar lordotic curvature. Lumbar paraspinous muscle shows symmetrical on inspection, on palpation shows some moderate tenderness diffusely bilaterally, but only diffusely without significant radiation. EXTREMITIES: The patient's lower extremities show deep tendon reflexes at 1+ in the patellar and tendo calcaneus tendons. Motor exam is approximately 4 on a scale of 5 on the left and 5/5 on the right. Peripheral pulses are 1+. No peripheral edema is noted. Options were discussed with the patient. The patient's old chart was reviewed as her current medication regimen updated. Current review of systems updated today as well. We will proceed with a third in the series of lumbar epidural steroid injection today with fluoroscopic guidance. Risks were again discussed including, but not limited to bleeding, infection, possibility of epidural hematoma, subsequent neurological compromise, dural puncture, headaches, spinal cord and/or nerve damage, side effects of steroid medication and poor results regarding pain control. The patient understands and wished to proceed. The patient will return to clinic in approximately 2 weeks for followup. She was counseled on return appointment, activity level and side effects to be aware of. DIAGNOSES: Lumbar radiculopathy with lumbar degenerative disk disease. PROCEDURE: Lumbar epidural steroid injection, translaminar approach at L3-L4 level using C-arm fluoroscopic guidance under sterile prep and drape using local anesthetic. MEDICATION INJECTED: A total of 120 mg Depo-Medrol plus 10 mL of preservative-free normal saline and 2 mL of contrast. CONDITION AT DISCHARGE: Stable. The patient tolerated procedure well, had no complications. LAKEISHA GROSS MD DR: JASPER/lisa JOB#: [id number] / [id number]
== END | disposition home or self-care (01) ==
LOC: PNCL 10:34
PROVIDERS: ATTEND Anesthesiology
DX: M51.16 Intervertebral disc disorders with radiculopathy, lumbar region (principal); Z88.0 Allergy status to penicillin; Z98.890 Other specified postprocedural states
CPT/HCPCS: 62323; J1030; J1040; Q9965

== ENCOUNTER → 2019-12-08 | Outpatient (CLI) | payer BC ==
[~2019-12-08] MED LIST changes: -DICL100G18 TP; +DICL100G54 TP; -IOHEXOL 180 MG/ML 10 ML VIAL. ONE; -methylPREDNISolone ACETATE 40 MG/ML VIAL. ONE; -methylPREDNISolone ACETATE 80 MG/ML VIAL. ONE
--- NOTE | 2019-12-08 15:31 | KCIC ---
Five view lumbar spine radiographs to include AP and lateral radiographs of the sacrum/coccyx 12/08/2019 CLINICAL HISTORY: Low back pain which radiates down both legs. Standing AP, two lateral and bilateral digital radiographs of the lumbar spine were obtained. Two standing AP and lateral digital radiographs of the sacral coccygeal vertebrae were obtained. The patient has transitional vertebral anatomy. The transitional vertebral segment is sacralized. There is diffuse osteopenia of the visualized bony structures. Very mild S-shaped curvature of the thoracolumbar spine is seen. No fracture or subluxation of the lumbar vertebrae seen. Degenerative changes consisting of vertebral endplate sclerosis and minimal to mild anterior and posterior vertebral body osteophyte formation are seen involving lower thoracic and throughout the lumbar disc spaces. Degenerative changes are seen involving the facet joints of the lower lumbar spine. Atherosclerotic calcification of the abdominal aorta and its branches is noted. No sacral or coccygeal fracture is seen. Mild to moderate degenerative changes are seen involving both SI joints. IMPRESSION: Degenerative changes are seen as discussed above. No acute osseous abnormality is noted. Electronically signed by: Juan Gannon MD (12/08/2019 3:28 PM) [id number]
== END | disposition home or self-care (01) ==
LOC: KCIC 11:31
PROVIDERS: ATTEND Physician Assistant Medical
DX: M47.26 Other spondylosis with radiculopathy, lumbar region (principal); M47.898 Other spondylosis, sacral and sacrococcygeal region; M25.78 Osteophyte, vertebrae; I70.0 Atherosclerosis of aorta; M54.42 Lumbago with sciatica, left side; M54.41 Lumbago with sciatica, right side
CPT/HCPCS: 72110; 72220

== ENCOUNTER 2019-12-22 11:40 | Emergency (ER) | payer BC ==
[~2019-12-22] VITALS: Ht 165.1 cm; Wt 50.0 kg
[~2019-12-22 11:40] MED LIST changes: -CELE200C PO; -POTA10TA12 PO
[2019-12-22 12:45] VITALS: BP 107/63
[2019-12-22] MEDS ORDERED: HYDROcodone/APAP 7.5/325MG 1 TAB TABLET PO ONE (13:15)
--- NOTE | 2019-12-22 14:02 | RAD ---
Left hip 2 views with one view pelvis, left knee 3 views. HISTORY: Fall with pain in knee pain Single view was taken of the pelvis. There is no acute pelvic fracture. Right hip appears unremarkable. AP and lateral views were taken of the left hip. There is no acute fracture or osseous abnormality Left knee 3 views were taken of the left knee. There is not evidence of an acute fracture or joint effusion or osseous abnormality. IMPRESSION: 1. No fracture noted in the left hip. 2. No acute fracture noted in the left knee. Electronically signed by: Tino Ball MD (12/22/2019 1:59 PM) [facility]
--- NOTE | 2019-12-22 14:20 | PHYS DOC ---
Past Medical History Past Medical History: Cancer, Hypertension Past Surgical History: Tonsillectomy, Tubal ligation Smoking Status: Current Every Day Smoker Alcohol Use: None Drug Use: None General Adult EDM: Chief Complaint: KNEE INJURY HPI: HPI: Patient is a 59 year old female who presents to the emergency department with complaints of left anterior knee, left hip, and left low back pain after a fall from standing at approximately 1125. Patient reports that she was walking in the hospital from having an outpatient ultrasound done when her left knee gave o ut and caused her to fall. She states she landed mostly on her left side. She denies hitting her head, loss of consciousness, nausea, vomiting, numbness, tingling, or weakness after the fall. She also reports pain in both of her hands and ankles but denies any swelling, deformity, or decreased range of motion to either of her hands. She currently rates her pain a 10 out of 10 on a pain scale, patient states she takes 7.5/325 mg hydrocodone's for chronic pain condition at home. Her last hydrocodone was at 5:00 this morning. Review of Systems: Review of Systems: Complete ROS is negative unless otherwise stated in the HPI. Heart Score: Risk Factors: Risk Factors: DM, Current or recent (<one month) smoker, HTN, HLP, family history of CAD, obesity. Risk Scores: Score 0 - 3: 2.5% MACE over next 6 weeks - Discharge Home Score 4 - 6: 20.3% MACE over next 6 weeks - Admit for Clinical Observation Score 7 - 10: 72.7% MACE over next 6 weeks - Early Invasive Strategies Current Medications: Current Medications Medications (Trade) Dose Ordered Sig/Mark Start Time Stop Time Status Last Admin Dose Admin Acetaminophen/ Hydrocodone Bitart (Lortab 7.5/325) 1 tab 1X ONCE 12/22/19 13:15 12/22/19 13:16 DC 12/22/19 13:27 1 TAB Allergies: Allergies: Allergies Coded Allergies Type Severity Reaction Last Updated Verified Penicillins Allergy Intermediate Hives 11/25/17 Yes Physical Exam: PE: Constitutional: Well developed, well nourished, no acute distress, non-toxic appearance. [] HENT: Normocephalic, atraumatic, bilateral external ears normal, nose normal. [] Eyes: PERRLA, EOMI, conjunctiva normal, no discharge. [] Neck: Normal range of motion, no stridor. [] Cardiovascular:Heart rate regular rhythm Lungs & Thorax: Respirations even and unlabored, no retractions, no respiratory distress Abdomen: soft, no tenderness Back: No bony tenderness, left lumbar paraspinal tenderness to palpation Skin: Warm, dry, no erythema, no rash. [] Extremities: bilateral hands and ankles: no TTP, No cyanosis, PMS intact, no edema; L hip: Lateral TTP, no edema, no bruising, no crepitus or obvious deformity, ROM intact; L knee: anterior TTP, no crepitus or obvious deformity, No cyanosis, ROM intact, no edema, negative anterior and posterior drawer testing, patient did not tolerate stress testing. [] Neurologic: Alert and oriented X 3, no focal deficits noted. [] Psychologic: Affect normal, judgement normal, mood normal. [] Current Patient Data: Vital Signs: Vital Signs Date Time Temp Pulse Resp B/P (MAP) Pulse Ox O2 Delivery O2 Flow Rate FiO2 12/22/19 13:27 16 Room Air 12/22/19 12:45 98.4 112 107/63 (78) 95 98.4 EKG: EKG: [] Radiology/Procedures: Radiology/Procedures: PROCEDURE: KNEE LEFT 3V Left hip 2 views with one view pelvis, left knee 3 views. HISTORY: Fall with pain in knee pain Single view was taken of the pelvis. There is no acute pelvic fracture. Right hip appears unremarkable. AP and lateral views were taken of the left hip. There is no acute fracture or osseous abnormality Left knee 3 views were taken of the left knee. There is not evidence of an acute fracture or joint effusion or osseous abnormality. IMPRESSION: 1. No fracture noted in the left hip. 2. No acute fracture noted in the left knee.[] Course & Med Decision Making: Course & Med Decision Making Pertinent Labs and Imaging studies reviewed. (See chart for details) [] Dragon Disclaimer: Dragon Disclaimer: This electronic medical record was generated, in whole or in part, using a voice recognition dictation system. Departure Departure Impression: Primary Impression: Contusion of left knee, initial encounter Additional Impressions: Left knee pain Qualified Codes: M25.562 - Pain in left knee Pain in left paraspinal region Left hip pain Fall Qualified Codes: W19.XXXA - Unspecified fall, initial encounter Disposition: HOME, SELF-CARE Condition: STABLE Referrals: MANJULA BYRD MD (PCP) REVA LONGO II, MD Patient Instructions: Back Pain, Adult, [id number], Contusion, [id number], Hip Pain Additional Instructions: Continue taking her hydrocodone at home as needed for pain. You may also take ibuprofen as needed for pain. Recommend application of ice, elevation, and rest of affected areas. Activity as tolerated, follow-up with Dr Longo or your primary care doctor symptoms persist. Return to the ER if your symptoms worsen. Justicifation of Admission Dx: Justifications for Admission: Justification of Admission Dx: N/A LARRY BURKETT APRN Dec 22, 2019 14:20
== END 2019-12-22 15:20 | disposition home or self-care (01) ==
LOC: ER 11:40
DX: S80.02XA Contusion of left knee, initial encounter (principal); M25.552 Pain in left hip; M54.5 Low back pain; I10 Essential (primary) hypertension; F17.200 Nicotine dependence, unspecified, uncomplicated; Z88.0 Allergy status to penicillin; W18.39XA Other fall on same level, initial encounter; Y93.01 Activity, walking, marching and hiking; Y92.238 Other place in hospital as the place of occurrence of the external cause; Y99.8 Other external cause status
CPT/HCPCS: 73502; 73562; 99284

== ENCOUNTER → 2019-12-22 | Outpatient (CLI) | payer BC ==
[~2019-12-22] MED LIST changes: +CELE200C PO; +POTA10TA12 PO
--- NOTE | 2019-12-22 12:35 | RAD ---
EXAM: Left lower extremity venous Doppler. HISTORY: Left lower extremity pain/swelling. COMPARISON: None. FINDINGS: Grayscale and Doppler analysis of the left lower extremity deep venous system was performed with graded compression and augmentation. The common femoral, greater saphenous, superficial femoral, popliteal and calf veins were assessed. There is no evidence of deep venous thrombosis. IMPRESSION: 1. No evidence of deep venous thrombosis. Electronically signed by: Cayla Deluna MD (12/22/2019 12:32 PM) [id number]
== END | disposition home or self-care (01) ==
LOC: US 11:30
PROVIDERS: ATTEND Physician Assistant Medical
DX: R22.42 Localized swelling, mass and lump, left lower limb (principal); R20.2 Paresthesia of skin
CPT/HCPCS: 93971

== ENCOUNTER → 2020-01-06 | Outpatient (CLI) | payer BC ==
[2019-12-22 12:45] VITALS: BP 107/63
--- NOTE | 2020-01-06 14:04 | KCIC ---
Examination: MRI of the left knee without contrast HISTORY: History of medial left knee pain COMPARISON: None available TECHNIQUE: Multiplanar, multisequence MR imaging of the left knee were performed without contrast. FINDINGS: The anterior cruciate ligament, posterior cruciate ligament appear intact. There is undersurface tear of the body and posterior horn of the medial meniscus. Minimal increased horizontal signal identified in the body and posterior horn lateral meniscus likely degenerative tear. The extensor mechanism is intact. Medial collateral ligament appears intact. Lateral collateral ligamentous complex including the fibular collateral ligament, biceps femoris tendon, popliteus tendon grossly appears intact. Small knee joint effusion. Minimal superficial fraying of cartilage identified in the medial compartment. There is mild trabecular edema identified in the posterior medial tibial plateau. IMPRESSION: 1. Undersurface tear of the body and posterior horn of the medial meniscus. 2. Minimal increased horizontal signal identified in the body and posterior horn lateral meniscus likely degenerative tear. 3. Mild trabecular edema identified in the posterior medial tibial plateau, probably secondary to contusion. Electronically signed by: Jori Childs MD (01/06/2020 2:01 PM) [id number]
--- NOTE | 2020-01-06 14:25 | KCIC ---
LUMBAR SPINE WO CONTRAST History: Reason: LEFT MEDIAL KNEE PAIN WITH LUMBAGO LEFT SIDE/LUMBOSACRAL RADICULOPATHY / Spl. Instructions: / History: Multiple falls, Left leg numbness and right foot numbness. Technique: Multiplanar, multi sequential MR imaging was performed of the lumbar spine. Comparison: None Findings: Normal vertebral body height and alignment. No fracture. Conus terminates at the normal location. No evidence of nerve root clumping. L1-L2: No canal or neuroforaminal narrowing. L2-L3: Minimal disc bulge. No canal or neuroforaminal narrowing. L3-L4: Small left subarticular/foraminal disc protrusion. Mild left subacute recess narrowing abutment of the descending left L4 nerve root. Mild left neuroforaminal narrowing. No right neuroforaminal narrowing. No canal narrowing. Mild facet arthropathy. L4-L5: Disc bulge. Moderate facet arthropathy. No canal narrowing. No neuroforaminal narrowing. L5-S1: Disc bulge with central annular fissure. Mild subarticular recess narrowing, left greater than right. Moderate facet arthropathy. No canal narrowing. No neuroforaminal narrowing. Impression: 1. Mild multilevel lumbar spondylosis. 2. Small left L3-L4 subarticular and foraminal disc protrusion contacting the descending left L4 nerve root. Correlate for radiculopathy. Electronically signed by: Alonzo Gallardo DO (01/06/2020 2:22 PM) [id number]
== END | disposition home or self-care (01) ==
LOC: KCIC MRI 12:17
PROVIDERS: ATTEND Family Medicine
DX: S83.242A Other tear of medial meniscus, current injury, left knee, initial encounter (principal); M25.462 Effusion, left knee; M47.27 Other spondylosis with radiculopathy, lumbosacral region; M51.16 Intervertebral disc disorders with radiculopathy, lumbar region; M48.07 Spinal stenosis, lumbosacral region; R20.2 Paresthesia of skin; X58.XXXA Exposure to other specified factors, initial encounter; Y93.89 Activity, other specified; Y92.89 Other specified places as the place of occurrence of the external cause; Y99.8 Other external cause status
CPT/HCPCS: 72148; 73721

== ENCOUNTER → 2020-01-20 | Outpatient (CLI) | payer BC ==
[2019-12-22 12:45] VITALS: BP 107/63
--- NOTE | 2020-01-20 10:27 | KCIC ---
EXAM: 3 views of the left ankle DATE: 01/20/2020 12:00 AM INDICATION: Reason: LT LATERAL ANKLE PAIN, 5 FALLS SINCE 08/30/2019 / Spl. Instructions: / History: COMPARISON: No Prior FINDINGS: No acute fracture or dislocation. Equivocal sclerotic focus through the posterior most aspect of the calcaneus is favored to represent summation artifact. Ankle mortise is congruent. Talar dome is intact. Joint spaces are preserved without significant degenerative/proliferative change. No significant soft tissue swelling. IMPRESSION: 1. No definite acute fracture or dislocation. If there is persistent clinical concern for fracture, follow-up radiographs in 10-14 days is recommended. 2. Equivocal sclerotic focus through the posterior most aspect of the calcaneus is favored to represent summation artifact, however this can be correlated with point tenderness. Electronically signed by: Amador Morejon MD (01/20/2020 10:24 AM) RICHARD
== END | disposition home or self-care (01) ==
LOC: KCIC 09:34
PROVIDERS: ATTEND Family Medicine
DX: M25.572 Pain in left ankle and joints of left foot (principal)
CPT/HCPCS: 73610

== ENCOUNTER → 2020-02-01 | Outpatient (CLI) | payer BC ==
[~2020-02-01] MED LIST changes: +CELE200C PO; +POTA-163 PO; +POTA10TA12 PO
--- NOTE | 2020-02-01 14:13 | PDOC ---
Progress Note - Pain Clinic Date of Service: DOS: DATE: 02/01/20 TIME: 14:09 Diagnosis: Dx: Lumbar radiculopathy with lumbar degenerative disc disease Left knee joint pain with osteoarthritis History or Present Illness: HPI: 59-year-old female returns follow-up status post lumbar epidural straight injections x3 most recently October 07, 2019. Patient reports a significant improvement at 75% with pain returning down her low back especially in her left lower extremity. Patient also has pain in the left knee has had a recent injection in the left knee from her primary care physician which helped for a few days but the pain is returned. Patient ports pain is shooting and radiating to the low back left lower extremity anterior lateral thigh medial thigh posterior thigh posterior calf lateral calf and top of the foot and both feet is aching sharp dull tight shooting stabbing cramping burning and tingling scribes radiating the leg/on the left side becoming more constant severe with activity. Patient which is painful to have a shoe on the left foot and the leg feels "" and then ward. Patient reports no loss of motor function but has fallen 5 times since August and has had increased pain with her back with the falls as well. Patient ports no bowel or bladder incontinence or other complaint Physical Exam: VS: Blood pressure is 126/69 pulse 99 respiration 16 temperature 98.4 F weight is 112 pounds PE: PHYSICAL EXAMINATION: GENERAL: The patient is awake, alert, oriented, appropriate, very pleasant demeanor HEENT: Shows normocephalic, atraumatic. Extraocular movements are intact and symmetrical. Oral cavity: Mucous membranes moist and pink. Dentition is intact. NECK: Shows anterior throat supple without palpable lymphadenopathy noted. Swallow reflex symmetrical. CHEST: Shows normal on inspection. Breath sounds are clear bilaterally, no rales rhonchi or wheezes auscultated. HEART: Shows S1, S2 clear. No murmurs auscultated. ABDOMEN: Soft, nontender, nondistended. No palpable organomegaly is noted. No rebound or guarding demonstrated. BACK: Shows spine grossly in the midline. Normal-appearing cervical lordotic curvature. There is slightly increased thoracic kyphosis, some minor flattening of the lumbar lordotic curvature. Lumbar paraspinous muscles show symmetrical on inspection, on palpation shows some moderate tenderness diffusely throughout the upper, middle and lower distribution of the paraspinous muscles bilaterally and also into the lower thoracic paraspinous musculature, firm and tender, but without specific trigger points, without radiation of pain. The patient has good rotational motion of the lumbar spine, both laterally as well as extension and flexion without significant difficulty. No tenderness over the spinous processes, sacrum or sacroiliac regions. EXTREMITIES: Lower extremities show deep tendon reflexes 2+ in the patellar and tendo calcaneus tendons. Motor exam is 5 on a scale of 5 with right dorsiflexion, extension, quadriceps and hamstring flexion and 4/5 on the left. Peripheral pulses are 1+ posterior tibial. No peripheral edema is noted bilaterally. Lower extremities are warm and dry to touch, equal in color and appearance. Patient's left knee shows moderate tenderness with palpation of the medial compartment but good range of motion without crepitus or ratcheting. SKIN: Shows warm and dry, good turgor. No edema. No sores, rashes or bruising throughout. Procedure: Procedure: Options discussed with patient. Patient's old chart was reviewed with her current medication regimen updated current review of systems updated today as well. We will wait for lumbar epidural steroid injection as she is about 1 month prior to eligibility with her insurance provider. Also discussed possible left intra-articular knee joint injection. We will try Medrol Dosepak in the meantime patient was given instructions as well side effects be aware with the medication and will follow-up as scheduled. Medication Injected: Med Injected: None Condition at Discharge: Condition at Discharge: Condition at discharge is stable. LAKEISHA GROSS MD Feb 01, 2020 14:13
== END | disposition home or self-care (01) ==
LOC: PNCL 13:10
PROVIDERS: ATTEND Anesthesiology
DX: M51.16 Intervertebral disc disorders with radiculopathy, lumbar region (principal); M17.12 Unilateral primary osteoarthritis, left knee; I10 Essential (primary) hypertension; Z88.0 Allergy status to penicillin; Z79.82 Long term (current) use of aspirin; Z79.899 Other long term (current) drug therapy
CPT/HCPCS: 99212; G0463

== ENCOUNTER → 2020-02-07 | Outpatient (CLI) | payer BC ==
[~2020-02-07] MED LIST changes: +CONTRAST GIVEN. MC PRN; +IOHEXOL 240 MG/ML 50ML VIAL. PO ONE; +IOHEXOL 300 MG/ML 100ML VIAL. IV ONE; -POTA-163 PO
--- NOTE | 2020-02-07 11:49 | KCIC ---
EXAM: CT Head with and without IV contrast INDICATION: Reason: SURVELLIENCE OF LUNG CANCER, EVALUATE FOR METS / Spl. Instructions: 89mL Omni 300 / History: TECHNIQUE: Multi-detector row CT images were obtained of the head with and without the use of IV contrast. All CT scans performed at this facility utilize dose optimization techniques as appropriate to the exam, including the following: Automated exposure control and adjustment of the mA and/or KV according to patient size (this includes techniques or standardized protocols for targeted exams where dose is indication/reason for exam). IV CONTRAST: Administered COMPARISON: None FINDINGS: BRAIN PARENCHYMA: No evidence of acute intraparenchymal hemorrhage or infarct. No abnormal parenchymal density or mass. No abnormal enhancement. VENTRICLES & EXTRA-AXIAL SPACES: Ventricles are within normal limits. Basilar cisterns are patent. No pathologic extra-axial fluid collection or mass. ORBITS: Orbital contents are unremarkable. SINUSES: Visualized paranasal sinuses and mastoid air cells are clear. OSSEOUS & SOFT TISSUES: Calvarium and skull base are intact. IMPRESSION: Normal CT of the head with and without contrast. EXAM: CT Abdomen and Pelvis with IV contrast INDICATION: Reason: SURVELLIENCE OF LUNG CANCER, EVALUATE FOR METS / Spl. Instructions: 89mL Omni 300 / History: TECHNIQUE: Multi-detector row CT images were acquired from the lung bases through the abdomen and pelvis with the use of IV contrast. Sagittal and coronal images were acquired from the transaxial data. All CT scans performed at this facility utilize dose optimization techniques as appropriate to the exam, including the following: Automated exposure control and adjustment of the mA and/or KV according to patient size (this includes techniques or standardized protocols for targeted exams where dose is indication/reason for exam). IV CONTRAST: Administered ORAL CONTRAST: Administered COMPARISON: Chest CT without IV contrast 04/16/2018 FINDINGS: LOWER CHEST: Centralized Traffic Control Operator image shows an interval decrease in size of the left perihilar lung mass. The cross-sectional images do not included in the field of view. No infiltrates, nodules or masses are evident in the included lung bases. LIVER: Unremarkable BILIARY SYSTEM: Gallbladder is unremarkable. Bile ducts are not dilated. PANCREAS: Unremarkable SPLEEN: Unremarkable ADRENALS: Unremarkable KIDNEYS & URETERS: Unremarkable BLADDER: Unremarkable REPRODUCTIVE ORGANS: Hysterectomy GASTROINTESTINAL: Stomach and small bowel are unremarkable. There is a segment of transverse colon (image 55 of series 10,002) that shows mild wall thickening and pericolonic soft tissue stranding, nonspecific. No upstream bowel dilation is evident. The appendix is normal. MESENTERY/PERITONEUM/RETROPERITONEUM: Unremarkable VASCULAR: Extensive arterial calcifications of the abdominal aorta are present with poor filling of the distal abdominal aorta at the bifurcation, luminal obliteration by dense calcification, resulting in occlusion or critical stenosis of the distal abdominal aorta. Similar findings are present in the bilateral common iliac arteries, with severe narrowing of the bilateral external iliac arteries. LYMPH NODES: No adenopathy OSSEOUS & SOFT TISSUES: Unremarkable IMPRESSION: 1. No evidence of abdominal metastatic disease 2. 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 3. Possible mild focal transverse colitis. Electronically signed by: Louis Roque MD (02/07/2020 11:45 AM) [id number]
== END ==
LOC: KCIC CT 09:41
PROVIDERS: ATTEND Internal Medicine Hematology & Oncology
DX: C34.32 Malignant neoplasm of lower lobe, left bronchus or lung (principal); R29.6 Repeated falls; I70.0 Atherosclerosis of aorta
CPT/HCPCS: 70470; 74177; Q9966; Q9967

== ENCOUNTER → 2020-02-09 | Outpatient (CLI) | payer BC ==
[~2020-02-09] MED LIST changes: -CONTRAST GIVEN. MC PRN; -IOHEXOL 240 MG/ML 50ML VIAL. PO ONE
--- NOTE | 2020-02-09 18:41 | KCIC ---
CT CHEST W/CONTRAST Indication: Lung cancer Technique: Postcontrast CT imaging was performed of the chest, multiplanar reconstruction images submitted. One or more of the following individualized dose reduction techniques were utilized for this examination: 1. Automated exposure control 2. Adjustment of the mA and/or kV according to patient size 3. Use of iterative reconstruction technique. Comparison: September 30, 2019 Findings: There is again round masslike density protruding posteriorly from the left hilar region into the left lower lobe, measures about 4.2 cm transverse by 4 cm AP by 4.5 cm cc as seen previously, overall similar in size and morphology. There is a new enlarged right precarinal node about 1.1 cm short axis dimension. Subcarinal node measures about 0.9 cm short axis dimension, previously about 0.4 cm. There is no new suspicious pulmonary nodularity, infiltrate, pleural or pericardial fluid. There is coronary calcification. Thoracic aortic caliber is within normal limits, scattered plaque. There is atherosclerotic calcification of the visualized abdominal aorta. There is no adrenal nodularity. There has been interval development of superior endplate compression deformity of the T7 vertebral body, no osseous retropulsion. There is right internal jugular port catheter with the tip in the superior vena cava. IMPRESSION: 1. There is increased mediastinal lymphadenopathy, metastatic disease in the differential considerations. Mass protruding posteriorly along the left hilar region to the left lower lobe is similar, no new suspicious pulmonary nodularity. 2. There has interval development of superior T7 compression deformity. 3. There is coronary calcification Electronically signed by: Vahid Waddell MD (02/09/2020 6:38 PM) [facility]
== END ==
LOC: KCIC CT 15:07
PROVIDERS: ATTEND Internal Medicine Hematology & Oncology
DX: C34.32 Malignant neoplasm of lower lobe, left bronchus or lung (principal); R59.0 Localized enlarged lymph nodes; M43.8X4 Other specified deforming dorsopathies, thoracic region; I70.0 Atherosclerosis of aorta
CPT/HCPCS: 71260; Q9967

== ENCOUNTER → 2020-02-23 | Outpatient (CLI) | payer BC ==
[~2020-02-23] MED LIST changes: +BUPIVACAINE MPF 0.25% 10 ML VIAL. ONE; +IOHEXOL 180 MG/ML 10 ML VIAL. ONE; -IOHEXOL 300 MG/ML 100ML VIAL. IV ONE; +POTA-163 PO; +methylPREDNISolone ACETATE 40 MG/ML VIAL. ONE; +methylPREDNISolone ACETATE 80 MG/ML VIAL. ONE
--- NOTE | 2020-02-23 14:08 | PDOC ---
Progress Note - Pain Clinic Date of Service: DOS: DATE: 02/23/20 TIME: 13:59 Diagnosis: Dx: Lumbar radiculopathy with lumbar degenerative disc disease Left knee joint pain with primary osteoarthritis History or Present Illness: HPI: 59-year-old female returns follow-up status post lumbar epidural to injections x3 with good results patient also having some pain in the left knee we discussed this on her last visit in January 2020 and she returns today wishing to proceed with a left intra-articular knee joint injection. Patient reports pain in the knee with walking standing put all of her weight on her left leg and knee most noticeably with climbing stairs or steps. Patient reports right knee still doing well but has some pain as she has been favoring her left leg and standing a lot more on her right leg. Patient reports no new motor or sensory deficits. Patient reports she is restarting chemo in about a week as she has lung cancer and they had found a new mediastinal node on a recent CT scan. Patient meets with her oncologist next week. Patient report her back and right lower extremities are doing much better in the radicular quality but the pain is returning and she would like to proceed with additional lumbar epidural straight injection in the future. I advised her to check with her oncologist regarding further epidural steroid injections during chemotherapy. Physical Exam: VS: Blood pressure is is 119/70 pulse 98 respirations 18 temperature 99.0 F height is 5 feet 5 inches weight is 114 pounds PE: PHYSICAL EXAMINATION: GENERAL: The patient is awake, alert, oriented, appropriate, very pleasant demeanor HEENT: Shows normocephalic, atraumatic. Extraocular movements are intact and symmetrical. Oral cavity: Mucous membranes moist and pink. Dentition is intact. NECK: Shows anterior throat supple without palpable lymphadenopathy noted. Swallow reflex symmetrical. CHEST: Shows normal on inspection. Breath sounds are clear bilaterally, no rales rhonchi or wheezes auscultated. HEART: Shows S1, S2 clear. No murmurs auscultated. ABDOMEN: Soft, nontender, nondistended. No palpable organomegaly is noted. No rebound or guarding demonstrated. BACK: Shows spine grossly in the midline. Normal-appearing cervical lordotic curvature. There is slightly increased thoracic kyphosis, some minor flattening of the lumbar lordotic curvature. Lumbar paraspinous muscles show symmetrical on inspection, on palpation shows some moderate tenderness diffusely throughout the upper, middle and lower distribution of the paraspinous muscles bilaterally without specific trigger points, without radiation of pain. The patient has good rotational motion of the lumbar spine, both laterally as well as extension and flexion without significant difficulty. No tenderness over the spinous processes, sacrum or sacroiliac regions. EXTREMITIES: Lower extremities show deep tendon reflexes 2+ in the patellar and tendo calcaneus tendons. Motor exam is 5 on a scale of 5 with right dorsiflexion, extension, quadriceps and hamstring flexion and 4/5 on the left. Peripheral pulses are 1+ posterior tibial. No peripheral edema is noted bila terally. Lower extremities are warm and dry to touch, equal in color and appearance. Patient's knees shows good range of motion both left and right with some moderate pain in the medial aspect of the right knee with direct palpation over the medial collateral ligament. No ratcheting no crepitus of the joint. SKIN: Shows warm and dry, good turgor. No edema. No sores, rashes or bruising throughout. Procedure: Procedure: Options were discussed with the patient. Patient will chart reviews her current medication regimen updated current review of systems updated today as well. We will proceed with intra-articular injection of the left knee today with fluoroscopic guidance. Risks were discussed including but not limited to b leeding infection possibility of intravascular injection sequelae spread to local anesthetic numbness side effects steroid medication exposure fluoroscopy and poor results regarding pain control. Patient understands wished to proceed. Patient return to clinic in approximately 2 weeks for follow-up, and was counseled as to return appointment activity level and side effects to be aware. Medication Injected: Med Injected: Under sterile prep and drape using C-arm fluoroscopic guidance, patient's left knee was visualized and local anesthetic 1% lidocaine injected in the skin and subcutaneous tissues overlying the medial compartment of the right knee. 22- gauge needle was then inserted under direct fluoroscopic guidance into the knee joint itself. Aspiration showed small amount of synovial fluid contrast was then used to verify position in the joint showing good flow within the joint space itself. At this time mixture of 0.25% bupivacaine 3 cc and 80 mg Depo- Medrol was injected at the joint. Needle was removed sterile bandage was applied. Patient tolerated procedure well had no complications. Condition at Discharge: Condition at Discharge: Condition at discharge stable patient on the procedure well had no complications GROSS,LAKEISHA N MD Feb 23, 2020 14:08
== END | disposition home or self-care (01) ==
LOC: PNCL 12:59
PROVIDERS: ATTEND Anesthesiology
DX: M17.12 Unilateral primary osteoarthritis, left knee (principal); M51.16 Intervertebral disc disorders with radiculopathy, lumbar region; I10 Essential (primary) hypertension; E78.5 Hyperlipidemia, unspecified; J44.9 Chronic obstructive pulmonary disease, unspecified; F17.210 Nicotine dependence, cigarettes, uncomplicated; Z88.0 Allergy status to penicillin; Z79.82 Long term (current) use of aspirin; Z79.899 Other long term (current) drug therapy
CPT/HCPCS: 20610; 77002; J1040; J3490; Q9965; J1030

== ENCOUNTER 2020-03-08 13:29 | Emergency (ER) | payer BC ==
[~2020-03-08] VITALS: Ht 165.1 cm; Wt 50.0 kg
[~2020-03-08 13:29] MED LIST changes: -BUPIVACAINE MPF 0.25% 10 ML VIAL. ONE; -IOHEXOL 180 MG/ML 10 ML VIAL. ONE; -POTA-163 PO; -methylPREDNISolone ACETATE 40 MG/ML VIAL. ONE; -methylPREDNISolone ACETATE 80 MG/ML VIAL. ONE
[2020-03-08] MEDS ORDERED: IV NORMAL SALINE 1000ML BAG 1,000 ML IV ONE ×2 (14:45→16:30)
--- NOTE | 2020-03-08 15:09 | PHYS DOC ---
Past Medical History Past Medical History: Cancer, Hypertension Past Surgical History: Tonsillectomy, Tubal ligation Smoking Status: Current Every Day Smoker Alcohol Use: None Drug Use: None General Adult EDM: Chief Complaint: DIARRHEA AND GENERALIZED WEAKNESS HPI: HPI: This is a pleasant 59-year-old female presenting with diarrhea for the past week after getting chemotherapy for lung cancer. She has been feeling generally weak. She denies any vomiting but feels nauseous with large volumes watery diarrhea. She does not have any fevers that she has felt at home. She denies any rashes. She denies any pain. Location GI tract. Duration intermittent. Review of systems negative for chest pain shortness of breath fevers chills. All other review of systems negative. ED course: 59-year-old female presenting with watery stools after chemotherapy about 5 days ago. On arrival she is mildly hypotensive and tachycardic likely from hypovolemia. IV started. A liter of normal saline initiated. Blood work ordered. Abdomen is soft and nontender. IV fluids administered in the emergency department. Potassium is low. Otherwise BUN mildly elevated. CBC within normal limits. On reexamination the patient is feeling much better. We will discharge the patient with oral potassium repletion at home to follow-up with her doctor in 1 to 2 days. Heart Score: Risk Factors: Risk Factors: DM, Current or recent (<one month) smoker, HTN, HLP, family history of CAD, obesity. Risk Scores: Score 0 - 3: 2.5% MACE over next 6 weeks - Discharge Home Score 4 - 6: 20.3% MACE over next 6 weeks - Admit for Clinical Observation Score 7 - 10: 72.7% MACE over next 6 weeks - Early Invasive Strategies Current Medications: Current Medications Medications (Trade) Dose Ordered Sig/Mark Start Time Stop Time Status Last Admin Dose Admin Sodium Chloride 1,000 ml @ 1,000 mls/hr 1X ONCE 03/08/20 14:45 03/08/20 15:44 Allergies: Allergies: Allergies Coded Allergies Type Severity Reaction Last Updated Verified Penicillins Allergy Intermediate Hives 11/25/17 Yes Physical Exam: PE: Constitutional: Well developed, well nourished, chronically ill-appearing without any acute distress HENT: Normocephalic, atraumatic, bilateral external ears normal, oropharynx moist, no oral exudates, nose normal. [] Eyes: PERRLA, EOMI, conjunctiva normal, no discharge. [] Neck: Normal range of motion, no tenderness, supple, no stridor. [] Cardiovascular:Heart rate regular rhythm, no murmur [] Lungs & Thorax: Bilateral breath sounds clear to auscultation [] Abdomen: Bowel sounds normal, soft, no tenderness, no masses, no pulsatile masses. [] No rebound tenderness or guarding. Skin: Warm, dry, no erythema, no rash. [] Back: No tenderness, no CVA tenderness. [] Extremities: No tenderness, no cyanosis, no clubbing, ROM intact, no edema. [] Neurologic: Alert and oriented X 3, normal motor function, normal sensory function, no focal deficits noted. [] Psychologic: Affect normal, judgement normal, mood normal. [] Current Patient Data: Vital Signs: Vital Signs Date Time Temp Pulse Resp B/P (MAP) Pulse Ox O2 Delivery O2 Flow Rate FiO2 03/08/20 14:09 98.4 123 18 82/60 (67) 97 Room Air 98.4 EKG: EKG: [] Radiology/Procedures: Radiology/Procedures: [] Course & Med Decision Making: Course & Med Decision Making Pertinent Labs and Imaging studies reviewed. (See chart for details) [] Dragon Disclaimer: Dragon Disclaimer: This electronic medical record was generated, in whole or in part, using a voice recognition dictation system. Departure Departure Impression: Primary Impression: Dehydration Additional Impressions: Hypokalemia Diarrhea Disposition: 01 HOME, SELF-CARE Condition: STABLE Referrals: MANJULA BYRD MD (PCP) Patient Instructions: Diarrhea Scripts Potassium Chloride (Potassium Chloride) 20 Meq Tablet.er 20 MEQ PO DAILY for 7 Days, #7 TAB.SR 0 Refills Prov: MARIE FUENTES MD 03/08/20 Justicifation of Admission Dx: Justifications for Admission: Justification of Admission Dx: N/A MARIE FUENTES MD Mar 08, 2020 15:09
[2020-03-08] MEDS ORDERED: ONDANSETRON PF 4 MG/2 ML VIAL. ONE (15:24)
[2020-03-08 15:28] LABS: BASO % 1 % (0-3); EOS # 0.1 x10^3/uL (0.0-0.7); EOS % 2 % (0-3); HEMOGLOBIN 14.2 g/dL (12.0-15.5); LYMPH # 1.2 x10^3/uL (1.0-4.8); LYMPH % 22 % (24-48); MEAN CORPUSCULAR HEMOGLOBIN 31 pg (25-35); MEAN CORPUSCULAR HGB CONC 34 g/dL (31-37); MEAN CORPUSCULAR VOLUME 93 fL (79-100); MONO # 0.1 x10^3/uL (0.0-1.1); MONO % 1 % (0-9); NEUT # 4.2 x10^3/uL (1.8-7.7); NEUT % 74 % (31-73); PLATELET COUNT 133 x10^3/uL (140-400); RED BLOOD COUNT 4.54 x10^6/uL (3.50-5.40); RED CELL DISTRIBUTION WIDTH 14.1 % (11.5-14.5); WHITE BLOOD COUNT 5.6 x10^3/uL (4.0-11.0)
[2020-03-08] MEDS ORDERED: ONDANSETRON PF 4 MG/2 ML VIAL. IVP ONE (15:30)
[2020-03-08 15:37] LABS: CALCIUM 9.2 mg/dL (8.5-10.1); CREATININE 0.8 mg/dL (0.6-1.0); GFR 73.2
[2020-03-08 15:43] LABS: ALBUMIN 3.3 g/dL (3.4-5.0); ALBUMIN/GLOBULIN RATIO 0.9 (1.0-1.7); TOTAL BILIRUBIN 0.7 mg/dL (0.2-1.0); TOTAL PROTEIN 6.8 g/dL (6.4-8.2)
[2020-03-08] MEDS ORDERED: POTASSIUM CHLORIDE 20MEQ 100 ML IV ONE (16:15)
[2020-03-08] MEDS ORDERED: HYDROcodone/APAP 5/325MG 1 TAB TABLET PO ONE (16:30)
[2020-03-08] MEDS ORDERED: POTA-163 PO (17:15)
[2020-03-08] MEDS ORDERED: IV NORMAL SALINE 500ML BAG 500 ML IV ONE (18:00)
[2020-03-08 18:41] VITALS: BP 121/56
[2020-03-08 19:03] LABS: BILIRUBIN,URINE NEGATIVE (NEG); CLARITY,URINE CLEAR; COLOR,URINE YELLOW; NITRITE,URINE NEGATIVE (NEG); PH,URINE 5.5 (<5.0-8.0); PROTEIN,URINE NEGATIVE (NEG-TRACE); UROBILINOGEN,URINE 0.2 mg/dL (0.2 mg/dL)
[2020-03-08 19:05] LABS: BACTERIA,URINE FEW /HPF (0-FEW); HYALINE CASTS, URINE FEW /HPF; RBC,URINE 0 /HPF (0-2); SQUAMOUS EPITHELIAL CELL,UR MOD /LPF; WBC,URINE OCC /HPF (0-4)
== END 2020-03-08 19:20 | disposition home or self-care (01) ==
LOC: ER 13:29
DX: E86.0 Dehydration (principal); E87.6 Hypokalemia; R19.7 Diarrhea, unspecified; I10 Essential (primary) hypertension; F17.200 Nicotine dependence, unspecified, uncomplicated; Z98.51 Tubal ligation status; Z88.0 Allergy status to penicillin
CPT/HCPCS: 36415; 80053; 81001; 83690; 85025; 96361; 96365; 96366; 96375; 99285; J3480; J7030; J7040; J2405

== ENCOUNTER → 2020-03-22 | Outpatient (CLI) | payer BC ==
[2020-03-08 18:41] VITALS: BP 121/56
[~2020-03-22] MED LIST changes: +DEXA0.5T PO; +IOHEXOL 180 MG/ML 10 ML VIAL. ONE; +ONDA4TAB7 PO; +POTA-163 PO; +methylPREDNISolone ACETATE 40 MG/ML VIAL. ONE; +methylPREDNISolone ACETATE 80 MG/ML VIAL. ONE
--- NOTE | 2020-03-22 11:52 | PDOC ---
Progress Note - Pain Clinic Date of Service: DOS: DATE: 03/22/20 TIME: 11:47 Diagnosis: Dx: Lumbar radiculopathy with lumbar degenerative disc disease Left knee joint pain with osteo arthritis History or Present Illness: HPI: 59-year-old female returns follow-up status post lumbar epidural steroid injections x3 and left knee joint injection last seen February 23, 2020 patient did very well with the back injections about 75% improvement overall the pain is returning down the low back and the bilateral lower extremities somewhat worse on the left and the right posterior gluteus posterior lateral thigh lateral anterior thigh anterior medial thigh into the calves and lower legs with some cold sensation in the left foot especially in the left lateral and posterior thigh and calf patient reports it is worse with walking standing changing positions better with sitting or laying down spine awaken her from sleep about every 7 hours initially she was a much better with distance walking doing house activities sleeping better at night try with greater ease and comfort now the pain is returning over the past 3 to 4 weeks to a 10 on scale 10 is worst average and least over the last week. Patient reports no new motor or sensory deficits no new bowel or bladder incontinence patient does report that she is starting immunotherapy again and chemotherapy for previous lung cancer diagnosis. She describes the pain as aching sharp tight shooting cramping stabbing tingling or burning with some cold sensation in the left foot. Physical Exam: VS: Pressure is 117/67 pulse 121 respirations 18 temperature 99.2 F height is 5 foot 5 inches weight is 101 pounds PE: PHYSICAL EXAMINATION: GENERAL: The patient is awake, alert, oriented, appropriate, very pleasant demeanor HEENT: Shows normocephalic, atraumatic. Extraocular movements are intact and symmetrical. Oral cavity: Mucous membranes moist and pink. NECK: Shows anterior throat supple without palpable lymphadenopathy noted. Swallow reflex symmetrical. CHEST: Shows normal on inspection. Breath sounds are clear bilaterally, distant but no rales rhonchi or wheezes auscultated bilaterally. HEART: Shows S1, S2 clear. No murmurs auscultated. ABDOMEN: Soft, nontender, nondistended. No palpable organomegaly is noted. No rebound or guarding demonstrated. BACK: Shows spine grossly in the midline. Normal-appearing cervical lordotic curvature. There is slightly increased thoracic kyphosis, some minor flattening of the lumbar lordotic curvature. Lumbar paraspinous muscles show symmetrical on inspection, on palpation shows some moderate tenderness diffusely throughout the upper, middle and lower distribution of the paraspinous muscles bilaterally, without specific trigger points, without radiation of pain. The patient has good rotational motion of the lumbar spine, both laterally as well as extension and flexion without significant difficulty. No tenderness over the spinous processes, sacrum or sacroiliac regions. EXTREMITIES: Lower extremities show deep tendon reflexes 2+ in the patellar and tendo calcaneus tendons. Motor exam is 5 on a scale of 5 with right dorsiflexion, extension, quadriceps and hamstring flexion and 4/5 on the left. Peripheral pulses are 1+ posterior tibial. No peripheral edema is noted bilaterally. Lower extremities are warm and dry to touch, equal in color and appearance. SKIN: Shows warm and dry, good turgor. No edema. No sores, rashes or bruising throughout. Procedure: Procedure: Options were discussed with the patient. Patient's old chart was reviewed medication regimen updated her review of systems updated today as well. We will proceed with a first in a series lumbar epidurals or injections today with fluoroscopic guidance. Risks were discussed including but not limited to: Bleeding, infection, possibility of epidural hematoma and subsequent neurological compromise, dural puncture, headaches, spinal cord and/or nerve damage, side effects of steroid medication, and poor results regarding pain control. Patient understands wished to proceed. Patient return to clinic in approximate 2 weeks for follow-up was counseled as return appointment activity level and side effects to be aware of. Medication Injected: Med Injected: Procedure is lumbar epidural steroid injection under local anesthetic using sterile prep and drape at the L4-5 level using C-arm fluoroscopic guidance in both AP and lateral views medications injected is 120 mg Depo-Medrol + 10 mL preservative-free normal saline and 2 mL contrast- condition at discharge is stable patient tolerated procedure well had no complications. Condition at Discharge: Condition at Discharge: Condition at discharge is stable, patient tolerated the procedure well had no complications. LAKEISHA GROSS MD Mar 22, 2020 11:52
== END ==
LOC: PNCL 11:14
PROVIDERS: ATTEND Anesthesiology
DX: M51.16 Intervertebral disc disorders with radiculopathy, lumbar region (principal); M17.12 Unilateral primary osteoarthritis, left knee; I10 Essential (primary) hypertension; E78.5 Hyperlipidemia, unspecified; J44.9 Chronic obstructive pulmonary disease, unspecified; F17.210 Nicotine dependence, cigarettes, uncomplicated; Z88.0 Allergy status to penicillin; Z79.82 Long term (current) use of aspirin; Z79.899 Other long term (current) drug therapy; Z98.51 Tubal ligation status
CPT/HCPCS: 62323; J1030; J1040; Q9965

== ENCOUNTER 2020-05-24 14:14 | Inpatient (IN) | payer BC ==
[~2020-05-24] VITALS: Ht 165.1 cm; Wt 58.4 kg
[~2020-05-24 14:14] MED LIST changes: -IOHEXOL 180 MG/ML 10 ML VIAL. ONE; -methylPREDNISolone ACETATE 40 MG/ML VIAL. ONE; -methylPREDNISolone ACETATE 80 MG/ML VIAL. ONE
--- NOTE | 2020-05-24 15:03 | ED.ADGEN ---
Past Medical History Past Medical History: Cancer, Hypertension, Other Additional Past Medical Histor: CHRONIC PAIN,NEUROPATHY,SCIATICA,LUNG CA Past Surgical History: Tonsillectomy, Tubal ligation Additional Past Surgical Histo: PORT-A-CATH Smoking Status: Current Every Day Smoker Additional Information: 0.5 PPD Alcohol Use: None Drug Use: None General Adult EDM: Chief Complaint: DEHYDRATION HPI: HPI: Patient is a 59 year old female who arrives ambulatory to the emergency department complaining of generalized weakness with nausea and vomiting. Patient reports she has had multiple episodes of nausea and vomiting since of this week. Patient states she felt as if this was going to begin on Thursday after having chemotherapy late last week. Patient has a history of breast cancer for which she receives chemotherapy in both oral and IV forms. Patient states she is fearful that she may be dehydrated and frequently requires IV fluids to prevent dehydration. Patient states despite having nausea and vomiting she is not had any abdominal pain or diarrhea. She further denies any chest pain, fevers or shortness of air. She states she simply just feels globally weak. She is awake, alert and frail yet nontoxic appearing. Review of Systems: Review of Systems: Constitutional: Generalized fatigue and weakness. Denies fever or chills. [] Eyes: Denies change in visual acuity. [] HENT: Denies nasal congestion or sore throat. [] Respiratory: Denies cough or shortness of breath. [] Cardiovascular: Denies chest pain or edema. [] GI: Reports nausea and vomiting. Denies abdominal pain, bloody stools or diarrhea. [] : Denies dysuria. [] Musculoskeletal: Denies back pain or joint pain. [] Integument: Denies rash. [] Neurologic: Reports generalized weakness. Denies headache, focal weakness or sensory changes. [] Endocrine: Denies polyuria or polydipsia. [] Lymphatic: Denies swollen glands. [] Psychiatric: Denies depression or anxiety. [] Current Medications: Current Medications Medications (Trade) Dose Ordered Sig/Mark Start Time Stop Time Status Last Admin Dose Admin Levofloxacin/ Dextrose 150 ml @ 100 mls/hr 1X ONCE 05/24/20 15:00 05/24/20 16:29 DC 05/24/20 15:43 100 MLS/HR Sodium Chloride 1,000 ml @ 1,000 mls/hr 1X ONCE 05/24/20 15:30 05/24/20 16:29 DC 05/24/20 15:43 1,000 MLS/HR Allergies: Allergies: Allergies Coded Allergies Type Severity Reaction Last Updated Verified Penicillins Allergy Intermediate Hives 11/25/17 Yes Physical Exam: PE: Constitutional: Frail-appearing. well nourished, no acute distress, non-toxic appearance. [] HENT: Normocephalic, atraumatic, bilateral external ears normal, oropharynx moist, no oral exudates, nose normal. [] Eyes: PERRLA, EOMI, conjunctiva normal, no discharge. [] Neck: Normal range of motion, no tenderness, supple, no stridor. [] Cardiovascular: Tachycardia. no murmur [] Lungs & Thorax: Bilateral breath sounds clear to auscultation [] Abdomen: Bowel sounds normal, soft, no tenderness, no masses, no pulsatile masses. [] Skin: Warm, dry, no erythema, no rash. [] Back: No tenderness, no CVA tenderness. [] Extremities: No tenderness, no cyanosis, no clubbing, ROM intact, no edema. [] Neurologic: Alert and oriented X 3, normal motor function, normal sensory function, no focal deficits noted. [] Psychologic: Affect normal, judgement normal, mood normal. [] Current Patient Data: Labs: Laboratory Tests Test 05/24/20 14:46 05/24/20 15:10 White Blood Count 7.1 x10^3/uL (4.0-11.0) Red Blood Count 3.08 x10^6/uL (3.50-5.40) L Hemoglobin 9.9 g/dL (12.0-15.5) L Hematocrit 29.4 % (36.0-47.0) L Mean Corpuscular Volume 95 fL (79-100) Mean Corpuscular Hemoglobin 32 pg (25-35) Mean Corpuscular Hemoglobin Concent 34 g/dL (31-37) Red Cell Distribution Width 16.3 % (11.5-14.5) H Platelet Count 296 x10^3/uL (140-400) Neutrophils (%) (Auto) 86 % (31-73) H Lymphocytes (%) (Auto) 12 % (24-48) L Monocytes (%) (Auto) 1 % (0-9) Eosinophils (%) (Auto) 1 % (0-3) Basophils (%) (Auto) 0 % (0-3) Neutrophils # (Auto) 6.1 x10^3/uL (1.8-7.7) Lymphocytes # (Auto) 0.8 x10^3/uL (1.0-4.8) L Monocytes # (Auto) 0.1 x10^3/uL (0.0-1.1) Eosinophils # (Auto) 0.1 x10^3/uL (0.0-0.7) Basophils # (Auto) 0.0 x10^3/uL (0.0-0.2) Segmented Neutrophils % 88 % (35-66) H Lymphocytes % 9 % (24-48) L Monocytes % 2 % (0-10) Eosinophils % 1 % (0-5) Platelet Estimate Adequate (ADEQUATE) Sodium Level 137 mmol/L (136-145) Potassium Level 3.1 mmol/L (3.5-5.1) L Chloride Level 96 mmol/L (98-107) L Carbon Dioxide Level 27 mmol/L (21-32) Anion Gap 14 (6-14) Blood Urea Nitrogen 27 mg/dL (7-20) H Creatinine 0.9 mg/dL (0.6-1.0) Estimated GFR (Cockcroft-Gault) 63.9 BUN/Creatinine Ratio 30 (6-20) H Glucose Level 151 mg/dL (70-99) H Calcium Level 8.6 mg/dL (8.5-10.1) Total Bilirubin 0.9 mg/dL (0.2-1.0) Aspartate Amino Transferase (AST) 20 U/L (15-37) Alanine Aminotransferase (ALT) 8 U/L (14-59) L Alkaline Phosphatase 75 U/L (46-116) Troponin I Quantitative < 0.017 ng/mL (0.000-0.055) Total Protein 6.8 g/dL (6.4-8.2) Albumin 2.9 g/dL (3.4-5.0) L Albumin/Globulin Ratio 0.7 (1.0-1.7) L Lipase 112 U/L (73-393) Lactic Acid Level 1.8 mmol/L (0.4-2.0) Laboratory Tests 05/24/20 14:46 Laboratory Tests 05/24/20 14:46 Vital Signs: Vital Signs Date Time Temp Pulse Resp B/P (MAP) Pulse Ox O2 Delivery O2 Flow Rate FiO2 05/24/20 16:00 110 23 101/51 (68) 97 Room Air 05/24/20 14:24 98.3 98.3 EKG: EKG: [] Heart Score: Risk Factors: Risk Factors: DM, Current or recent (<one month) smoker, HTN, HLP, family h istory of CAD, obesity. Risk Scores: Score 0 - 3: 2.5% MACE over next 6 weeks - Discharge Home Score 4 - 6: 20.3% MACE over next 6 weeks - Admit for Clinical Observation Score 7 - 10: 72.7% MACE over next 6 weeks - Early Invasive Strategies Radiology/Procedures: Radiology/Procedures: [] Impression: [facility] [address] [place] [address] IMAGING REPORT Signed PATIENT: RITESH HOWARD LACCOUNT: [id number] : 1960 LOCATION: ER AGE: 59 SEX: F EXAM STATUS: REG ER ORD. PHYSICIAN: GERRI ARRIAZA DO REASON: pain/vomiting, HX LUNG CA PROCEDURE: ACUTE ABDOMEN SERIES Exam: Abdomen one view INDICATION: Pain, vomiting TECHNIQUE: Frontal view of chest with upright and supine views the abdomen Comparisons: None FINDINGS: Right anterior chest wall port with catheter tip at the atrial caval junction. The cardiomediastinal silhouette and pulmonary vessels are within normal limits. The lung and pleural spaces are clear. Air and stool are noted throughout the colon to level the rectum in a obstructive bowel gas pattern. No free air. No suspicious masses or calcifications. Visualized osseous structures are unremarkable. IMPRESSION: 1. No acute cardiopulmonary process. 2. Nonobstructive bowel gas pattern. Electronically signed by: Luis May MD (05/24/2020 3:47 PM) [facility] DICTATED and SIGNED BY: LUIS MAY MD DATE: 05/24/20 [id number] 0 Course & Med Decision Making: Course & Med Decision Making Pertinent Labs and Imaging studies reviewed. (See chart for details) The patient remains awake, alert and in no acute distress. Patient's blood pressure has improved slightly since her arrival. Nonetheless she does have brock th laboratory findings as well as clinical findings of dehydration. Given this finding I do believe the patient warrants admission for continued IV hydration. The patient will be admitted to her primary care physician Dr. Manjula Byrd for ongoing medical management. The patient understands this and has agreed to stay. She is nontoxic-appearing and stable for transport to the floor. Dragon Disclaimer: Dragon Disclaimer: This electronic medical record was generated, in whole or in part, using a voice recognition dictation system. Departure Departure Impression: Primary Impression: Dehydration Additional Impressions: Acute prerenal azotemia History of lung cancer Hypokalemia Disposition: ADMITTED INPT THIS HOSP Admitting Physician: Manjula Byrd Condition: IMPROVED Referrals: MANJULA BYRD MD (PCP) Problem Qualifiers GERRI ARRIAZA DO May 24, 2020 15:03
[2020-05-24 15:07] LABS: BASO % 0 % (0-3); EOS # 0.1 x10^3/uL (0.0-0.7); EOS % 1 % (0-3); HEMATOCRIT 29.4 % (36.0-47.0); HEMOGLOBIN 9.9 g/dL (12.0-15.5); LYMPH # 0.8 x10^3/uL (1.0-4.8); LYMPH % 12 % (24-48); MEAN CORPUSCULAR HEMOGLOBIN 32 pg (25-35); MEAN CORPUSCULAR HGB CONC 34 g/dL (31-37); MEAN CORPUSCULAR VOLUME 95 fL (79-100); MONO # 0.1 x10^3/uL (0.0-1.1); MONO % 1 % (0-9); NEUT # 6.1 x10^3/uL (1.8-7.7); NEUT % 86 % (31-73); PLATELET COUNT 296 x10^3/uL (140-400); RED BLOOD COUNT 3.08 x10^6/uL (3.50-5.40); RED CELL DISTRIBUTION WIDTH 16.3 % (11.5-14.5); WHITE BLOOD COUNT 7.1 x10^3/uL (4.0-11.0)
[2020-05-24 15:15] LABS: CALCIUM 8.6 mg/dL (8.5-10.1); CREATININE 0.9 mg/dL (0.6-1.0); GFR 63.9; POTASSIUM 3.1 mmol/L (3.5-5.1)
[2020-05-24 15:21] LABS: ALBUMIN 2.9 g/dL (3.4-5.0); ALBUMIN/GLOBULIN RATIO 0.7 (1.0-1.7); TOTAL BILIRUBIN 0.9 mg/dL (0.2-1.0); TOTAL PROTEIN 6.8 g/dL (6.4-8.2)
[2020-05-24] MEDS ORDERED: IV NORMAL SALINE 1000ML BAG 1,000 ML IV ONE (15:30)
--- NOTE | 2020-05-24 15:50 | RAD ---
Exam: Abdomen one view INDICATION: Pain, vomiting TECHNIQUE: Frontal view of chest with upright and supine views the abdomen Comparisons: None FINDINGS: Right anterior chest wall port with catheter tip at the atrial caval junction. The cardiomediastinal silhouette and pulmonary vessels are within normal limits. The lung and pleural spaces are clear. Air and stool are noted throughout the colon to level the rectum in a obstructive bowel gas pattern. No free air. No suspicious masses or calcifications. Visualized osseous structures are unremarkable. IMPRESSION: 1. No acute cardiopulmonary process. 2. Nonobstructive bowel gas pattern. Electronically signed by: Luis England MD (05/24/2020 3:47 PM) [facility]
[2020-05-24 15:52] LABS: % EOS 1 % (0-5); % LYMPHS 9 % (24-48); % MONOS 2 % (0-10); % SEGS 88 % (35-66)
[2020-05-24 15:54] LABS: PLT ESTIMATE ADEQUATE (ADEQUATE)
[2020-05-24] MEDS ORDERED: ONDANSETRON PF 4 MG/2 ML VIAL. IV PRN (16:30)
[2020-05-24] MEDS ORDERED: MORPHINE SULFATE 4 MG/ML VIAL. IV PRN (16:30)
[2020-05-24] MEDS: IV NORMAL SALINE 1000ML BAG 1,000 ML IV SCH (17:06)
[2020-05-24 18:57] LABS: BILIRUBIN,URINE NEGATIVE (NEG); CLARITY,URINE CLEAR; COLOR,URINE YELLOW; NITRITE,URINE NEGATIVE (NEG); PH,URINE 6.5 (<5.0-8.0); PROTEIN,URINE NEGATIVE (NEG-TRACE); UROBILINOGEN,URINE 0.2 mg/dL (0.2 mg/dL)
[2020-05-24 19:04] LABS: HYALINE CASTS, URINE MANY /HPF
[2020-05-24 19:06] LABS: BACTERIA,URINE FEW /HPF (0-FEW); GRANULAR CASTS,URINE FEW /HPF
[2020-05-24] MEDS ORDERED: ONDANSETRON ODT 4 MG TAB.RAPDIS. PO PRN (22:00)
[2020-05-24] MEDS: GABAPENTIN 300 MG CAPSULE. PO SCH (22:22)
[2020-05-24] MEDS: HYDROcodone/APAP 7.5/325MG 1 TAB TABLET PO PRN (22:22)
[2020-05-24] MEDS: DICLOFENAC SODIUM 1% TOPICAL GEL 100GM TUBE. TP SCH (23:14)
[2020-05-24 23:49] VITALS: BP 108/57
[2020-05-25] MEDS: IV NORMAL SALINE 1000ML BAG 1,000 ML IV SCH ×2 (01:01→08:30)
[2020-05-25 03:45] VITALS: BP 124/54
[2020-05-25] MEDS: HYDROcodone/APAP 7.5/325MG 1 TAB TABLET PO PRN ×3 (04:24→20:27)
[2020-05-25 07:00] VITALS: BP 97/48
[2020-05-25] MEDS ORDERED: DULoxetine HCL 30 MG CAPSULE.DR PO SCH ×2 (09:00→21:00)
[2020-05-25] MEDS: DICLOFENAC SODIUM 1% TOPICAL GEL 100GM TUBE. TP SCH ×4 (09:00→20:29)
[2020-05-25] MEDS ORDERED: NON FORMULARY ITEM (Duloxetine Hcl (Cymbalta) 1 CAP) PO SCH (09:00)
--- NOTE | 2020-05-25 09:08 | PDOC ---
Provider Note Date of Service: DATE: 05/25/20 TIME: 09:08 Provider Note dictated Justifications for Admission Other Justification MANJULA BYRD MD May 25, 2020 09:08
[2020-05-25] MEDS: CELECOXIB 100 MG CAPSULE. PO SCH (10:14)
[2020-05-25] MEDS: POTASSIUM CHLORIDE 20 MEQ TABLET.ER. PO SCH (10:14)
[2020-05-25] MEDS: POTASSIUM CL 20MEQ D5-0.45NACL 1,000 ML IV SCH ×2 (10:15→20:30)
[2020-05-25 11:00] VITALS: BP 93/51
--- NOTE | 2020-05-25 11:39 | NUR ---
SW following. Discussed with RN, pt from home, room air, cardiac diet. Pt had chemo on 05/18/2020. RN advised no SW needs at this time and anticipates pt may discharge today. SW will continue to follow.
--- NOTE | 2020-05-25 13:33 | HP ---
ADMIT DATE: 05/25/2020 CHIEF COMPLAINT: Weakness, nausea and vomiting. HISTORY OF PRESENT ILLNESS: A 59-year-old white female who has been treated for stage IV lung cancer, nonspecific type per [facility] and lately with her weekly chemotherapy has been getting nausea and vomiting. She last had therapy 1 week ago and has had continued weakness with nausea and vomiting since then. She also has ongoing symptoms of fairly significant peripheral neuropathy, which is believed to be related to either the current treatment of these conditions, outpatient labs are not available. She takes gabapentin and Cymbalta for this condition. PAST MEDICAL HISTORY: See old chart for all records. MEDICATIONS: Included. ALLERGIES: No allergies are known. SOCIAL HISTORY: She is , nonsmoker, nondrinker to my knowledge, employed but disabled now. FAMILY HISTORY: Unremarkable. REVIEW OF SYSTEMS: No other complaints. OBJECTIVE: ENT: Mildly decreased oral moisture; otherwise, unremarkable. NECK: No masses, nodes or bruits. LUNGS: Clear, without tachypnea. CARDIOVASCULAR: Regular rate, mild tachycardia. No murmurs heard. ABDOMEN: Benign, soft and nontender. EXTREMITIES: Reasonably good pedal and radial pulses, 2+ clubbing is noted. No acute skin or joint changes. NEUROLOGIC: It is very hyperesthetic and dysesthetic in both lower extremities from below the knees down. She is generally weak in the lower extremities, particularly in the calf and dorsiflexors of both feet. Reflexes are equally diminished, but present. She is alert, responsive, oriented. Gait was not tested. Upper extremities appear to be normal. GENITOURINARY AND RECTAL: Deferred. ASSESSMENT: 1. Nausea, vomiting, dehydration secondary to IV chemotherapy. 2. Stage IV lung cancer, currently being monitored and treated at [facility]. 3. Symptoms of severe peripheral neuropathy, likely due to paraneoplastic or drug-induced. 4. Hypokalemia secondary to nausea and vomiting. 5. Chronic back pain. PLAN: Continue IV fluids with potassium supplementation. Check her B12 and x-ray of the left foot as she has had trauma to that fall recently. MANJULA BYRD MD DR: JEMAL/lisa JOB#: [id number] / [id number]
[2020-05-25 15:00] VITALS: BP 90/56
--- NOTE | 2020-05-25 15:05 | RAD ---
XR FOOT_LEFT 2 VIEWS 05/25/2020 1:43 PM INDICATION: Pain in the great toe COMPARISON: None available. TECHNIQUE: 2 views of the left foot are provided. FINDINGS/ IMPRESSION: 1. No acute fracture or dislocation. 2. Joint spaces are maintained. 3. Soft tissue swelling of the first digit. No subcutaneous gas or osseous erosion. No radiopaque for eign density. 4. Mild osteopenia. Electronically signed by: Adele Crow MD (05/25/2020 3:03 PM) [facility]
[2020-05-25 19:00] VITALS: BP 105/52
[2020-05-25] MEDS: GABAPENTIN 300 MG CAPSULE. PO SCH (20:27)
[2020-05-25 23:00] VITALS: BP 108/51
[2020-05-26] MEDS: HYDROcodone/APAP 7.5/325MG 1 TAB TABLET PO PRN ×2 (02:50→08:55)
[2020-05-26 03:00] VITALS: BP 132/63
[2020-05-26 07:00] VITALS: BP 105/54
[2020-05-26] MEDS: POTASSIUM CHLORIDE 20 MEQ TABLET.ER. PO SCH (08:06)
[2020-05-26] MEDS: CELECOXIB 100 MG CAPSULE. PO SCH (08:06)
[2020-05-26] MEDS: DICLOFENAC SODIUM 1% TOPICAL GEL 100GM TUBE. TP SCH (08:07)
[2020-05-26] MEDS ORDERED: DULoxetine HCL 30 MG CAPSULE.DR PO SCH (09:00)
--- NOTE | 2020-05-26 11:15 | PDOC ---
Provider Note Date of Service: DATE: 05/26/20 TIME: 11:13 Provider Note [id number] Justifications for Admission Other Justification MANJULA BYRD MD May 26, 2020 11:15
--- NOTE | 2020-05-26 11:24 | DS ---
DATE OF DISCHARGE: 05/26/2020 HOSPITAL SUMMARY: A 59-year-old white female with chemotherapy-induced nausea, vomiting, dehydration, hypokalemia with potassium of 3.1. B12 was normal at 676. Chemistry profile and CBC unremarkable except for mild anemia and white count was reduced from chemotherapy. She was given IV fluids, IV and oral potassium, is feeling much better at this time. Foot x-ray was negative for trauma. She is comfortable to be followed as an outpatient. FINAL DIAGNOSES: 1. Chemotherapy-induced nausea, vomiting, and dehydration. 2. Hypokalemia secondary to nausea and vomiting. 3. Peripheral neuropathy, likely secondary to chemotherapy. OPERATIONS, PROCEDURES, COMPLICATIONS: None. CONSULTATIONS: None. DISPOSITION: All meds remain the same at home. We will explore gabapentin in higher doses for her neuropathy symptoms when we see her in 6 days in the office. Chemotherapy per Dr. Pickard at PROGNOSIS: Guarded. MANJULA BYRD MD DR: JEMAL/lisa JOB#: [id number] / [id number]
[2020-05-26] MEDS ORDERED: HEPARIN PF 500 UNIT/5 ML DISP.SYRIN. IVP ONE (11:30)
--- NOTE | 2020-05-26 11:50 | NUR ---
Discharge Note: RITESH HOWARD Discharge instructions and discharge home medications reviewed with Patient and a copy given. All questions have been answered and understanding verbalized. The following instructions and handouts were given: discharge instructions, education and follow up recommendations. Discontinued lines and drains: Port A Cath de-accessed intact. Patient discharged to Home or Self Care with Spouse via Wheelchair off unit by RN.
== END 2020-05-26 11:50 | disposition home or self-care (01) | DRG 74 ==
LOC: ER 14:14 → ED HOLD 16:30 → 5 NORTH 21:03
PROVIDERS: ADMIT Family Medicine; ATTEND Family Medicine
DX: G62.0 Drug-induced polyneuropathy (principal); E86.0 Dehydration; G89.29 Other chronic pain; I10 Essential (primary) hypertension; F17.210 Nicotine dependence, cigarettes, uncomplicated; E87.6 Hypokalemia; T45.1X5A Adverse effect of antineoplastic and immunosuppressive drugs, initial encounter; Y92.89 Other specified places as the place of occurrence of the external cause; Z85.118 Personal history of other malignant neoplasm of bronchus and lung; Z85.3 Personal history of malignant neoplasm of breast; Z88.0 Allergy status to penicillin
CPT/HCPCS: 36415; 73620; 74022; 80053; 81001; 82607; 83605; 83690; 84484; 85007; 85025; 87040; 96365; G0379; J1642; J1956; J3480; J7030; 99285-25

== ENCOUNTER → 2020-06-04 | Outpatient (CLI) | payer BC ==
[2020-05-26 07:00] VITALS: BP 105/54
[~2020-06-04] MED LIST changes: +IOHEXOL 180 MG/ML 10 ML VIAL. ONE; +methylPREDNISolone ACETATE 40 MG/ML VIAL. ONE; +methylPREDNISolone ACETATE 80 MG/ML VIAL. ONE
--- NOTE | 2020-06-04 09:42 | PDOC ---
Progress Note - Pain Clinic Date of Service: DOS: DATE: 06/04/20 TIME: 09:38 Diagnosis: Dx: Lumbar radiculopathy with lumbar degenerative disc disease Left knee joint pain with osteoarthritis History or Present Illness: HPI: 5-year-old female returns follow-up status post lumbar epidural steroid action x1 last seen March 22, 2020. Patient reports she did about 75% better initially but the pain returned fairly quickly after about 1 month following the injection. Patient reports pain in the low back left lower extremity greater than right but present bilaterally into the posterior gluteus posterior lateral thigh lateral anterior thighs anteromedial thigh especially in the lower legs patient was a tingling burning cramping stabbing aching sharp tight at times in the back shooting in the legs again worse on the left than the right worse with walking standing changing position with some pain becomes more constant with activity walking standing better at night generally is not awaken her from sleep. Patient reports she has recently completed chemo about 2 weeks ago and developed some peripheral neuropathy from the chemotherapy for her lung cancer as well as falling 2 weeks ago and having some difficulty with pain in the legs at that time as well. Patient rates her pain is a 10 on scale 10 at all times worst least an average over the past week and a 10 today. Patient reports no new motor or sensory deficits no bowel or bladder incontinence. Physical Exam: VS: Blood pressure is 135/71 pulse 121 respirations 16 temperature is 90.4 degrees or not height is 5 inches weight is 111 pounds PE: PHYSICAL EXAMINATION: GENERAL: The patient is awake, alert, oriented, appropriate, very pleasant demeanor HEENT: Shows normocephalic, atraumatic. Extraocular movements are intact and symmetrical. Oral cavity: Mucous membranes moist and pink. NECK: Shows anterior throat supple without palpable lymphadenopathy noted. Swallow reflex symmetrical. CHEST: Shows normal on inspection. Breath sounds are clear bilaterally, distant but no rales rhonchi or wheezes auscultated. HEART: Shows S1, S2 clear. No murmurs auscultated. ABDOMEN: Soft, nontender, nondistended, flat. No palpable organomegaly is noted. No rebound or guarding demonstrated. BACK: Shows spine grossly in the midline. Normal-appearing cervical lordotic curvature. There is slightly increased thoracic kyphosis, some minor flattening of the lumbar lordotic curvature. Lumbar paraspinous muscles show symmetrical on inspection, on palpation shows some moderate tenderness diffusely throughout the upper, middle and lower distribution of the paraspinous muscles, but without specific trigger points, without radiation of pain. The patient has good rotational motion of the lumbar spine, both laterally as well as extension and flexion without significant difficulty. No tenderness over the spinous processes, sacrum or sacroiliac regions. EXTREMITIES: Lower extremities show deep tendon reflexes 2+ in the patellar and tendo calcaneus tendons. Motor exam is 5 on a scale of 5 with right dorsiflexion, extension, quadriceps and hamstring flexion and 4/5 on the left. Peripheral pulses are 1+ posterior tibial. No peripheral edema is noted bilaterally. Lower extremities are warm and dry to touch, equal in color and appearance. SKIN: Shows warm and dry, good turgor. No edema. No sores, rashes or bruising throughout. Procedure: Procedure: Options discussed with the patient. Patient chart was reviewed as her current medication regimen updated current review of systems updated today as well. We will proceed with a second in the series lumbar epidural steroid injection today with fluoroscopic guidance. Risks were discussed including but not limited to: Bleeding, infection, possibility of epidural hematoma and subsequent neurological compromise, dural puncture, headaches, spinal cord and/or nerve damage, side effects of steroid medication, and poor results regarding pain control. Patient understands wished to proceed. Patient return to clinic in approximate 3 weeks for follow-up was counseled as to return appointment activity level and side effects to be aware of. Medication Injected: Med Injected: Procedure is lumbar epidural steroid injection under local anesthetic using sterile prep and drape at the L4-5 level using C-arm fluoroscopic guidance in both AP and lateral views medications injected is 120 mg Depo-Medrol + 10 mL preservative-free normal saline and 2 mL contrast- condition at discharge is stable patient tolerated procedure well had no complications. Condition at Discharge: Condition at Discharge: Condition at discharge is stable, patient tolerated procedure well and had no complications. LAKEISHA GROSS MD Jun 04, 2020 09:41
== END | disposition home or self-care (01) ==
LOC: PNCL 09:01
PROVIDERS: ATTEND Anesthesiology
DX: M51.16 Intervertebral disc disorders with radiculopathy, lumbar region (principal); M17.12 Unilateral primary osteoarthritis, left knee; I10 Essential (primary) hypertension; J34.89 Other specified disorders of nose and nasal sinuses; F41.9 Anxiety disorder, unspecified; D64.9 Anemia, unspecified; J43.2 Centrilobular emphysema; F17.210 Nicotine dependence, cigarettes, uncomplicated; I25.10 Atherosclerotic heart disease of native coronary artery without angina pectoris; K21.00 Gastro-esophageal reflux disease with esophagitis, without bleeding; G62.9 Polyneuropathy, unspecified; F32.9 Major depressive disorder, single episode, unspecified; Z90.89 Acquired absence of other organs; Z88.0 Allergy status to penicillin; Z98.51 Tubal ligation status; Z79.899 Other long term (current) drug therapy; Z79.82 Long term (current) use of aspirin; Z79.01 Long term (current) use of anticoagulants; Z80.0 Family history of malignant neoplasm of digestive organs; Z80.1 Family history of malignant neoplasm of trachea, bronchus and lung; Z85.9 Personal history of malignant neoplasm, unspecified; Z85.3 Personal history of malignant neoplasm of breast; Z85.118 Personal history of other malignant neoplasm of bronchus and lung; Z92.3 Personal history of irradiation; Z98.890 Other specified postprocedural states; Z72.89 Other problems related to lifestyle; Z82.49 Family history of ischemic heart disease and other diseases of the circulatory system
CPT/HCPCS: 62323; J1030; J1040; Q9965

== ENCOUNTER → 2020-06-05 | Outpatient (CLI) | payer BC ==
[2020-05-26 07:00] VITALS: BP 105/54
[~2020-06-05] MED LIST changes: -IOHEXOL 180 MG/ML 10 ML VIAL. ONE; +IOHEXOL 240 MG/ML 50ML VIAL. PO ONE; +IOHEXOL 300 MG/ML 100ML VIAL. IV ONE; -methylPREDNISolone ACETATE 40 MG/ML VIAL. ONE; -methylPREDNISolone ACETATE 80 MG/ML VIAL. ONE
--- NOTE | 2020-06-05 16:11 | KCIC ---
EXAM: CT Chest, Abdomen, and Pelvis with IV contrast INDICATION: Reason: Malignant neoplasm Left lower lobe lung follow up. / Spl. Instructions: 67 mL Omn i 300 / History: Increased mediastinal lymphadenopathy on last CT. TECHNIQUE: Multi-detector row CT images were acquired from the thoracic inlet through the ischial tu berosities with the use of IV contrast. Sagittal and coronal images were acquired from the transaxial data. All CT scans performed at this facility utilize dose optimization techniques as appropriate to the exam, including the following: Automated exposure control and adjustment of the mA and/or KV acc ording to patient size (this includes techniques or standardized protocols for targeted exams where d ose is indication/reason for exam). IV CONTRAST: Administered ORAL CONTRAST: Administered COMPARISON: Chest CT with IV contrast of 02/09/2020 and abdomen and pelvis CT with IV contrast of 02/06 FINDINGS: CHEST: CARDIOVASCULAR: Multivessel coronary calcifications. Normal caliber thoracic aorta. No abnormal enha ncement to the thoracic aorta. Suboptimal opacification of this pulmonary arteries but no large centr al filling defects. Heart is normal in size. Trace pericardial fluid. No significant pericardial effu britta. Stable right jugular approach tunneled chest port. MEDIASTINUM & JERI: Stable 1.3 cm precarinal node (image 24 series 2) stable mild prevascular lymph n odes. Stable 9 mm subcarinal node (image 29 of series 2). LUNGS: New posterior costophrenic left basilar consolidation, distal to the superior segment left low er lobe lung mass. This mass enhances heterogeneously and measures on this examination and 3.8 cm med iolateral by 4.9 cm anteroposterior and 4.6 cm craniocaudal. This compares with a previously reported measurement of 4.2 x 4.0 x 4.5 cm (transverse by AP by craniocaudal). PLEURAL SPACE: No pleural effusions or pneumothorax. OSSEOUS & SOFT TISSUE: Unremarkable ABDOMEN/PELVIS: LIVER: Unremarkable BILIARY SYSTEM: Gallbladder is unremarkable. Bile ducts are not dilated. PANCREAS: Unremarkable SPLEEN: Unremarkable ADRENALS: Unremarkable KIDNEYS & URETERS: Unremarkable BLADDER: Decompressed. Nonspecific wall thickening. REPRODUCTIVE ORGANS: Unremarkable GASTROINTESTINAL: The stomach, small bowel, and colon are unremarkable. The appendix is normal. MESENTERY/PERITONEUM/RETROPERITONEUM: Unremarkable VASCULAR: Extensive arterial calcifications in the abdominal aorta. Possible flow-limiting stenosis in the aortic bifurcation and the proximal bilateral common iliac arteries, better evaluated with CT angiographic technique. LYMPH NODES: No adenopathy OSSEOUS & SOFT TISSUES: Unremarkable IMPRESSION: 1. Apparent interval increase in size of the left lower lobe lung mass could reflect posttreatment c hanges. Reassessment on close follow-up is recommended.. 2. Stable mildly enlarged mediastinal lymph nodes. 3. Extensive arterial calcifications in the abdominal aorta. Possible flow-limiting stenosis in the aortic bifurcation and proximal bilateral common iliac arteries, better evaluated with CT angiographi c technique. Electronically signed by: Louis Roque MD (06/05/2020 4:09 PM) [id number]
== END ==
LOC: KCIC CT 10:05
PROVIDERS: ATTEND Internal Medicine Hematology & Oncology
DX: C34.32 Malignant neoplasm of lower lobe, left bronchus or lung (principal); R91.8 Other nonspecific abnormal finding of lung field; R59.0 Localized enlarged lymph nodes; I70.0 Atherosclerosis of aorta; Z20.828 Contact with and (suspected) exposure to other viral communicable diseases
CPT/HCPCS: 71260; 74177; Q9966; Q9967

== ENCOUNTER → 2020-06-18 | Outpatient (CLI) | payer BC ==
[2020-05-26 07:00] VITALS: BP 105/54
[~2020-06-18] MED LIST changes: +IOHEXOL 180 MG/ML 10 ML VIAL. ONE; -IOHEXOL 240 MG/ML 50ML VIAL. PO ONE; -IOHEXOL 300 MG/ML 100ML VIAL. IV ONE; +methylPREDNISolone ACETATE 40 MG/ML VIAL. ONE; +methylPREDNISolone ACETATE 80 MG/ML VIAL. ONE
--- NOTE | 2020-06-18 10:15 | PDOC ---
Progress Note - Pain Clinic Date of Service: DOS: DATE: 06/18/20 TIME: 10:11 Diagnosis: Dx: Lumbar radiculopathy with lumbar degenerative disc disease Left knee joint pain with osteoarthritis History or Present Illness: HPI: 5-year-old female returns to follow-up status post lumbar epidural straight injections x2. Patient reports did very well after the last injection with about 50% improvement overall initially about 75% improvement now about 50% with some decrease in neuropathic pain in the lower extremities still in the bilateral lower extremities left greater than right posterior gluteus posterior lateral thigh lateral anterior thighs into the lower legs medially patient reports a 10 on scale 10 is worse over the past week 10 on average 10 is least is a 10 today. Patient reports pain is aching sharp tight shooting burning tingling radiating with cramping pain in the back can be constant with walking and standing better with sitting or laying down but does awaken her from sleep sporadically but not every night. Patient reports no new motor or sensory deficits no new bowel or bladder incontinence or other complaints. Physical Exam: VS: Blood pressure is 106/65 pulse 114 respirations 18 temperature 98.0 F height is 5 foot 5 inches weight is 109 pounds PE: PHYSICAL EXAMINATION: GENERAL: The patient is awake, alert, oriented, appropriate, very pleasant demeanor HEENT: Shows normocephalic, atraumatic. Extraocular movements are intact and symmetrical. Oral cavity: Mucous membranes moist and pink. NECK: Shows anterior throat supple without palpable lymphadenopathy noted. Swallow reflex symmetrical. CHEST: Shows normal on inspection. Breath sounds are clear bilaterally, distant but no rales or rhonchi. HEART: Shows S1, S2 clear. No murmurs auscultated. ABDOMEN: Soft, nontender, nondistended, flat. No palpable organomegaly is noted. No rebound or guarding demonstrated. BACK: Shows spine grossly in the midline. Normal-appearing cervical lordotic curvature. There is slightly increased thoracic kyphosis, some minor flattening of the lumbar lordotic curvature. Lumbar paraspinous muscles show symmetrical on inspection, on palpation shows some moderate tenderness diffusely throughout the upper, middle and lower distribution of the paraspinous muscles, but without specific trigger points, without radiation of pain. The patient has good rotational motion of the lumbar spine, both laterally as well as extension and flexion without significant difficulty. No tenderness over the spinous processes, sacrum or sacroiliac regions. EXTREMITIES: Lower extremities show deep tendon reflexes 2+ in the patellar and tendo calcaneus tendons. Motor exam is 5 on a scale of 5 with right dorsiflexion, extension, quadriceps and hamstring flexion and 4/5 on the left. Peripheral pulses are 1+ posterior tibial. No peripheral edema is noted bilaterally. Lower extremities are warm and dry to touch, equal in color and appearance. SKIN: Shows warm and dry, good turgor. No edema. No sores, rashes or bruising throughout. Procedure: Procedure: Options were discussed with the patient. Patient chart reviewed his current medication regimen updated current review of systems updated today as well. We will proceed with a third in the series lumbar epidural steroid injection today with fluoroscopic guidance. Risks were discussed including but not limited to: Bleeding, infection, possibility of epidural hematoma and subsequent neurological compromise, dural puncture, headaches, spinal cord and/or nerve damage, side effects of steroid medication, and poor results regarding pain control. Patient understands wished to proceed. Patient will return to clinic in approximately 2 weeks for follow-up, was counseled as return appointment activity level, and side effects to be aware of. Medication Injected: Med Injected: Procedure is lumbar epidural steroid injection under local anesthetic using sterile prep and drape at the L4-5 level using C-arm fluoroscopic guidance in both AP and lateral views medications injected is 120 mg Depo-Medrol + 10 mL preservative-free normal saline and 2 mL contrast- condition at discharge is stable patient tolerated procedure well had no complications. Condition at Discharge: Condition at Discharge: Condition at discharge stable, patient tolerated the procedure well and had no complications. LAKEISHA GROSS MD Jun 18, 2020 10:15
== END | disposition home or self-care (01) ==
LOC: PNCL 09:26
PROVIDERS: ATTEND Anesthesiology
DX: M51.16 Intervertebral disc disorders with radiculopathy, lumbar region (principal); M17.12 Unilateral primary osteoarthritis, left knee; G62.9 Polyneuropathy, unspecified; I10 Essential (primary) hypertension; E78.00 Pure hypercholesterolemia, unspecified; J44.9 Chronic obstructive pulmonary disease, unspecified; F41.9 Anxiety disorder, unspecified; F32.9 Major depressive disorder, single episode, unspecified; F17.210 Nicotine dependence, cigarettes, uncomplicated; Z98.51 Tubal ligation status; Z98.890 Other specified postprocedural states; Z79.82 Long term (current) use of aspirin; Z79.899 Other long term (current) drug therapy; Z88.0 Allergy status to penicillin; Z82.49 Family history of ischemic heart disease and other diseases of the circulatory system
CPT/HCPCS: 62323; J1030; J1040; Q9965

== ENCOUNTER → 2020-09-10 | Outpatient (CLI) | payer BC ==
[~2020-09-10] MED LIST changes: -IOHEXOL 180 MG/ML 10 ML VIAL. ONE; +IOHEXOL 240 MG/ML 50ML VIAL. PO ONE; +IOHEXOL 300 MG/ML 100ML VIAL. IV ONE; -methylPREDNISolone ACETATE 40 MG/ML VIAL. ONE; -methylPREDNISolone ACETATE 80 MG/ML VIAL. ONE
--- NOTE | 2020-09-10 16:19 | KCIC ---
EXAM: CT HEAD WITH AND WITHOUT CONTRAST. HISTORY: Nausea/vomiting. Lung cancer, fatigue. TECHNIQUE: Computed tomography of the head was performed before and after the intravenous administrat ion of 67 mL Omnipaque 300. One or more of the following individualized dose reduction techniques wer e utilized for this examination: 1. Automated exposure control. 2. Adjustment of the mA and/or kV according to patient size. 3. Use of iterative reconstruction technique. COMPARISON: 02/07/2020. 07/05/2019. FINDINGS: There are no clear enhancing lesions. Limited images of the vasculature reveal no abnormali ty. There is no intracranial hemorrhage. Chronic mild encephalomalacia is suspected along the inferior as pect of the right frontal lobe. Silva-white differentiation is otherwise preserved. The ventricles are normal in size and position. The visualized paranasal sinuses appear clear. The orbits are unremarkable. The temporal bones are un remarkable. The calvarium reveals no suspicious lesions. IMPRESSION: 1. No clear enhancing lesions. MRI is more sensitive if there is further concern. 2. Mild chronic encephalomalacia along the inferior aspect of the right frontal lobe suggests remote head trauma. Electronically signed by: Cayla Deluna MD (09/10/2020 4:16 PM) [facility]
--- NOTE | 2020-09-11 10:55 | KCIC ---
EXAM: CT Chest, Abdomen, and Pelvis with IV contrast INDICATION: Reason: LUNG CA/FATIGUE/HYPOTENSION/NAUSEA/VOMITING / Spl. Instructions: 67mL Omni 300 / History: TECHNIQUE: Multi-detector row CT images were acquired from the thoracic inlet through the ischial tu berosities with the use of IV contrast. Sagittal and coronal images were acquired from the transaxial data. All CT scans performed at this facility utilize dose optimization techniques as appropriate to the exam, including the following: Automated exposure control and adjustment of the mA and/or KV acc ording to patient size (this includes techniques or standardized protocols for targeted exams where d ose is indication/reason for exam). IV CONTRAST: Administered ORAL CONTRAST: Administered COMPARISON: 06/05/2020 CT chest abdomen pelvis with IV contrast and CT chest with IV contrast of 02/08 FINDINGS: CHEST: CARDIOVASCULAR: Trace pericardial effusion is slightly more apparent in the interval. Normal heart s ize. Normal caliber thoracic aorta with scattered aortic calcifications including of the origin of th e great vessels without evidence of flow-limiting stenosis. MEDIASTINUM & JERI: There is worsening mediastinal adenopathy best appreciated in the prevascular lym ph nodes that now measure 5 mm in short axis compared with 4 mm on previous exams. Precarinal lymph n ode measures 1.3 cm, unchanged. There is mild thickening of the distal thoracic esophagus. LUNGS: The heterogeneously enhancing hypodense mass in the left lower lobe abutting the inferior hilu m appears to have increased slightly in size. It is associated with slightly greater constriction of the abutting left lower lobe bronchi. Precise measurements are difficult because the mass is now part ly surrounded by atelectatic lung. However, by measuring the central area of ring enhancement, a amrik urement of 3.3 x 3.3 cm is obtained, compared with 3.0 x 3.1 cm (image 36 series 10,004 this exam com pared with series 2 image 33 on 06/05/2020). PLEURAL SPACE: Increasing consolidation in the left lower lobe medial basal segment with heterogeneit y and enhancement. OSSEOUS & SOFT TISSUE: No bony erosions. Chronic T7 superior endplate compression fracture. ABDOMEN/PELVIS: LIVER: Unremarkable BILIARY SYSTEM: Gallbladder is unremarkable. Bile ducts are not dilated. PANCREAS: Unremarkable SPLEEN: Unremarkable ADRENALS: Unremarkable KIDNEYS & URETERS: Unremarkable BLADDER: Unremarkable REPRODUCTIVE ORGANS: Unremarkable GASTROINTESTINAL: The stomach, small bowel, and colon are unremarkable. The appendix is normal. MESENTERY/PERITONEUM/RETROPERITONEUM: Unremarkable VASCULAR: There is atherosclerotic calcification in the abdominal aorta and its pelvic inflow vessel s, likely resulting in flow-limiting stenosis and bilateral common iliac arteries. LYMPH NODES: No adenopathy OSSEOUS & SOFT TISSUES: Unremarkable IMPRESSION: The left lower lobe lung mass shows no significant decrease in size compared with 7 months ago. There is increasing atelectatic change surrounding it, rendering precise measurements of interval change i n size difficult. It is possible gradual local tumor progression has occurred. There are slightly lar ceci mediastinal lymph nodes that may be reactive but could alternatively represent worsening mediasti nal metastatic taylor disease. No evidence of metastatic disease to the abdomen or pelvis but severe atherosclerotic change in the a bdominal aorta and its runoff vessels is present. Electronically signed by: Louis Roque MD (09/11/2020 10:53 AM) [id number]
== END ==
LOC: KCIC CT 13:40
PROVIDERS: ATTEND Internal Medicine Hematology & Oncology
DX: C34.32 Malignant neoplasm of lower lobe, left bronchus or lung (principal); I95.89 Other hypotension; E86.1 Hypovolemia; R11.2 Nausea with vomiting, unspecified; J98.11 Atelectasis; G93.89 Other specified disorders of brain
CPT/HCPCS: 70470; 71260; 74177; Q9966; Q9967

== ENCOUNTER → 2020-09-17 | Outpatient (CLI) | payer BC ==
[~2020-09-17] MED LIST changes: +GADOTERATE 7.5 MMOL/15ML VIAL. IVP ONE; -IOHEXOL 240 MG/ML 50ML VIAL. PO ONE; -IOHEXOL 300 MG/ML 100ML VIAL. IV ONE
--- NOTE | 2020-09-17 16:00 | KCIC ---
MRI BRAIN WO+W Date: 09/17/2020 2:30 PM Indication: Reason: LUNG CA / Spl. Instructions: / History: Eval for metatstatic lung CA. 8cc Joie scan Comparison: CT head 09/11/2019. Technique: Multiplanar multisequence MRI of the brain was performed with and without intravenous cont rast using the standard protocol. 8 cc Clariscan contrast was administered intravenously during the e xam. Findings: No acute infarct. No acute or chronic hemorrhage. The ventricles are normal in size and configuration without hydrocephalus. Mild scattered FLAIR hyperintensities in the subcortical and periventricular deep white matter, a nonspecific finding, most commonly seen with chronic small vessel ischemic disea se. No abnormal enhancement. The scalp and calvarium are normal. The pituitary and sella are normal. No Chiari malformation. Mild incompletely characterized degenerative spondylosis of the visualized upper cervical spine. The visualized orbits and globes are normal. The visualized paranasal sinuses are clear. The mastoid air cells are clear. Normal flow voids within the vertebral, basilar, and internal carotid arteries indicating patency. IMPRESSION: 1. No evidence of intracranial metastatic disease. 2. Mild scattered FLAIR hyperintensities in the subcortical and periventricular deep white matter, a nonspecific finding, most commonly seen with chronic small vessel ischemic disease. Electronically signed by: Vahid Mina MD (09/17/2020 3:58 PM) [id number]
== END ==
LOC: KCIC MRI 14:16
PROVIDERS: ATTEND Registered Nurse
DX: C34.32 Malignant neoplasm of lower lobe, left bronchus or lung (principal); R51.9 Headache, unspecified; R11.2 Nausea with vomiting, unspecified; R42 Dizziness and giddiness
CPT/HCPCS: 70553; 82565; A9575

== ENCOUNTER → 2020-11-30 | Outpatient (CLI) | payer BC ==
[~2020-11-30] MED LIST changes: -GADOTERATE 7.5 MMOL/15ML VIAL. IVP ONE; +IOHEXOL 240 MG/ML 50ML VIAL. PO ONE; +IOHEXOL 300 MG/ML 100ML VIAL. IV ONE
--- NOTE | 2020-12-01 08:11 | KCIC ---
EXAM: CT Chest, Abdomen and Pelvis with IV contrast CLINICAL HISTORY: LUNG CANCER COMPARISON: 09/10/2020 06/05/2020 TECHNIQUE: Helical CT of the chest, abdomen and pelvis was performed following the administration of intravenous contrast. Axial, coronal and sagittal reformatted images were generated. ---PQRS compliance statement - One or more of the following individualized dose reduction techniques were utilized for this study: 1. Automated exposure control 2. Adjustment of the mA and/or kV according to patient size 3. Use of iterative reconstruction technique--- FINDINGS: Chest: Heart is not enlarged. Small pericardial effusion. Coronary calcifications are seen. Right chest port tip terminates within the distal SVC/proximal right atrium. There is a small left pleural effusion. No right pleural effusion. No pneumothorax. Cavitary mass in the medial left lower lobe is again seen. However there is now near lobar atelectasi s of the left lower lobe, postobstructive. Given the associated atelectasis and resolving parenchymal opacities, accurate measurement of the mass is difficult however on gross evaluation is likely stabl e. When measured from the peripheral rim of enhancement this lesion measures 3.2 cm, similar to prior CT when measured in a similar fashion. Mediastinal lymphadenopathy, mildly progressed. For example a precarinal lymph node measures 1.6 x 1. 5 cm, previously 1.5 x 1.3 cm when remeasured at a similar fashion. Prevascular lymph nodes measure 6 mm short axis, previously 5 mm. Mildly enlarged left hilar lymph nodes are also seen. Mild distal esophageal thickening is again seen. No axillary lymphadenopathy. Abdomen and Pelvis: No focal liver lesion. Gallbladder is normal. No biliary ductal dilatation. Pancreas is unremarkable. Spleen is normal in appearance. Adrenal glands are unremarkable. Symmetric nephrograms. No focal aviva al lesion. No hydronephrosis. No hydroureter. Bladder is unremarkable. Moderate colonic stool content is seen. No small or large bowel dilatation. No bowel obstruction. Uterus and adnexa are grossly unr emarkable. Dense atherosclerotic aortobiiliac calcifications with likely flow-limiting stenosis in th e iliacs, incompletely assessed. No abdominal or pelvic lymphadenopathy. No abdominal or pelvic ascit es. Bones: Decreased bone mineral density. No definite aggressive osseous lesion is seen. In general the osseous structures are grossly stable. IMPRESSION: 1. Left lower lobe mass, with interval progression of associated atelectasis, now near lobar atelect asis, limiting accurate comparative measurements. Within these constraints, the left lower lobe mass is grossly stable in size. 2. There is enlarging mediastinal lymphadenopathy suggesting progression of metastatic disease. Electronically signed by: Amador Morejon MD (12/01/2020 8:08 AM) [facility]
== END ==
LOC: KCIC CT 13:11
PROVIDERS: ATTEND Internal Medicine Hematology & Oncology
DX: C34.32 Malignant neoplasm of lower lobe, left bronchus or lung (principal); J90 Pleural effusion, not elsewhere classified; R53.83 Other fatigue; I25.10 Atherosclerotic heart disease of native coronary artery without angina pectoris
CPT/HCPCS: 71260; 74177; Q9966; Q9967

== ENCOUNTER → 2021-03-08 | Outpatient (CLI) | payer BC ==
[~2021-03-08] MED LIST changes: +POTA-121 PO; -POTA20TA4 PO
--- NOTE | 2021-03-09 07:48 | KCIC ---
PQRS Compliance Statement: One or more of the following individualized dose reduction techniques were utilized for this examinat ion: 1. Automated exposure control 2. Adjustment of the mA and/or kV according to patient size 3. Use of iterative reconstruction technique CT head with and without contrast 03/08/2021 2:35 PM INDICATION: Left lung cancer, smoker. COMPARISON: MRI brain 09/17/2020 TECHNIQUE: Multiple axial CT images of the head were obtained from skull base through the vertex with out without intravenous contrast. FINDINGS: Head: Ventricles, sulci and basal cisterns are within normal limits. There is no hydrocephalus. Silva-white matter differentiation is normal. There is no acute intracranial hemorrhage. There is no mass, mass e ffect or midline shift. Posterior fossa is normal in appearance. No suspicious enhancement is identif ied. Visualized portions of the orbits are normal. Paranasal sinuses are well aerated. Mastoid air cells a re well aerated. Scalp and calvaria are normal. IMPRESSION: No acute intracranial hemorrhage. No suspicious enhancement is identified. MRI may be more sensitive for detection of intracranial meta static disease. Electronically signed by: Adele Crow MD (03/09/2021 7:45 AM) [id number]
--- NOTE | 2021-03-09 09:08 | KCIC ---
PQRS Compliance Statement: One or more of the following individualized dose reduction techniques were utilized for this examinat ion: 1. Automated exposure control 2. Adjustment of the mA and/or kV according to patient size 3. Use of iterative reconstruction technique CT CHEST+ABD+PELVIS W 03/08/2021 2:35 PM Indication: Left lung cancer. Smoker. COMPARISON: CT chest, abdomen and pelvis 11/30/2020. TECHNIQUE: Multiple axial CT images of the chest, abdomen and pelvis were obtained after the intraven ous administration of 67 mL Omnipaque 300. Coronal and sagittal reformats are provided. FINDINGS: Right chest wall infusion port catheter is identified with the distal tip terminating in the superior vena cava. Heart size within normal limits. There is a small to moderate-sized pericardial effusion which appears stable. Thoracic aorta is normal in course and caliber with moderate calcified and nonc alcified atheromatous plaque. Three-vessel coronary artery vascular calcifications are present. Stabl e thoracic lymphadenopathy. Precarinal lymph node measures 1.6 x 1.2 cm. Prevascular lymph nodes amrik ure up to 10 mm by short axis. There is persistent lobar consolidation with volume loss at the left l jackelin base suggestive of lobar atelectasis. There is possible cystic bronchiectasis versus cavitation w ithin a peripherally enhancing region in the left lower lobe measuring 3.8 x 3.3 cm, not significant changed. Trace left pleural effusion. Findings are not significantly changed. Liver, spleen, adrenal glands, pancreas and gallbladder are normal in appearance. Dense calcified ath eromatous plaque is identified involving the abdominal aorta. There is ulcerated soft plaque identifi ed along the infrarenal abdominal aorta. No pathologically enlarged lymph nodes are identified in abd omen and pelvis. There is no free fluid or free intraperitoneal air. Oral contrast was administered. Opacified bowel loops demonstrate normal mucosal fold pattern. Small and large bowel are normal in caliber. There is no evidence for bowel obstruction. There are no peric olonic inflammatory changes. A normal, nondilated appendix is visualized without adjacent inflammator y changes. The kidneys enhance symmetrically. There is no suspicious renal mass. There is no hydronephrosis. The re are no suspected calculi within the kidneys, ureters or urinary bladder. Urinary bladder is within normal limits given degree of distention. Uterus and adnexa are normal by C T. There is a T7 compression fracture with 50 percent height loss without significant retropulsion. F indings are stable from 11/30/2020. IMPRESSION: 1. Rounded consolidative change with minimal peripheral enhancement identified within the left lower lobe with associated left lower lobar atelectatic changes. Findings are not significantly changed sin ce prior examination. No findings to suggest disease progression. 2. Mediastinal lymphadenopathy appears stable. 3. No evidence for metastatic disease involving the abdomen and pelvis. 4. Dense calcified and noncalcified atheromatous plaque involving the abdominal aorta with ulcerated noncalcified atheromatous plaque along the infrarenal abdominal aorta. 5. Superior endplate compression fracture at T7 is stable with 50 percent height loss. Electronically signed by: Adele Crow MD (03/09/2021 9:05 AM) [id number]
== END ==
LOC: KCIC CT 13:34
PROVIDERS: ATTEND Internal Medicine Hematology & Oncology
DX: C34.32 Malignant neoplasm of lower lobe, left bronchus or lung (principal); S22.060A Wedge compression fracture of T7-T8 vertebra, initial encounter for closed fracture; I31.3 Pericardial effusion (noninflammatory); I70.0 Atherosclerosis of aorta; R59.1 Generalized enlarged lymph nodes; I25.10 Atherosclerotic heart disease of native coronary artery without angina pectoris; X58.XXXA Exposure to other specified factors, initial encounter; Y93.89 Activity, other specified; Y92.89 Other specified places as the place of occurrence of the external cause; Y99.8 Other external cause status
CPT/HCPCS: 70470; 71260; 74177; Q9966; Q9967

== ENCOUNTER → 2021-05-23 | Outpatient (CLI) | payer BC ==
[~2021-05-23] MED LIST changes: -DULO60CA6 PO; +DULO60CA7 PO; -IOHEXOL 240 MG/ML 50ML VIAL. PO ONE; -IOHEXOL 300 MG/ML 100ML VIAL. IV ONE
--- NOTE | 2021-05-24 09:31 | KCIC ---
Bilateral lower extremity arterial duplex ultrasound 05/24/2021 INDICATION: Peripheral vascular disease. History of lung cancer. Smoker. COMPARISON STUDY: CT of the abdomen and pelvis March 08, 2021.: Ultrasound evaluation of the sylvia r arteries of the bilateral lower extremities was performed including color Doppler imaging and spect ral analysis. FINDINGS: There is severe diffuse atherosclerotic vascular disease bilaterally. Prominent blunting of waveforms are seen throughout the bilateral lower extremity arteries beginning at the common femoral artery suggesting hemodynamically significant aortoiliac disease. On the left there is a focal eleva tion velocity within the proximal left SFA suggesting a second area of significant stenosis. No overt major arterial occlusion is seen. No aneurysm is seen. Other focal sonographic abnormality is identi fied. IMPRESSION: 1. Severe atherosclerotic vascular disease with probable hemodynamically significant aortoiliac steno sis bilaterally 2 . Hemodynamically significant stenosis in the proximal left SFA 3.. Review of prior CT of the abdomen and pelvis demonstrates dense calcification in the aortic bifur cation and proximal common iliac arteries with either near occlusion or occlusion. Appearance concern ing for Leriche syndrome. Recommend CT angiography for further evaluation. Electronically signed by: Quan John MD (05/24/2021 9:29 AM) [id number]
== END ==
LOC: KCIC US 15:29
PROVIDERS: ATTEND Family Medicine
DX: I70.203 Unspecified atherosclerosis of native arteries of extremities, bilateral legs (principal)
CPT/HCPCS: 93925

== ENCOUNTER → 2021-06-12 | Outpatient (CLI) | payer BC ==
[~2021-06-12] MED LIST changes: +IOHEXOL 240 MG/ML 50ML VIAL. PO ONE; +IOHEXOL 300 MG/ML 100ML VIAL. IV ONE
--- NOTE | 2021-06-12 17:14 | KCIC ---
EXAM: Chest, abdomen and pelvis CT with intravenous contrast. HISTORY: Lung cancer. TECHNIQUE: Computed tomographic images of the chest, abdomen and pelvis were obtained following the a dministration of intravenous contrast. Multiplanar reformatting was performed. *One or more of the following individualized dose reduction techniques were utilized for this examina tion: 1. Automated exposure control. 2. Adjustment of the mA and/or kV according to patient size. 3. Use of iterative reconstruction technique. COMPARISON: 03/08/2021. FINDINGS: Chest: There is stable left infrahilar masslike consolidation with internal hyperdensity an d foci of gas measuring approximately 4.0 cm. There is collapse of the left lower lobe and left hemit horax volume loss with leftward mediastinal shift, also stable in appearance. There are pathologically enlarged mediastinal lymph nodes. For reference purposes, this includes a pr evascular lymph node measuring 1.8 cm, compared to a prior measurement of 1.2 cm. There is a stable m oderate pericardial effusion. There is calcified atherosclerotic plaque involving the coronary arteri es. There is a port catheter unchanged in position. There is pulmonary emphysema. There is no pneumothorax. There are degenerative changes involving the spine. There is a mild to moderate T7 compression fracture. There is no acute osseous finding. There is no suspicious osseous lesion. Abdomen and pelvis: No hepatic lesion is seen. The gallbladder, pancreas, spleen and adrenal glands a re unremarkable. There is left renal cortical thinning and lobulation. There is a tiny left renal cor tical cyst. There is a prominent right renal collecting system, likely due to the hydration status of patient. There is no convincing hydronephrosis. No obstructing lesion is seen. There is no appendicitis. There is no bowel obstruction. The bladder, uterus and adnexal regions are unremarkable. There is heavily calcified atherosclerotic plaque involving the abdominal aorta and robson ac bifurcation. There are nonspecific mesenteric and retroperitoneal lymph nodes. There is no convinc ing lymphadenopathy. There is no acute or suspicious osseous finding. There is degenerative change in volving the lumbar spine. There is a new mild to moderate compression fracture of L4. This is chronic in appearance. IMPRESSION: 1. Stable 4.0 cm left infrahilar masslike lesion with internal hyperdensity and gas likely due to cav itation, possibly due to residual neoplasm. There is superimposed left lower lobe collapse. 2. Increase in mediastinal lymphadenopathy, concerning for progressive metastatic disease. 3. Stable moderate pericardial effusion. 4. Emphysema. 5. Stable chronic mild to moderate T7 compression fracture and new chronic appearing [id number] L4 compression fracture. Correlate for pain in this location to exclude a subacute fracture. Electronically signed by: Hilda Stanley MD (06/12/2021 5:12 PM) [id number]
--- NOTE | 2021-06-13 08:23 | KCIC ---
EXAM: Head CT without contrast. HISTORY: Lung cancer. TECHNIQUE: Computed tomographic images of the head were obtained without intravenous contrast. *One or more of the following individualized dose reduction techniques were utilized for this examina tion: 1. Automated exposure control. 2. Adjustment of the mA and/or kV according to patient size. 3. Use of iterative reconstruction technique. COMPARISON: 03/08/2021. FINDINGS: There is no acute or subacute extra-axial or intraparenchymal hemorrhage. There is no mass effect or midline shift. There is no hydrocephalus. There are areas of decreased attenuation within the cerebral white matter, nonspecific and likely rel ated to chronic small vessel disease. There is encephalomalacia within the inferior medial right grea ter than left frontal lobes, likely due to sequela of remote trauma. The visualized portions of the orbits, paranasal sinuses and mastoid air cells are unremarkable. No s uspicious calvarial lesion is seen. IMPRESSION: 1. No acute intracranial findings. Note is made that MRI with and without contrast is more sensitive for intracranial metastatic disease. 2. Encephalomalacia within the inferior medial right greater than left frontal lobes, likely due to t he sequela of remote trauma. 3. Mild cerebral white matter changes, likely due to chronic small vessel disease. Electronically signed by: Hilda Stanley MD (06/13/2021 8:21 AM) [facility]
== END ==
LOC: KCIC CT 14:03
PROVIDERS: ATTEND Internal Medicine Hematology & Oncology
DX: C34.32 Malignant neoplasm of lower lobe, left bronchus or lung (principal); G93.89 Other specified disorders of brain; R91.8 Other nonspecific abnormal finding of lung field; J43.9 Emphysema, unspecified; I31.3 Pericardial effusion (noninflammatory); R59.0 Localized enlarged lymph nodes; I25.10 Atherosclerotic heart disease of native coronary artery without angina pectoris; I70.0 Atherosclerosis of aorta; N28.89 Other specified disorders of kidney and ureter; M48.54XA Collapsed vertebra, not elsewhere classified, thoracic region, initial encounter for fracture; M47.816 Spondylosis without myelopathy or radiculopathy, lumbar region; M48.56XA Collapsed vertebra, not elsewhere classified, lumbar region, initial encounter for fracture
CPT/HCPCS: 70470; 71260; 74177; Q9966; Q9967

== ENCOUNTER 2021-07-05 08:11 | Outpatient (CLI) | payer BC ==
[2021-07-05] VITALS (10 sets, daily range): BP systolic 106–145; BP diastolic 54–76
[~2021-07-05] VITALS: Ht 165.1 cm; Wt 48.0 kg
[~2021-07-05 08:11] MED LIST changes: +IODIXANOL 320 MG/ML 100 ML VIAL. ONE; -IOHEXOL 240 MG/ML 50ML VIAL. PO ONE; -IOHEXOL 300 MG/ML 100ML VIAL. IV ONE
[2021-07-05] MEDS ORDERED: BENZ-8 PO (08:16)
[2021-07-05] MEDS ORDERED: LIDOCAINE 1% PF 2 ML VIAL. ONE (08:16)
[2021-07-05] MEDS ORDERED: OMEP40CA7 PO (08:16)
[2021-07-05 08:17] LABS: BASO # 0.1 x10^3/uL (0.0-0.2); BASO % 1 % (0-3); EOS # 0.5 x10^3/uL (0.0-0.7); EOS % 5 % (0-3); HEMOGLOBIN 11.5 g/dL (12.0-15.5); LYMPH # 1.8 x10^3/uL (1.0-4.8); LYMPH % 20 % (24-48); MEAN CORPUSCULAR HEMOGLOBIN 31 pg (25-35); MEAN CORPUSCULAR HGB CONC 34 g/dL (31-37); MEAN CORPUSCULAR VOLUME 92 fL (79-100); MONO # 0.6 x10^3/uL (0.0-1.1); MONO % 7 % (0-9); NEUT # 6.1 x10^3/uL (1.8-7.7); NEUT % 68 % (31-73); PLATELET COUNT 293 x10^3/uL (140-400); RED BLOOD COUNT 3.69 x10^6/uL (3.50-5.40); RED CELL DISTRIBUTION WIDTH 16.2 % (11.5-14.5); WHITE BLOOD COUNT 9.1 x10^3/uL (4.0-11.0)
[2021-07-05 08:19] LABS: PROTHROMBIN TIME PATIENT 13.1 SEC (11.7-14.0)
[2021-07-05 08:25] LABS: CALCIUM 8.4 mg/dL (8.5-10.1); CREATININE 0.7 mg/dL (0.6-1.0); GFR 85.1
[2021-07-05] MEDS ORDERED: fentaNYL PF VIAL 100 MCG/2 ML VIAL ONE (08:36)
[2021-07-05] MEDS ORDERED: MIDAZOLAM HCL/PF 2 MG/2 ML VIAL. ONE (08:36)
[2021-07-05] MEDS ORDERED: HEPARIN for IV BOLUS 10,000 UNIT/10 ML VIAL. ONE (08:36)
[2021-07-05] MEDS ORDERED: NITROGLYCERIN 200 MCG/2 ML SYRINGE FOR CATH/VASC LAB. ONE (08:37)
[2021-07-05] MEDS ORDERED: VERAPAMIL 5 MG/2 ML VIAL. ONE (08:37)
[2021-07-05] MEDS ORDERED: NITROGLYCERIN 200 MCG/2 ML SYRINGE FOR CATH/VASC LAB. IART ONE (09:15)
[2021-07-05] MEDS ORDERED: MIDAZOLAM HCL/PF 2 MG/2 ML VIAL. IV ONE (09:15)
[2021-07-05] MEDS ORDERED: HEPARIN for IV BOLUS 10,000 UNIT/10 ML VIAL. IART ONE (09:15)
[2021-07-05] MEDS ORDERED: VERAPAMIL 5 MG/2 ML VIAL. IART ONE (09:15)
[2021-07-05] MEDS ORDERED: IODIXANOL 320 MG/ML 100 ML VIAL. IART ONE (09:15)
[2021-07-05] MEDS ORDERED: LIDOCAINE 1% PF 2 ML VIAL. INJ ONE (09:15)
[2021-07-05] MEDS ORDERED: fentaNYL PF VIAL 100 MCG/2 ML VIAL IV ONE (09:15)
--- NOTE | 2021-07-05 09:44 | CARD ---
MR#: [id number] Date of Study: 07/05/2021 Ordering Physician: IRINA GAXIOLA, Referring Physician: IRINA GAXIOLA, Tech: RT Vinh(R) APPROVED REPORT Patient StatusOUT-PATIENT Jewel Gauger: RT Vinh(R) Procedure(s) performed: Aortogram with bilateral lower extremity runoff fl time: 2.1 min dose: 20 gycm2 contrast: 58 ml moderate sedation: 30 mins INDICATION FOR PROCEDURE The indication(s) include : Peripheral artery disease with claudication. CASE TECHNIQUE After explaining the risks, benefits, and alternative options, informed consent was obtained from the patient. IV conscious sedation was used throughout procedure with appropriate monitoring and was per formed in the presence of a registered nurse who was an independent trained observer other than the lily sifuentes performing the procedure. During this case, Fluoroscopy and low osmolar contrast were used f or imaging. Specimen(s) Removed: No Estimated Blood loss: 15 cc's. PROCEDURE NARRATIVE After explaining the risk, benefits and alternative options, informed consent was obtained from patie nt. Patient was brought to the cardiac Road [facility]aire[facility] and her right wrist was prepped and draped in the us ual fashion after confirming a positive modified Jose's test. Arterial access was obtained in the r ight radial artery and a 6 Omani sheath was inserted. A 4 Omani R2P PV multicurve catheter was the n advanced under fluoroscopic guidance and with the tip positioned in the descending aorta, aortogram with bilateral lower extremity runoff was performed. Patient tolerated the procedure well. Hemosta sis was achieved using TR band. There were no immediate complications. FINDINGS 1. The distal descending aorta showed 30% stenosis followed by 100% chronic total occlusion. 2. The common iliac arteries bilaterally showed 100% calcified and chronic total occlusions with rec onstitution of the external iliac arteries via collaterals. 3. The right common femoral artery did not show any significant stenosis. The left common femoral a rtery appeared to show 50 to 60% stenosis. 4. The superficial femoral and deep femoral arteries bilaterally did not show any significant stenos is. 5. the popliteal arteries bilaterally did not show any significant stenosis. There is good three ves clarence runoff below the knee bilaterally. Conclusion Significant bilateral lower extremity peripheral artery disease with 100% chronic total occlusions in volving distal descending aorta and bilateral common iliac arteries. Recommendations Vascular surgery consultation for possible surgical revascularization. Vascular risk factor modification including smoking cessation and regular exercise regimen. Signed by : Irina Gaxiola, Electronically Approved : 07/05/2021 09:43:25
[2021-07-05] MEDS ORDERED: IV 1/2 NORMAL SALINE 1,000 ML IV SCH (09:45)
--- NOTE | 2021-07-05 09:45 | PDOC ---
MODERATE SEDATION ASSESSMENT RISKS/ALTERNATIVES Risks/Alternatives Risks and alternatives of this type of sedation and procedure discussed with: RISK/ALTERNATIVES: Patient H & P ON CHART H & P H & P on chart and reviewed for co-morbid conditions and appropriate labs. H&P ON CHART: Yes STATUS PREG STATUS ASSESSED: N/A MEDS/ALLERGIES REVIEWED Meds/Allergies Reviewed Medications and Allergies including time and route of recently administered narcotics and sedatives. MEDS/ALLERGIES REVIEWED: Yes ASA RATING ASA RATING: III AIRWAY ASSESSMENT Airway Assessment Airway patency, oral function limitations, presence of caps, crowns, dentures, partials, and ability to extend neck assessed. AIRWAY ASSESSMENT: Yes MALLAMPATI SCORE MALLAMPATI SCORE: II PRE-SEDATION ASSESSMENT PRE-SEDATION ASSESSMENT: Yes IRINA FULTON MD Jul 05, 2021 09:45
--- NOTE | 2021-07-05 12:21 | NUR ---
pt ambulated and tolerated PO. Port a cath de accessed. TR band removed. Armboard reapplied. Discharge instructions reviewed with patient. Pt discharged to Echocardiogram
--- NOTE | 2021-07-05 13:53 | CARD ---
MR#: [id number] Date of Study: 07/05/2021 Ordering Physician: IRINA FULTON, Referring Physician: IRINA FULTON Tech: Yaritza Ribeiro [facility] APPROVED REPORT EXAM: Two-dimensional and M-mode echocardiogram with Doppler and color Doppler. Other Information Quality : AverageHR: 89bpm Rhythm : NSR INDICATION Dyspnea Cardiac Disease: CAD RISK FACTORS Hyperlipidemia 2D DIMENSIONS RVDd1.9 (2.9-3.5cm)Left Atrium(2D)3.3 (1.6-4.0cm) IVSd0.9 (0.7-1.1cm)Aortic Root(2D)2.5 (2.0-3.7cm) LVDd3.2 (3.9-5.9cm)LVOT Diameter2.0 (1.8-2.4cm) PWd0.9 (0.7-1.1cm)LVDs2.2 (2.5-4.0cm) FS (%) 32.0 %SV25.0 ml Aortic Valve AoV Peak Hayes.114.6cm/sAoV VTI23.1cm AO Peak GR.5.3mmHgLVOT Peak Hayes.109.3cm/s AO Mean GR.3mmHgAVA (VMAX)2.94cm2 Mitral Valve MV E Njmdcpkt220.3cm/sMV DECEL NXLE207kg MV A Nqkytecj211.3cm/sE/A Ratio1.0 Pulmonary Valve PV Peak Fppswohj79.7cm/s Tricuspid Valve TR P. Sffihqsu119et/sTR Peak Gr.32mmHg LEFT VENTRICLE The left ventricle is normal size. There is normal left ventricular wall thickness. The left ventricu lar systolic function is normal and the ejection fraction is within normal range. Left ventricular ej ection fraction is 55 to 60%. There is normal LV segmental wall motion. Transmitral Doppler flow gabino georgina is Grade I-abnormal relaxation pattern. RIGHT VENTRICLE The right ventricle is normal size. There is normal right ventricular wall thickness. The right ventr icular systolic function is normal. ATRIA The left atrium size is normal. The right atrium size is normal. The interatrial septum is intact wit h no evidence for an atrial septal defect or patent foramen ovale as noted on 2-D or Doppler imaging. AORTIC VALVE The aortic valve is normal in structure and function. Doppler and Color Flow revealed no significant aortic regurgitation. There is no significant aortic valvular stenosis. MITRAL VALVE The mitral valve is mildly thickened but opens well. There is no evidence of mitral valve prolapse. T here is no mitral valve stenosis. Doppler and Color-flow revealed trace mitral regurgitation. TRICUSPID VALVE The tricuspid valve is normal in structure and function. Doppler and Color Flow revealed mild tricusp id regurgitation. Estimated PAP 35 mmHg. There is no tricuspid valve stenosis. PULMONIC VALVE The pulmonary valve is normal in structure and function. Doppler and Color Flow revealed trace pulmon ic valvular regurgitation. GREAT VESSELS The aortic root is normal in size. The ascending aorta is normal in size. The IVC is normal in size a nd collapses >50% with inspiration. PERICARDIAL EFFUSION There is a small to moderate pericardial effusion with no evidence of hemodynamic significance Critical Notification Critical Value: No <Conclusion> The left ventricle is normal size. The left ventricular systolic function is normal and the ejection fraction is within normal range. Left ventricular ejection fraction is 55 to 60%. There is normal LV segmental wall motion. Doppler and Color Flow revealed no significant aortic regurgitation. There is no significant aortic valvular stenosis. Doppler and Color-flow revealed trace mitral regurgitation. Doppler and Color Flow revealed mild tricuspid regurgitation. Estimated PAP 35 mmHg. There is a small to moderate pericardial effusion with no evidence of hemodynamic significance. Signed by : Reji Woods MD Electronically Approved : 07/05/2021 13:53:07
== END 2021-07-05 12:00 | disposition home or self-care (01) ==
LOC: CCL 08:11
PROVIDERS: ATTEND Internal Medicine Cardiovascular Disease
DX: I73.9 Peripheral vascular disease, unspecified (principal); R94.31 Abnormal electrocardiogram [ECG] [EKG]; I10 Essential (primary) hypertension; E78.00 Pure hypercholesterolemia, unspecified; J44.9 Chronic obstructive pulmonary disease, unspecified; F41.9 Anxiety disorder, unspecified; F32.9 Major depressive disorder, single episode, unspecified; F17.210 Nicotine dependence, cigarettes, uncomplicated; Z88.0 Allergy status to penicillin; Z88.8 Allergy status to other drugs, medicaments and biological substances; Z79.899 Other long term (current) drug therapy; Z98.890 Other specified postprocedural states
CPT/HCPCS: 36200; 36415; 75630; 80048; 85025; 85610; 93306; 99152; 99153; C1769; C1894; J1644; J2250; J3010; J3490; Q9967; 75625; C8929

== ENCOUNTER → 2021-08-19 | Outpatient (CLI) | payer BC ==
[2021-07-05 11:45] VITALS: BP 141/70
[~2021-08-19] MED LIST changes: -IODIXANOL 320 MG/ML 100 ML VIAL. ONE; +OMEP40CA7 PO
--- NOTE | 2021-08-20 08:33 | KCIC ---
AP and Lateral Views of the Chest 08/19/2021 3:30 PM Indication: Bronchopneumonia, lung CA. Comparison: CT of the chest abdomen and pelvis June 12, 2021 Findings: There is a right internal jugular port tip at the cavoatrial junction. There is a left-side d retrocardiac opacity correlating to the previously demonstrated mass. Left basilar volume loss is s imilar allowing for differences in technique. No pneumothorax or definitive effusion is seen. Heart s ize is normal. There is a compression deformity of the T7 vertebral body similar to prior CT scan fro m May 2021. No acute osseous changes are appreciated radiographically. Impression: 1. Overall grossly stable appearance of the chest 2. Left retrocardiac masslike opacity, and left basilar volume loss appears similar to comparison [place] allowing for differences in technique Electronically signed by: Quan John MD (08/20/2021 8:30 AM) [id number]
== END ==
LOC: KCIC 15:26
PROVIDERS: ATTEND Physician Assistant Medical
DX: R91.8 Other nonspecific abnormal finding of lung field (principal); J18.0 Bronchopneumonia, unspecified organism; M43.8X4 Other specified deforming dorsopathies, thoracic region
CPT/HCPCS: 71046

== ENCOUNTER → 2021-09-06 | Outpatient (CLI) | payer BC ==
[2021-07-05 11:45] VITALS: BP 141/70
[~2021-09-06] MED LIST changes: +IOHEXOL 240 MG/ML 50ML VIAL. PO ONE; +IOHEXOL 300 MG/ML 100ML VIAL. IV ONE
--- NOTE | 2021-09-09 13:53 | KCIC ---
Study: CT chest, abdomen and pelvis with contrast INDICATION: Lung cancer follow-up. COMPARISON: Most recent CT chest, abdomen and pelvis from 06/12/2021. TECHNIQUE: Helical CT imaging performed of the chest, abdomen and pelvis after the intravenous admini stration of 67 cc Omnipaque 300. Coronal and sagittal reformats were obtained. One or more of the following individualized dose reduction techniques were utilized for this examinat ion: 1. Automated exposure control 2. Adjustment of the mA and/or kV according to patient size 3. Use of iterative reconstruction technique. FINDINGS: CT Chest: Redemonstrated cavitary lesion at the infrahilar left lung which is less well-defined from the compar cheri exam and with increasing central gas. This is difficult to measure but is similar to slightly sm aller in size at approximately 3.1 x 2.7 x 3.9 cm compared to 3.2 x 2.8 x 4.1 cm when measured at sim ilar locations. Internal hyperdensity within the lesion has decreased. As before the left lower lobe is collapsed. Increased small left pleural effusion which is partially loculated. Previously seen sma ll airways to the left lower lobe which maintained aeration are now fluid-filled. Unchanged configura tion of the fat planes around the descending aorta. No newly apparent mediastinal invasion. Unchanged configuration of the pulmonary arteries and veins associated with the collapsed left lower lobe. No newly seen nodule throughout either lung. Unchanged small/moderate pleural effusion. Mediastinal lymph nodes have decreased in size. Representa tive lymph node above the main pulmonary artery on image 27 series 2 now measures 1 cm transverse com pared to 1.4 cm. lymph nodes within the epiphrenic fat are no different in size. Unremarkable thyroid and axilla. Right chest wall Port-A-Cath with the tip terminating within the SVC . Calcific coronary artery disease. Dense calcified and noncalcified atheromatous plaque along the th oracic aorta and involving the partially imaged great vessels. Unchanged T7 superior endplate compression deformity. No acute or aggressive osseous abnormality. CT Abdomen/Pelvis: No newly seen abnormality of the liver, gallbladder, biliary tree, pancreas, spleen or adrenal glands . Unchanged kidneys again with asymmetric cortical lobulation on the left and the left kidney being s lightly smaller in size relative to the right. No hydronephrosis. No change in bladder wall thickness . No newly seen abnormality of the uterus or adnexa. Mild volume colonic stool burden. No inflammatory changes along the expected course of the appendix. No pathologic dilatation of small bowel. Unremarkable stomach. Severe calcified and noncalcified atheromatous plaque with luminal stenosis of the abdominal aorta at the bifurcation and incompletely characterized but clearly severe stenoses of both common iliac cornelio veronica. Stenotic left more so than right external iliac arteries and incompletely characterized stenose s of the common and proximal superficial femoral arteries. Stenoses of the bilateral internal iliac a rteries. No lymphadenopathy by size criteria. No free fluid or pneumoperitoneum. Unchanged body wall soft tiss ues. Osteopenia. Scattered degenerative changes. Unchanged inferior endplate compression deformity at L4. IMPRESSION: 1. A left infrahilar cavitary lesion is similar to slightly decreased in size now measuring up to 3. 9 cm in maximum dimension compared to 4.1 cm noting that the lesion is less well delineated from the most recent comparison hindering accurate measurement. The amount of gas/cavitation has increased and there is an increasing small left pleural effusion . Enlarged mediastinal lymph nodes on the compari son have all decreased in size. Overall a positive treatment response is favored to include the infra hilar abnormality. No new pulmonary nodule or evidence for metastatic disease elsewhere throughout th e chest, abdomen or pelvis. Ongoing attention on follow-up. 2. Unchanged T7 and L4 compression deformities. Unchanged small/moderate volume pericardial effusion . 3. Chronic observations described in the body of the report to include severe calcified and noncalci fied atheromatous plaque burden with coronary artery involvement. Though not fully characterize, pres umably severe multifocal iliac stenoses as well as stenosis at the aortic bifurcation. Electronically signed by: KAMRAN KWAN MD (09/09/2021 1:51 PM) [id number]
== END ==
LOC: KCIC CT 15:03
PROVIDERS: ATTEND Internal Medicine Hematology & Oncology
DX: C34.32 Malignant neoplasm of lower lobe, left bronchus or lung (principal); R91.8 Other nonspecific abnormal finding of lung field; J90 Pleural effusion, not elsewhere classified; R59.9 Enlarged lymph nodes, unspecified; I70.0 Atherosclerosis of aorta; I25.10 Atherosclerotic heart disease of native coronary artery without angina pectoris; I77.1 Stricture of artery; K56.41 Fecal impaction; N28.89 Other specified disorders of kidney and ureter; M43.8X6 Other specified deforming dorsopathies, lumbar region; M43.8X4 Other specified deforming dorsopathies, thoracic region
CPT/HCPCS: 71260; 74177; Q9966; Q9967

== ENCOUNTER → 2021-11-05 | Outpatient (CLI) | payer BC ==
[2021-07-05 11:45] VITALS: BP 141/70
[~2021-11-05] MED LIST changes: +ACLI400A2 IH; -ACLI400A3 IH; -IOHEXOL 240 MG/ML 50ML VIAL. PO ONE; -IOHEXOL 300 MG/ML 100ML VIAL. IV ONE
--- NOTE | 2021-11-05 17:12 | KCIC ---
MRI THORACIC SPINE WO, MR LUMBAR SPINE WO -[id number] Date: 11/05/2021 1:20 PM Indication: Back pain pain, T7 and L4 compression deformity seen on previous CT. History: Lung cance r. Comparison: CT chest abdomen and pelvis 09/06/2021. MRI lumbar spine 01/06/2020. Technique: Multi-planar multi-weighted magnetic resonance imaging of the thoracic and lumbar spine wa s performed without intravenous contrast using the standard spine protocol. FINDINGS: Unchanged chronic T7 and L4 mild compression deformities. No acute fracture. Normal thoracic kyphosis. Straightening of the lumbar lordosis. Mild multilevel degenerative disc katarzyna iccation and disc height loss. No marrow replacing process to suggest malignancy. The conus terminates at a normal level. No abnormal signal is seen within the visualized distal spina l cord. No clumping of intrathecal nerve roots. No soft tissue abnormality in the visualized abdomen or pelvis. Thoracic: Multilevel small disc bulges. No significant spinal canal stenosis or neural foraminal narr owing. T12-L1: No disc bulge. No facet arthropathy. No significant spinal stenosis or neural foraminal narro wing. L1-L2: No disc bulge. No facet arthropathy. No significant spinal stenosis or neural foraminal narrow ing. L2-L3: No disc bulge. No facet arthropathy. No significant spinal stenosis or neural foraminal narrow ing. L3-L4: Disc bulge. Mild facet arthropathy. No spinal stenosis. Mild left lateral recess narrowing. Mi ld bilateral neural foraminal narrowing. L4-L5: Disc bulge. Moderate facet arthropathy. No spinal canal stenosis. Mild bilateral neural forami nal narrowing. L5-S1: Disc bulge. Mild facet arthropathy. No significant spinal stenosis. Mild bilateral neural fora raffaele narrowing. IMPRESSION: 1. No acute fractures. Mild chronic compression deformities at T7 and L4. 2. Mild thoracic and lumbar spondylosis. Electronically signed by: Vahid Mina MD (11/05/2021 5:09 PM) [facility]ITALGen[facility]ieve
== END ==
LOC: KCIC MRI 13:02
PROVIDERS: ATTEND Family Medicine
DX: S32.040A Wedge compression fracture of fourth lumbar vertebra, initial encounter for closed fracture (principal); S22.060A Wedge compression fracture of T7-T8 vertebra, initial encounter for closed fracture; M47.815 Spondylosis without myelopathy or radiculopathy, thoracolumbar region; M48.07 Spinal stenosis, lumbosacral region; M47.817 Spondylosis without myelopathy or radiculopathy, lumbosacral region; M51.36 Other intervertebral disc degeneration, lumbar region; M43.8X5 Other specified deforming dorsopathies, thoracolumbar region; M51.27 Other intervertebral disc displacement, lumbosacral region; X58.XXXA Exposure to other specified factors, initial encounter; Y93.89 Activity, other specified; Y92.89 Other specified places as the place of occurrence of the external cause; Y99.8 Other external cause status
CPT/HCPCS: 72146; 72148